=== PATIENT | female | born 1935 | race Caucasian/White ===

== ENCOUNTER 2018-01-13 08:03 | Day surgery (SDC) | payer MEDICARE, BC ==
[2018-01-13] MEDS ORDERED: Lactated Ringers 1,000 ML IV SCH (08:45)
[2018-01-13] MEDS ORDERED: Propofol 200 MG/20 ML SDV ONE (09:19)
[2018-01-13] MEDS ORDERED: fentaNYL 100 MCG/2 ML SDV ONE (09:19)
[2018-01-13] MEDS ORDERED: Midazolam 1 MG/ML 2 ML SDV ONE (09:20)
--- NOTE | 2018-01-13 11:47 | OR ---
DATE OF PROCEDURE: 01/13/2018 PREOPERATIVE DIAGNOSES: 1. Dysphagia. 2. Colon cancer screening. 3. Reportedly, positive FIT test. POSTOPERATIVE DIAGNOSES: 1. Unremarkable esophagus. 2. Pre-pyloric ulcers. 3. Unremarkable colon. PROCEDURES PERFORMED: 1. Esophagogastroduodenoscopy with antral biopsies for CLOtest, sent for pathology to look for Helicobacter pylori. 2. Colonoscopy to the cecum. ANESTHESIA: IV anesthesia with monitored anesthesia care. INDICATION: This 82-year-old white female is referred for upper and lower endoscopies. Indication for upper endoscopy is dysphagia. She says occasionally food gets stuck and will not pass, and she has to vomit it back up to relieve the obstruction. Indication for colonoscopy is positive FIT test, and she has not had one in over 10 years. I counseled her for these procedures, including risks and alternatives, and she gave her informed consent to proceed. DESCRIPTION OF PROCEDURE: The patient was placed in the left lateral decubitus position. IV anesthesia was administered by the Anesthesia Service. Time-out was held. The flexible video Olympus upper endoscope was passed through her mouth, down her esophagus, and into her stomach. The scope was easily passed through the pylorus and into the duodenum, reaching its third portion. The scope was then slowly withdrawn examining the mucosa throughout. The duodenal mucosa appeared unremarkable. The scope was brought up through the pylorus and into the antrum. In the antrum, we saw several small pre-pyloric ulcers. There was no bleeding associated with them. We obtained biopsies of this area for pathology to look for Helicobacter pylori and for CLOtest. The scope was retroflexed. The proximal stomach appeared unremarkable. The scope was straightened and brought up to the GE junction. This appeared unremarkable. The scope was then brought up through the unremarkable-appearing esophagus and was removed. Next, a rectal exam was performed, which was unremarkable. The flexible video Olympus colonoscope was introduced through her anus, up her rectum and out her colon, all the way to the cecum. Once the cecum was reached, the scope was slowly withdrawn, examining the mucosa throughout. No mucosal abnormalities were noted. The scope was retroflexed in the rectum with the distal rectum appearing unremarkable. The scope was straightened and removed. She tolerated the procedure well. Wesly Birmingham MD /[id number]
[2018-01-13 12:08] VITALS: BP 110/67
== END 2018-01-13 12:40 | disposition home or self-care (01) ==
LOC: JP.SDS 08:03
PROVIDERS: ATTEND Surgery
DX: R13.10 Dysphagia, unspecified (principal); R19.5 Other fecal abnormalities; I48.91 Unspecified atrial fibrillation; J43.9 Emphysema, unspecified; Z88.0 Allergy status to penicillin; Z88.2 Allergy status to sulfonamides; Z88.5 Allergy status to narcotic agent
CPT/HCPCS: 43239; 45378; 87081; J2250; J2704; J3010; J7120

== ENCOUNTER 2018-07-31 02:34 | Emergency (ER) | payer MEDICARE, BC ==
[2018-07-31 02:58] VITALS: BP 132/78
--- NOTE | 2018-07-31 03:19 | EDM.PDOC ---
ED HPI GENERAL MEDICAL PROBLEM - General Chief Complaint: ENT Problem Stated Complaint: NOSEBLEED Time Seen by Provider: 07/31/18 03:12 Source of Information: Reports: Patient, Family, RN Notes Reviewed History Limitations: Reports: No Limitations - History of Present Illness INITIAL COMMENTS - FREE TEXT/NARRATIVE: 83-year-old female presents emergency department day complaint of nosebleed right naris, she states she awoke this morning and had bleeding after she blew her nose was unable to get it stopped does take Coumadin for history of atrial fibrillation, otherwise no other complaints Treatments HOME PERFORMANCE CONSULTANT: Reports: Other (see below) Other Treatments HOME PERFORMANCE CONSULTANT: none - Related Data Allergies Allergy/AdvReac Type Severity Reaction Status Date / Time adhesive Allergy Other Verified 07/31/18 02:55 morphine Allergy Hallucinati Verified 07/31/18 02:55 ons Penicillins Allergy Rash Verified 07/31/18 02:55 Sulfa (Sulfonamide Allergy Hives Verified 07/31/18 02:55 Antibiotics) Home Meds: Home Meds Albuterol Sulfate [Proair Hfa] 2 puff IH ASDIRECTED PRN 03/09/13 [History] Calcium/Mag/D3/B12/FA/B6/[place] [Folgard OS] 1 each PO DAILY 03/09/13 [History] Metoprolol Tartrate 50 mg PO BID 03/09/13 [History] Multivitamin [Multi-Vitamin Daily] 1 each PO DAILY 03/09/13 [History] Warfarin Sliding Scale [Coumadin Sliding Scale] 5 mg PO ASDIRECTED 01/11/18 [ History] Fluticasone/Vilanterol [Breo Ellipta 100-25 MCG Inhalation Kit] 1 inh INH DAILY 07/31/18 [History] Warfarin [Coumadin] 2.5 mg PO DAILY 07/31/18 [History] Past Medical History HEENT History: Reports: Allergic Rhinitis, Cataract, Impaired Vision Cardiovascular History: Reports: Afib Respiratory History: Reports: Asthma, COPD Gastrointestinal History: Reports: GERD 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: Musculoskeletal History: Reports: Arthritis Hematologic History: Reports: Anticoagulation Therapy, Blood Transfusion(s) Dermatologic History: Reports: Eczema - Infectious Disease History Infectious Disease History: Reports: Chicken Pox, Measles, Mumps - Past Surgical History HEENT Surgical History: Reports: Cataract Surgery, Tonsillectomy GI Surgical History: Reports: Appendectomy, Cholecystectomy, Colonoscopy, EGD, Hernia, Inguinal Female Surgical History: Reports: Breast Biopsy, Hysterectomy, Salpingo- Oophorectomy Social & Family History - Family History Family Medical History: Noncontributory - Tobacco Use Smoking Status *Q: Never Smoker - Caffeine Use Caffeine Use: Reports: Coffee, Soda - Recreational Drug Use Recreational Drug Use: No ED ROS ENT - Review of Systems Review Of Systems: See Below Constitutional: Reports: No Symptoms HEENT: Reports: Nosebleed Respiratory: Reports: No Symptoms Cardiovascular: Reports: No Symptoms GI/Abdominal: Reports: No Symptoms ED EXAM, ENT - Physical Exam Exam: See Below Exam Limited By: No Limitations General Appearance: Alert, WD/WN, No Apparent Distress Eye Exam: Bilateral Eye: Normal Inspection Nose: Normal Inspection, Dried Blood. No: Active Bleeding Mouth/Throat: Normal Inspection, Normal Gums, Normal Lips, Normal Oropharynx, Normal Teeth Head: Atraumatic, Normocephalic Respiratory/Chest: No Respiratory Distress Course - Vital Signs Last Recorded V/S: Last Vital Signs Temp 98.1 F 07/31/18 02:58 Pulse 88 07/31/18 02:58 Resp 16 07/31/18 02:58 BP 132/78 07/31/18 02:58 Pulse Ox 98 07/31/18 02:58 - Orders/Labs/Meds Labs: Laboratory Tests 07/31/18 07/31/18 Range/Units 03:25 03:25 Hgb 13.7 (12.0-15.0) g/dL PT 23.0 H (9.5-12.0) sec INR 2.19 H (0.80-1.20) Departure - Departure Time of Disposition: 04:04 Disposition: Home, Self-Care 01 Condition: Good Clinical Impression: Epistaxis - Discharge Information Referrals: Jim Moore NP [Primary Care Provider] - Forms: ED Department Discharge Additional Instructions: Continue to use the nose clamp as needed to control bleeding symptoms, Please followup with your primary care provider in 3-5 days if not better, please call return to the emergency department with worsening of symptoms. - Assessment/Plan Plan: Assessment Acuity = acute Site and laterality = epistaxis right naris Etiology = unclear etiology Manifestations = none] Location of injury = Home Lab values = hemoglobin 13.7, INR 2.19 Plan After initial clamping she had no bleeding, plan is discharge home with nose clamp and follow-up with primary care 3-5 days if symptoms continue instructions were provided This note was dictated using [employer] voice recognition software please call with any questions on syntax or grammar.
== END 2018-07-31 04:17 | disposition home or self-care (01) ==
LOC: JP.ED 02:34
DX: R04.0 Epistaxis (principal); I48.91 Unspecified atrial fibrillation; J44.9 Chronic obstructive pulmonary disease, unspecified; Z88.8 Allergy status to other drugs, medicaments and biological substances; Z88.0 Allergy status to penicillin; Z88.2 Allergy status to sulfonamides; Z79.899 Other long term (current) drug therapy; Z79.01 Long term (current) use of anticoagulants
CPT/HCPCS: 36415; 85018; 85610; 99282; 99284

== ENCOUNTER 2021-05-25 16:21 | Inpatient (IN) | payer MEDICARE, BC ==
[2021-05-25] MEDS ORDERED: Sodium Chloride 0.9% 10 ML Syringe FLUSH PRN (17:03)
--- NOTE | 2021-05-25 17:41 | EDM.PDOC ---
ED HPI GENERAL MEDICAL PROBLEM - General Chief Complaint: Gastrointestinal Problem Stated Complaint: SOB, FATIGUE, CONSTIPATION AND DIARRHEA Time Seen by Provider: 05/25/21 16:51 Source of Information: Reports: Patient, Family History Limitations: Reports: No Limitations - History of Present Illness INITIAL COMMENTS - FREE TEXT/NARRATIVE: Jose is an 85-year-old female presenting to the ED with concerns of GI bleeding. Patient was in her usual state of health when she went to have a bowel movement this morning and initially had a very hard "rabbit pellet" stool followed by d ark bloody diarrhea. She has had several episodes since. She is on anticoagulation with Coumadin for atrial fibrillation. She denies taking any aspirin but has been taking some Tylenol and ibuprofen. Does report having some increased lightheadedness and dizziness today as well as more fatigue prompting her family to bring her in for evaluation. He denies any previous history of ulcers or GI bleed. - Related Data Allergies Allergy/AdvReac Type Severity Reaction Status Date / Time adhesive Allergy Other Verified 08/06/18 16:09 morphine Allergy Hallucinati Verified 08/06/18 16:09 ons Penicillins Allergy Rash Verified 08/06/18 16:09 Sulfa (Sulfonamide Allergy Hives Verified 08/06/18 16:09 Antibiotics) Home Meds: Home Meds Albuterol Sulfate [Proair Hfa] 2 puff IH ASDIRECTED PRN 03/09/13 [History] Calcium/Mag/D3/B12/FA/B6/[place] [Folgard OS] 1 each PO DAILY 03/09/13 [History] Metoprolol Tartrate 50 mg PO BID 03/09/13 [History] Multivitamin [Multi-Vitamin Daily] 1 each PO DAILY 03/09/13 [History] Warfarin Sliding Scale [Coumadin Sliding Scale] 5 mg PO ASDIRECTED 01/11/18 [History] Fluticasone/Vilanterol [Breo Ellipta 100-25 MCG Inhalation Kit] 1 inh INH DAILY 07/31/18 [History] Warfarin [Coumadin] 2.5 mg PO DAILY 07/31/18 [History] Past Medical History HEENT History: Reports: Allergic Rhinitis, Cataract, Impaired Vision Cardiovascular History: Reports: Afib Respiratory History: Reports: Asthma, COPD Gastrointestinal History: Reports: 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: Musculoskeletal History: Reports: Arthritis Hematologic History: Reports: Anticoagulation Therapy, Blood Transfusion(s) Dermatologic History: Reports: Eczema - Infectious Disease History Infectious Disease History: Reports: Chicken Pox, Measles, Mumps - Past Surgical History HEENT Surgical History: Reports: Cataract Surgery, Tonsillectomy Cardiovascular Surgical History: Reports: None GI Surgical History: Reports: Appendectomy, Cholecystectomy, Colonoscopy, EGD, Hernia, Inguinal Female Surgical History: Reports: Breast Biopsy, Hysterectomy, Salpingo- Oophorectomy Social & Family History - Family History Family Medical History: No Pertinent Family History - Tobacco Use Tobacco Use Status *Q: Never Tobacco User - Caffeine Use Caffeine Use: Reports: Coffee ED ROS GENERAL - Review of Systems Review Of Systems: See Below Constitutional: Reports: Malaise, Weakness (Generalized) HEENT: Reports: No Symptoms Respiratory: Reports: No Symptoms Cardiovascular: Reports: No Symptoms Endocrine: Reports: No Symptoms GI/Abdominal: Reports: Diarrhea, Hematochezia, Melena : Reports: No Symptoms Musculoskeletal: Reports: No Symptoms Skin: Reports: No Symptoms Neurological: Reports: Dizziness Psychiatric: Reports: No Symptoms Hematologic/Lymphatic: Reports: Easy Bleeding (Patient is anticoagulated with Coumadin for atrial fibrillation) Immunologic: Reports: No Symptoms ED EXAM, GI/ABD - Physical Exam Exam: See Below Exam Limited By: No Limitations General Appearance: Alert, No Apparent Distress, Anxious (Mildly anxious) Eyes: Bilateral: EOMI Throat/Mouth: Normal Inspection, Normal Oropharynx, Normal Voice, No Airway Compromise Head: Normocephalic Neck: Normal Inspection, Supple Respiratory/Chest: No Respiratory Distress, Lungs Clear, Normal Breath Sounds Cardiovascular: Normal Peripheral Pulses, No Murmur, Irregularly Irregular GI/Abdominal Exam: Normal Bowel Sounds, Soft, Non-Tender. No: Guarding, Rebound Rectal (Female) Exam: Normal Exam, Normal Rectal Tone, Black Stool, Heme + Stool. No: Hemorrhoids, Mass, Perirectal Abscess, Rectal Fissure Extremities: Normal Inspection Neurological: Alert, Oriented, Normal Cognition, No Motor/Sensory Deficits Course - Vital Signs Last Recorded V/S: Last Vital Signs Temp 36.7 C 05/25/21 17:48 Pulse 118 H 05/25/21 17:48 Resp 26 H 05/25/21 17:48 BP 96/45 L 05/25/21 17:48 Pulse Ox 96 05/25/21 17:48 - Orders/Labs/Meds Orders: Active Orders 24 hr Category Date Time Status COVID-19/FLU A+B/RSV [MOLEC] Stat Lab 05/25/21 18:07 Ordered PATIENT RETYPE [BBK] Stat Lab 05/25/21 17:10 Results TYPE AND SCREEN [BBK] Stat Lab 05/25/21 17:10 Received Phytonadione [AquaMephyton] 10 mg Med 05/25/21 17:48 Active Sodium Chloride 0.9% [Normal Saline] 50 ml IV NOW Sodium Chloride 0.9% [Saline Flush] Med 05/25/21 17:03 Active 10 ml FLUSH ASDIRECTED PRN Isolation [COMM] Stat Oth 05/25/21 18:07 Ordered Saline Lock Insert [OM.PC] Routine Oth 05/25/21 17:03 Ordered Medication Orders Phytonadione 10 mg/ Sodium (Chloride) 51 mls @ 100 mls/hr IV NOW ONE Stop: 05/25/21 18:18 Last Admin: 05/25/21 17:57 Dose: 100 mls/hr Documented by: PREILOR Sodium Chloride (Sodium Chloride 0.9% 10 Ml Syringe) 10 ml FLUSH ASDIRECTED PRN PRN Reason: Keep Vein Open Last Admin: 05/25/21 17:17 Dose: 10 ml Documented by: PREILOR Labs: Laboratory Tests 05/25/21 05/25/21 05/25/21 Range/Units 17:10 17:10 17:10 WBC 8.3 (4.5-11.0) K/uL RBC 3.03 L (3.30-5.50) M/uL Hgb 9.7 L D (12.0-15.0) g/dL Hct 30.0 L (36.0-48.0) % MCV 99 H (80-98) fL MCH 32 H (27-31) pg MCHC 32 (32-36) % Plt Count 252 (150-400) K/uL Neut % (Auto) 83.5 H (36-66) % Lymph % (Auto) 12.7 L (24-44) % [place] % (Auto) 3.7 (2-6) % Eos % (Auto) 0.0 L (2-4) % Baso % (Auto) 0.1 (0-1) % PT 31.4 H (9.2-10.6) sec INR 3.2 APTT 30.3 (21.4-31.8) sec Sodium 143 (140-148) mmol/L Potassium 5.0 (3.6-5.2) mmol/L Chloride 106 (100-108) mmol/L Carbon Dioxide 26 (21-32) mmol/L Anion Gap 11.2 (5.0-14.0) mmol/L BUN 67 H D (7-18) mg/dL Creatinine 0.7 (0.6-1.0) mg/dL Est Cr Clr Drug Dosing 47.51 mL/min Estimated GFR (MDRD) > 60 (>60) Glucose 135 H (74-106) mg/dL Lactic Acid (0.4-2.0) mmol/L Calcium 8.7 (8.5-10.1) mg/dL Total Bilirubin 0.9 (0.2-1.0) mg/dL AST 19 (15-37) U/L ALT 31 (12-78) U/L Alkaline Phosphatase 110 (46-116) U/L Total Protein 5.9 L (6.4-8.2) g/dL Albumin 3.2 L (3.4-5.0) g/dL Globulin 2.7 (2.3-3.5) g/dL Albumin/Globulin Ratio 1.2 (1.2-2.2) Blood Type Gel Antibody Screen 05/25/21 05/25/21 Range/Units 17:10 17:10 WBC (4.5-11.0) K/uL RBC (3.30-5.50) M/uL Hgb (12.0-15.0) g/dL Hct (36.0-48.0) % MCV (80-98) fL MCH (27-31) pg MCHC (32-36) % Plt Count (150-400) K/uL Neut % (Auto) (36-66) % Lymph % (Auto) (24-44) % [place] % (Auto) (2-6) % Eos % (Auto) (2-4) % Baso % (Auto) (0-1) % PT (9.2-10.6) sec INR APTT (21.4-31.8) sec Sodium (140-148) mmol/L Potassium (3.6-5.2) mmol/L Chloride (100-108) mmol/L Carbon Dioxide (21-32) mmol/L Anion Gap (5.0-14.0) mmol/L BUN (7-18) mg/dL Creatinine (0.6-1.0) mg/dL Est Cr Clr Drug Dosing mL/min Estimated GFR (MDRD) (>60) Glucose (74-106) mg/dL Lactic Acid 2.8 H (0.4-2.0) mmol/L Calcium (8.5-10.1) mg/dL Total Bilirubin (0.2-1.0) mg/dL AST (15-37) U/L ALT (12-78) U/L Alkaline Phosphatase (46-116) U/L Total Protein (6.4-8.2) g/dL Albumin (3.4-5.0) g/dL Globulin (2.3-3.5) g/dL Albumin/Globulin Ratio (1.2-2.2) Blood Type O NEGATIVE Gel Antibody Screen Negative Meds: Medications Generic Name Dose Route Start Last Admin Trade Name Freq PRN Reason Stop Dose Admin Phytonadione 10 mg/ Sodium 51 mls @ 100 mls/hr 05/25/21 17:48 05/25/21 17:57 Chloride IV 05/25/21 18:18 100 mls/hr NOW ONE Administration Sodium Chloride 10 ml 05/25/21 17:03 05/25/21 17:17 Sodium Chloride 0.9% 10 Ml Syringe FLUSH 10 ml ASDIRECTED PRN Administration Keep Vein Open Discontinued Medications Generic Name Dose Route Start Last Admin Trade Name Freq PRN Reason Stop Dose Admin Pantoprazole Sodium 40 mg 05/25/21 18:04 Pantoprazole 40 Mg Vial IVPUSH 05/25/21 18:05 ONETIME ONE - Re-Assessments/Exams Free Text/Narrative Re-Assessment/Exam: 05/25/21 18:07 patient's labs showing a leukocyte count of 8.3, hemoglobin of 9.7 which is down from 13.73 months ago, had a crit of 30 and a platelet count of 252,000. Her comprehensive metabolic panel shows a sodium 143, potassium 5.0, chloride of 106, bicarbonate of 26, BUN of 67 with a creatinine of 0.7 and a glucose of 135. Her GFR is calculated greater than 60. Her PT/INR is 31.4/3.2 and her PTT is 30.3. Patient's lactic acid is 2.8 likely elevated as her BUN is from gastrointestinal bleeding. Patient is positive for blood on the digital rectal exam. With her INR being 3.2, we will give her vitamin K to reverse her in preparation for an endoscopy tomorrow. I discussed the case with Dr. Hodge who will plan to further investigate her source of bleeding. We did initiate PPI with pantoprazole 40 mg IV push. The Coumadin reversal was initiated with vitamin K 10 mg IV. I discussed the case with Dr. Grimm who will arrange for admission of the patient in preparation for the endoscopy. This was discussed with the patient and family who are in agreement with this plan. Departure - Departure Time of Disposition: 18:10 Disposition: Admitted As Inpatient 65 Clinical Impression: GI bleeding Qualifiers: GI bleed type/associated pathology: unspecified gastrointestinal hemorrhage type Qualified Code(s): K92.2 - Gastrointestinal hemorrhage, unspecified - Discharge Information Referrals: Figueroa Coronado MD [Primary Care Provider] - Forms: ED Department Discharge Sepsis Event Note (ED) - Focused Exam Vital Signs: Vital Signs Temp Pulse Resp BP Pulse Ox 05/25/21 17:48 36.7 C 118 H 26 H 96/45 L 96 05/25/21 17:47 118 H 26 H 96/45 L 96 05/25/21 16:45 36.7 C 117 H 22 H 110/53 L 97 - Problem List & Annotations (1) GI bleeding SNOMED Code(s): 86788147 Code(s): K92.2 - GASTROINTESTINAL HEMORRHAGE, UNSPECIFIED Status: Acute Priority: High Current Visit: Yes Qualifiers: GI bleed type/associated pathology: unspecified gastrointestinal hemorrhage type Qualified Code(s): K92.2 - Gastrointestinal hemorrhage, unspecified - Problem List Review Problem List Initiated/Reviewed/Updated: Yes - My Orders Last 24 Hours: My Active Orders 05/25/21 17:03 Sodium Chloride 0.9% [Saline Flush] 10 ml FLUSH ASDIRECTED PRN Saline Lock Insert [OM.PC] Routine 05/25/21 17:10 PATIENT RETYPE [BBK] Stat TYPE AND SCREEN [BBK] Stat 05/25/21 17:48 Phytonadione [AquaMephyton] 10 mg Sodium Chloride 0.9% [Normal Saline] 50 ml IV NOW 05/25/21 18:07 COVID-19/FLU A+B/RSV [MOLEC] Stat Isolation [COMM] Stat - Assessment/Plan Last 24 Hours: My Active Orders 05/25/21 17:03 Sodium Chloride 0.9% [Saline Flush] 10 ml FLUSH ASDIRECTED PRN Saline Lock Insert [OM.PC] Routine 05/25/21 17:10 PATIENT RETYPE [BBK] Stat TYPE AND SCREEN [BBK] Stat 05/25/21 17:48 Phytonadione [AquaMephyton] 10 mg Sodium Chloride 0.9% [Normal Saline] 50 ml IV NOW 05/25/21 18:07 COVID-19/FLU A+B/RSV [MOLEC] Stat Isolation [COMM] Stat
[2021-05-25] MEDS ORDERED: Phytonadione 10 MG in Sodium Chloride 0.9% 50 ML IV ONE (17:48)
[2021-05-25] MEDS ORDERED: Pantoprazole 40 MG Vial IVPUSH ONE (18:04)
[2021-05-25 18:49] LABS: CORONAVIRUS COVID-19 NAA NEGATIVE (NEGATIVE)
--- NOTE | 2021-05-25 18:56 | PCM.HP.2 ---
H&P History of Present Illness - General Date of Service: 05/25/21 Admit Problem/Dx: Admission Diagnosis/Problem Admission Diagnosis/Problem Upper gastrointestinal hemorrhage Source of Information: Patient, Family, Provider History Limitations: Reports: No Limitations - History of Present Illness Initial Comments - Free Text/Narative: CC: I got dizzy and light headed HPI: Jose presents to the emergency room today with intermittent lightheadedness as well as black tarry stools with some blood. She reports intermittent difficulties with dizziness/lightheadedness usually with activity over the past week. These usually resolved with resting. This morning she had a bowel movement that initially started as a very hard stool but was soon followed by what she describes as a fairly large amount of black and tarry stool with some blood that was maroon in color. She had several of these episodes at home before coming in. She did have associated dizziness. She does not report any chest pain. She has not had heartburn. She does not report fevers or chills but has noticed some sweats in the middle of the night, usually around 3 AM. She feels more short of breath than usual and on a good day has dyspnea with even mild exertion. She does not report any chest pain. No nausea or vomiting. Stools had been normal for her which means constipated recently. She does not use nonsteroidal anti-inflammatory medications other than rarely. No use of alcohol or tobacco other than rarely having a glass of wine. No history of gastrointestinal bleeding. Patient does report longstanding difficulty with solid foods feeling like they get stuck while she is trying to swallow them. This has been worse recently. Work-up in the emergency room revealed hemoglobin of 9.7 and as recently as 3 months ago was 13.7. She is mildly tachycardic and has a mildly elevated lactic acid consistent with hypoperfusion. INR is 3. She has received pantoprazole and IV vitamin K in the emergency room. She will be admitted for management of a presumed upper GI bleed with anemia due to blood loss. - Related Data Allergies/Adverse Reactions: Allergies Allergy/AdvReac Type Severity Reaction Status Date / Time adhesive Allergy Other Verified 08/06/18 16:09 morphine Allergy Hallucinati Verified 08/06/18 16:09 ons Penicillins Allergy Rash Verified 08/06/18 16:09 Sulfa (Sulfonamide Allergy Hives Verified 08/06/18 16:09 Antibiotics) Home Medications: Home Meds Albuterol Sulfate [Proair Hfa] 2 puff IH ASDIRECTED PRN 03/09/13 [History] Calcium/Mag/D3/B12/FA/B6/[place] [Folgard OS] 1 each PO DAILY 03/09/13 [History] Metoprolol Tartrate 50 mg PO BID 03/09/13 [History] Multivitamin [Multi-Vitamin Daily] 1 each PO DAILY 03/09/13 [History] Warfarin Sliding Scale [Coumadin Sliding Scale] 5 mg PO ASDIRECTED 01/11/18 [History] Fluticasone/Vilanterol [Breo Ellipta 100-25 MCG Inhalation Kit] 1 inh INH DAILY 07/31/18 [History] Warfarin [Coumadin] 2.5 mg PO DAILY 07/31/18 [History] Past Medical History HEENT History: Reports: Allergic Rhinitis, Cataract, Impaired Vision Cardiovascular History: Reports: Afib Respiratory History: Reports: Asthma, COPD Gastrointestinal History: Reports: GERD HOME HEALTH TRAVEL OT History: Reports: Musculoskeletal History: Reports: Arthritis Hematologic History: Reports: Anticoagulation Therapy, Blood Transfusion(s) Dermatologic History: Reports: Eczema - Infectious Disease History Infectious Disease History: Reports: Chicken Pox, Measles, Mumps - Past Surgical History HEENT Surgical History: Reports: Cataract Surgery, Tonsillectomy Cardiovascular Surgical History: Reports: None GI Surgical History: Reports: Appendectomy, Cholecystectomy, Colonoscopy, EGD, Hernia, Inguinal Female Surgical History: Reports: Breast Biopsy, Hysterectomy, Salpingo- Oophorectomy Social & Family History - Family History Family Medical History: No Pertinent Family History - Tobacco Use Tobacco Use Status *Q: Never Tobacco User - Caffeine Use Caffeine Use: Reports: Coffee - Alcohol Use Alcohol Use History: Yes Date/Time of Last Drink Comment: Rare glass of wine Alcohol Use in Last Twelve Months: Yes Alcohol Use Frequency: Rarely H&P Review of Systems - Review of Systems: Review Of Systems: See Below Free Text/Narrative: A complete 12 point review of systems was obtained. Pertinent positives and negatives are noted in the history of present illness. All other systems were reviewed and were negative except as noted. Exam - Exam Exam: See Below - Vital Signs Vital Signs: Last Vital Signs Temp 36.7 C 05/25/21 17:48 Pulse 110 H 05/25/21 18:40 Resp 40 H 05/25/21 18:40 BP 96/49 L 05/25/21 18:40 Pulse Ox 98 05/25/21 18:40 Weight: 52.163 kg - Exam Quality Assessment: No: Supplemental Oxygen General: Alert, Oriented, Cooperative, Mild Distress, Other (Pale) HEENT: Conjunctiva Clear, Mucosa Moist & [place], Other (Subconjunctival pallor). No: Scleral Icterus Neck: Supple, Trachea Midline. No: Lymphadenopathy Lungs: Clear to Auscultation. No: Normal Respiratory Effort (Mild tachypnea) Cardiovascular: Irregular Rhythm, Tachycardia. No: Systolic Murmur GI/Abdominal Exam: Normal Bowel Sounds, Soft, No Distention, No Mass, Tender (Mild in the epigastrium) Back Exam: Normal Inspection, Full Range of Motion Extremities: No Pedal Edema. No: Increased Warmth Skin: Warm, Dry. No: Rash Neuro Extensive - Mental Status: Alert, Oriented x3, Nl Response to Commands Neuro Extensive - Motor, Sensory, Reflexes: No: Dysarthria, Abnormal Motor, Tremor Psychiatric: Alert, Normal Affect - Patient Data Lab Results Last 24 hrs: Laboratory Results - last 24 hr 05/25/21 05/25/21 05/25/21 Range/Units 17:10 17:10 17:10 WBC 8.3 (4.5-11.0) K/uL RBC 3.03 L (3.30-5.50) M/uL Hgb 9.7 L D (12.0-15.0) g/dL Hct 30.0 L (36.0-48.0) % MCV 99 H (80-98) fL MCH 32 H (27-31) pg MCHC 32 (32-36) % Plt Count 252 (150-400) K/uL Neut % (Auto) 83.5 H (36-66) % Lymph % (Auto) 12.7 L (24-44) % [place] % (Auto) 3.7 (2-6) % Eos % (Auto) 0.0 L (2-4) % Baso % (Auto) 0.1 (0-1) % PT 31.4 H (9.2-10.6) sec INR 3.2 APTT 30.3 (21.4-31.8) sec Sodium 143 (140-148) mmol/L Potassium 5.0 (3.6-5.2) mmol/L Chloride 106 (100-108) mmol/L Carbon Dioxide 26 (21-32) mmol/L Anion Gap 11.2 (5.0-14.0) mmol/L BUN 67 H D (7-18) mg/dL Creatinine 0.7 (0.6-1.0) mg/dL Est Cr Clr Drug Dosing 47.51 mL/min Estimated GFR (MDRD) > 60 (>60) Glucose 135 H (74-106) mg/dL Lactic Acid (0.4-2.0) mmol/L Calcium 8.7 (8.5-10.1) mg/dL Total Bilirubin 0.9 (0.2-1.0) mg/dL AST 19 (15-37) U/L ALT 31 (12-78) U/L Alkaline Phosphatase 110 (46-116) U/L Total Protein 5.9 L (6.4-8.2) g/dL Albumin 3.2 L (3.4-5.0) g/dL Globulin 2.7 (2.3-3.5) g/dL Albumin/Globulin Ratio 1.2 (1.2-2.2) Influenza Type A RNA (NEGATIVE) RSV RNA (INAAT) (NEGATIVE) Influenza Type B RNA (NEGATIVE) SARS-CoV-2 RNA (TAVO) (NEGATIVE) Blood Type Gel Antibody Screen 05/25/21 05/25/21 05/25/21 Range/Units 17:10 17:10 18:09 WBC (4.5-11.0) K/uL RBC (3.30-5.50) M/uL Hgb (12.0-15.0) g/dL Hct (36.0-48.0) % MCV (80-98) fL MCH (27-31) pg MCHC (32-36) % Plt Count (150-400) K/uL Neut % (Auto) (36-66) % Lymph % (Auto) (24-44) % [place] % (Auto) (2-6) % Eos % (Auto) (2-4) % Baso % (Auto) (0-1) % PT (9.2-10.6) sec INR APTT (21.4-31.8) sec Sodium (140-148) mmol/L Potassium (3.6-5.2) mmol/L Chloride (100-108) mmol/L Carbon Dioxide (21-32) mmol/L Anion Gap (5.0-14.0) mmol/L BUN (7-18) mg/dL Creatinine (0.6-1.0) mg/dL Est Cr Clr Drug Dosing mL/min Estimated GFR (MDRD) (>60) Glucose (74-106) mg/dL Lactic Acid 2.8 H (0.4-2.0) mmol/L Calcium (8.5-10.1) mg/dL Total Bilirubin (0.2-1.0) mg/dL AST (15-37) U/L ALT (12-78) U/L Alkaline Phosphatase (46-116) U/L Total Protein (6.4-8.2) g/dL Albumin (3.4-5.0) g/dL Globulin (2.3-3.5) g/dL Albumin/Globulin Ratio (1.2-2.2) Influenza Type A RNA Negative (NEGATIVE) RSV RNA (INAAT) Negative (NEGATIVE) Influenza Type B RNA Negative (NEGATIVE) SARS-CoV-2 RNA (TAVO) Negative (NEGATIVE) Blood Type O NEGATIVE Gel Antibody Screen Negative Result Diagrams: 05/25/21 17:10 05/25/21 17:10 Tre Results Last 24 hrs: Microbiology 05/25/21 17:05 Stool Occult Blood (TRE) - Final Stool / Feces Sepsis Event Note - Evaluation Sepsis Screening Result: No Definite Risk - Focused Exam Vital Signs: Vital Signs Temp Pulse Resp BP Pulse Ox 05/25/21 18:40 110 H 40 H 96/49 L 98 05/25/21 17:48 36.7 C 118 H 26 H 96/45 L 96 05/25/21 17:47 118 H 26 H 96/45 L 96 05/25/21 16:45 36.7 C 117 H 22 H 110/53 L 97 *Q Meaningful Use (ADM) - VTE *Q VTE Pharmacological Contraindications *Q: Active Hemorrhage - VTE Risk Assess *Q Each Risk Factor Represents 1 Point: Abnormal Pulmonary Function (COPD) Total Score 1 Point Risk Factors: 1 Each Risk Factor Represents 2 Points: None Total Score 2 Point Risk Factors: 0 Each Risk Factor Represents 3 Points: Age 75 Years or Greater Total Score 3 Point Risk Factors: 3 Each Risk Factor Represents 5 Points: None Total Score 5 Point Risk Factors: 0 Venous Thromboembolism Risk Factor Score *Q: 4 - Problem List (1) Acute upper gastrointestinal hemorrhage SNOMED Code(s): 21492275 ICD Code: K92.2 - GASTROINTESTINAL HEMORRHAGE, UNSPECIFIED Status: Acute Current Visit: Yes (2) Anemia due to blood loss, acute SNOMED Code(s): 675777985 ICD Code: D62 - ACUTE POSTHEMORRHAGIC ANEMIA Status: Acute Current Visit: Yes (3) Chronic atrial fibrillation SNOMED Code(s): 907392795 ICD Code: I48.20 - CHRONIC ATRIAL FIBRILLATION, UNSPECIFIED Status: Chronic Current Visit: Yes Problem List Initiated/Reviewed/Updated: Yes Orders Last 24hrs: Active Orders 24 hr Category Date Time Status Patient Status Manage Transfer [TRANSFER] Routine ADT 05/25/21 18:49 Ordered PATIENT RETYPE [BBK] Stat Lab 05/25/21 17:10 Results TYPE AND SCREEN [BBK] Stat Lab 05/25/21 17:10 Results Sodium Chloride 0.9% [Normal Saline] 1,000 ml Med 05/25/21 19:00 Active IV ASDIRECTED Sodium Chloride 0.9% [Normal Saline] 1,000 ml Med 05/25/21 19:00 Active IV ASDIRECTED Sodium Chloride 0.9% [Saline Flush] Med 05/25/21 17:03 Active 10 ml FLUSH ASDIRECTED PRN Isolation [COMM] Stat Oth 05/25/21 18:07 Ordered Saline Lock Insert [OM.PC] Routine Oth 05/25/21 17:03 Ordered Resuscitation Status Routine Resus Stat 05/25/21 18:50 Ordered Medication Orders Sodium Chloride (Normal Saline) 1,000 mls @ 100 mls/hr IV ASDIRECTED BENNETT Sodium Chloride (Normal Saline) 1,000 mls @ 500 mls/hr IV ASDIRECTED BENNETT Stop: 05/25/21 20:01 Sodium Chloride (Sodium Chloride 0.9% 10 Ml Syringe) 10 ml FLUSH ASDIRECTED PRN PRN Reason: Keep Vein Open Last Admin: 05/25/21 17:17 Dose: 10 ml Documented by: PREILOR Assessment/Plan Comment:: ASSESSMENT AND PLAN - Upper gastrointestinal hemorrhage-complicated by anemia due to blood loss. Suspect upper GI source versus right colon source. No history of gastrointestinal bleeding. She has therapeutic with her warfarin which has been reversed in the emergency room. She is tachycardic at rest and symptomatic with any activity. Hemoglobin has dropped nearly 4 points from the most recent value. -PPI every 12 hours -500 normal saline bolus now and then start IV fluids continuously -INR in the morning -Repeat hemoglobin and lactic acid at 10 PM, transfuse if hemoglobin less than 8 or persistently hypotensive -Repeat hemoglobin in the morning -Consultation with Dr. Hodge to consider endoscopy in the morning Dysphagia-longstanding and progressive. Mostly solids but occasionally liquids. Sounds like this could be achalasia versus some sort of mechanical obstruction distally. Should get a good look anatomically with the upper endoscopy tomorrow. She does report night sweats. -EGD in the morning Chronic atrial fibrillation-chronically anticoagulated. She did receive vitamin K in the emergency room. She is mildly tachycardic. -Continue metoprolol but reduce dose to 25 mg -Hold warfarin as above Maintenance issues - -DVT prophylaxis-mechanical with active hemorrhage -GI prophylaxis-PPI as above -Nutrition-n.p.o. after midnight -Bardales catheter-not indicated CODE STATUS -DNR/DNI Admission justification -this patient will be admitted for inpatient services and is medically appropriate meeting medical necessity for inpatient admission as outlined in my documentation. I reasonably expect the patient will require inpatient services that span a period time over 2 midnights. I reasonably expect this patient to be discharged or transferred within 96 hours [facility]. Disposition -I anticipate discharge home after the hospital stay Primary care physician -CONCETTA Powers M.D. - Mortality Measure Prognosis:: Good
[2021-05-25] MEDS ORDERED: Sodium Chloride 0.9% 1,000 ML IV SCH (19:00)
[2021-05-25] MEDS ORDERED: Melatonin 3 MG Tab PO PRN (19:26)
[2021-05-25] MEDS ORDERED: Albuterol 8 GM Inhaler INH PRN (19:26)
[2021-05-25] MEDS ORDERED: Albuterol 0.083% 2.5 MG/3 ML Neb Soln NEB PRN (19:26)
[2021-05-25] MEDS ORDERED: LORazepam 2 MG/ML SDV IVPUSH PRN (19:26)
[2021-05-25] MEDS ORDERED: Ondansetron 4 MG/2 ML SDV IV PRN (19:26)
[2021-05-25] MEDS ORDERED: Magnesium Hydroxide 400 MG/5 ML Susp 30 ML Cup PO PRN (19:26)
[2021-05-25] MEDS ORDERED: Ondansetron 4 MG Tab.DIS PO PRN (19:26)
[2021-05-25] MEDS ORDERED: Metoprolol Tartrate 50 MG Tab PO SCH ×2 (21:00)
[2021-05-25] MEDS: Sodium Chloride 0.9% 1,000 ML IV SCH (21:49)
[2021-05-26] MEDS: Pantoprazole 40 MG Vial IV SCH ×2 (06:27→18:29)
[2021-05-26] MEDS ORDERED: Propofol 200 MG/20 ML SDV ONE (06:39)
[2021-05-26] MEDS ORDERED: Lidocaine 2% 5 ML SDV ONE (06:39)
[2021-05-26] MEDS: Metoprolol Tartrate 25 MG Tab PO SCH ×3 (07:18→20:27)
[2021-05-26] MEDS: Sodium Chloride 0.9% 1,000 ML IV SCH (07:29)
[2021-05-26] MEDS ORDERED: Sodium Chloride 0.9% 1,000 ML IV SCH (09:15)
--- NOTE | 2021-05-26 09:52 | PCM.PN ---
- General Info Date of Service: 05/26/21 Subjective Update: No acute events overnight. Tachycardia slightly better today. No abdominal pain or nausea. No melena. Hemoglobin last night was 8.2 and is down to 7.8 this morning. She feels weak and does feel short of breath. EGD this morning revealed a gastric ulcer that was likely the bleeding source but was not actively bleeding. Functional Status: Reports: Pain Controlled - Review of Systems General: Reports: Weakness Gastrointestinal: Denies: Melena - Patient Data Vitals - Most Recent: Last Vital Signs Temp 36.6 C 05/26/21 08:30 Pulse 97 05/26/21 09:10 Resp 20 05/26/21 09:30 BP 95/69 05/26/21 09:30 Pulse Ox 90 L 05/26/21 09:30 Weight - Most Recent: 50.802 kg I&O - Last 24 Hours: Intake & Output 05/25/21 05/26/21 05/26/21 22:59 06:59 14:59 Intake Total 200 1811 100 Output Total 300 400 300 Balance -100 1411 -200 Lab Results Last 24 Hours: Laboratory Results - last 24 hr 05/25/21 05/25/21 05/25/21 Range/Units 17:10 17:10 17:10 WBC 8.3 (4.5-11.0) K/uL RBC 3.03 L (3.30-5.50) M/uL Hgb 9.7 L D (12.0-15.0) g/dL Hct 30.0 L (36.0-48.0) % MCV 99 H (80-98) fL MCH 32 H (27-31) pg MCHC 32 (32-36) % Plt Count 252 (150-400) K/uL Neut % (Auto) 83.5 H (36-66) % Lymph % (Auto) 12.7 L (24-44) % [place] % (Auto) 3.7 (2-6) % Eos % (Auto) 0.0 L (2-4) % Baso % (Auto) 0.1 (0-1) % PT 31.4 H (9.2-10.6) sec INR 3.2 APTT 30.3 (21.4-31.8) sec Sodium 143 (140-148) mmol/L Potassium 5.0 (3.6-5.2) mmol/L Chloride 106 (100-108) mmol/L Carbon Dioxide 26 (21-32) mmol/L Anion Gap 11.2 (5.0-14.0) mmol/L BUN 67 H D (7-18) mg/dL Creatinine 0.7 (0.6-1.0) mg/dL Est Cr Clr Drug Dosing 47.51 mL/min Estimated GFR (MDRD) > 60 (>60) Glucose 135 H (74-106) mg/dL Lactic Acid (0.4-2.0) mmol/L Calcium 8.7 (8.5-10.1) mg/dL Total Bilirubin 0.9 (0.2-1.0) mg/dL AST 19 (15-37) U/L ALT 31 (12-78) U/L Alkaline Phosphatase 110 (46-116) U/L Total Protein 5.9 L (6.4-8.2) g/dL Albumin 3.2 L (3.4-5.0) g/dL Globulin 2.7 (2.3-3.5) g/dL Albumin/Globulin Ratio 1.2 (1.2-2.2) Urine Color (YELLOW) Urine Appearance (CLEAR) Urine pH (5.0-8.0) Ur Specific [place] (1.008-1.030) Urine Protein (NEGATIVE) mg/dL Urine Glucose (UA) (NEGATIVE) mg/dL Urine Ketones (NEGATIVE) mg/dL Urine Occult Blood (NEGATIVE) Urine Nitrite (NEGATIVE) Urine Bilirubin (NEGATIVE) Urine Urobilinogen (0.2-1.0) EU/dL Ur Leukocyte Esterase (NEGATIVE) Urine RBC (0-5) Urine WBC (0-5) Ur Epithelial Cells Amorphous Sediment Urine Bacteria Urine Mucus Influenza Type A RNA (NEGATIVE) RSV RNA (INAAT) (NEGATIVE) Influenza Type B RNA (NEGATIVE) SARS-CoV-2 RNA (TAVO) (NEGATIVE) Blood Type Gel Antibody Screen Crossmatch 05/25/21 05/25/21 05/25/21 Range/Units 17:10 17:10 18:09 WBC (4.5-11.0) K/uL RBC (3.30-5.50) M/uL Hgb (12.0-15.0) g/dL Hct (36.0-48.0) % MCV (80-98) fL MCH (27-31) pg MCHC (32-36) % Plt Count (150-400) K/uL Neut % (Auto) (36-66) % Lymph % (Auto) (24-44) % [place] % (Auto) (2-6) % Eos % (Auto) (2-4) % Baso % (Auto) (0-1) % PT (9.2-10.6) sec INR APTT (21.4-31.8) sec Sodium (140-148) mmol/L Potassium (3.6-5.2) mmol/L Chloride (100-108) mmol/L Carbon Dioxide (21-32) mmol/L Anion Gap (5.0-14.0) mmol/L BUN (7-18) mg/dL Creatinine (0.6-1.0) mg/dL Est Cr Clr Drug Dosing mL/min Estimated GFR (MDRD) (>60) Glucose (74-106) mg/dL Lactic Acid 2.8 H (0.4-2.0) mmol/L Calcium (8.5-10.1) mg/dL Total Bilirubin (0.2-1.0) mg/dL AST (15-37) U/L ALT (12-78) U/L Alkaline Phosphatase (46-116) U/L Total Protein (6.4-8.2) g/dL Albumin (3.4-5.0) g/dL Globulin (2.3-3.5) g/dL Albumin/Globulin Ratio (1.2-2.2) Urine Color (YELLOW) Urine Appearance (CLEAR) Urine pH (5.0-8.0) Ur Specific [place] (1.008-1.030) Urine Protein (NEGATIVE) mg/dL Urine Glucose (UA) (NEGATIVE) mg/dL Urine Ketones (NEGATIVE) mg/dL Urine Occult Blood (NEGATIVE) Urine Nitrite (NEGATIVE) Urine Bilirubin (NEGATIVE) Urine Urobilinogen (0.2-1.0) EU/dL Ur Leukocyte Esterase (NEGATIVE) Urine RBC (0-5) Urine WBC (0-5) Ur Epithelial Cells Amorphous Sediment Urine Bacteria Urine Mucus Influenza Type A RNA Negative (NEGATIVE) RSV RNA (INAAT) Negative (NEGATIVE) Influenza Type B RNA Negative (NEGATIVE) SARS-CoV-2 RNA (TAVO) Negative (NEGATIVE) Blood Type O NEGATIVE Gel Antibody Screen Negative Crossmatch See Detail 05/25/21 05/25/21 05/26/21 Range/Units 22:00 22:07 00:42 WBC (4.5-11.0) K/uL RBC (3.30-5.50) M/uL Hgb 8.2 L (12.0-15.0) g/dL Hct (36.0-48.0) % MCV (80-98) fL MCH (27-31) pg MCHC (32-36) % Plt Count (150-400) K/uL Neut % (Auto) (36-66) % Lymph % (Auto) (24-44) % [place] % (Auto) (2-6) % Eos % (Auto) (2-4) % Baso % (Auto) (0-1) % PT (9.2-10.6) sec INR APTT (21.4-31.8) sec Sodium (140-148) mmol/L Potassium (3.6-5.2) mmol/L Chloride (100-108) mmol/L Carbon Dioxide (21-32) mmol/L Anion Gap (5.0-14.0) mmol/L BUN (7-18) mg/dL Creatinine (0.6-1.0) mg/dL Est Cr Clr Drug Dosing mL/min Estimated GFR (MDRD) (>60) Glucose (74-106) mg/dL Lactic Acid 1.8 (0.4-2.0) mmol/L Calcium (8.5-10.1) mg/dL Total Bilirubin (0.2-1.0) mg/dL AST (15-37) U/L ALT (12-78) U/L Alkaline Phosphatase (46-116) U/L Total Protein (6.4-8.2) g/dL Albumin (3.4-5.0) g/dL Globulin (2.3-3.5) g/dL Albumin/Globulin Ratio (1.2-2.2) Urine Color Yellow (YELLOW) Urine Appearance Clear (CLEAR) Urine pH 5.0 (5.0-8.0) Ur Specific [place] 1.015 (1.008-1.030) Urine Protein Negative (NEGATIVE) mg/dL Urine Glucose (UA) Negative (NEGATIVE) mg/dL Urine Ketones Negative (NEGATIVE) mg/dL Urine Occult Blood Moderate H (NEGATIVE) Urine Nitrite Negative (NEGATIVE) Urine Bilirubin Negative (NEGATIVE) Urine Urobilinogen 0.2 (0.2-1.0) EU/dL Ur Leukocyte Esterase Trace H (NEGATIVE) Urine RBC 0-5 (0-5) Urine WBC 0-5 (0-5) Ur Epithelial Cells Few Amorphous Sediment Few Urine Bacteria Few Urine Mucus Not seen Influenza Type A RNA (NEGATIVE) RSV RNA (INAAT) (NEGATIVE) Influenza Type B RNA (NEGATIVE) SARS-CoV-2 RNA (TAVO) (NEGATIVE) Blood Type Gel Antibody Screen Crossmatch 05/26/21 05/26/21 05/26/21 Range/Units 04:10 04:10 04:10 WBC 5.2 (4.5-11.0) K/uL RBC 2.45 L (3.30-5.50) M/uL Hgb 7.8 L (12.0-15.0) g/dL Hct 24.1 L (36.0-48.0) % MCV 98 (80-98) fL MCH 32 H (27-31) pg MCHC 32 (32-36) % Plt Count 221 (150-400) K/uL Neut % (Auto) (36-66) % Lymph % (Auto) (24-44) % [place] % (Auto) (2-6) % Eos % (Auto) (2-4) % Baso % (Auto) (0-1) % PT 12.2 H (9.2-10.6) sec INR 1.2 D APTT (21.4-31.8) sec Sodium 146 (140-148) mmol/L Potassium 3.9 (3.6-5.2) mmol/L Chloride 110 H (100-108) mmol/L Carbon Dioxide 26 (21-32) mmol/L Anion Gap 13.9 (5.0-14.0) mmol/L BUN 52 H (7-18) mg/dL Creatinine 0.7 (0.6-1.0) mg/dL Est Cr Clr Drug Dosing 46.27 mL/min Estimated GFR (MDRD) > 60 (>60) Glucose 104 (74-106) mg/dL Lactic Acid (0.4-2.0) mmol/L Calcium 8.0 L (8.5-10.1) mg/dL Total Bilirubin (0.2-1.0) mg/dL AST (15-37) U/L ALT (12-78) U/L Alkaline Phosphatase (46-116) U/L Total Protein (6.4-8.2) g/dL Albumin (3.4-5.0) g/dL Globulin (2.3-3.5) g/dL Albumin/Globulin Ratio (1.2-2.2) Urine Color (YELLOW) Urine Appearance (CLEAR) Urine pH (5.0-8.0) Ur Specific [place] (1.008-1.030) Urine Protein (NEGATIVE) mg/dL Urine Glucose (UA) (NEGATIVE) mg/dL Urine Ketones (NEGATIVE) mg/dL Urine Occult Blood (NEGATIVE) Urine Nitrite (NEGATIVE) Urine Bilirubin (NEGATIVE) Urine Urobilinogen (0.2-1.0) EU/dL Ur Leukocyte Esterase (NEGATIVE) Urine RBC (0-5) Urine WBC (0-5) Ur Epithelial Cells Amorphous Sediment Urine Bacteria Urine Mucus Influenza Type A RNA (NEGATIVE) RSV RNA (INAAT) (NEGATIVE) Influenza Type B RNA (NEGATIVE) SARS-CoV-2 RNA (TAVO) (NEGATIVE) Blood Type Gel Antibody Screen Crossmatch Tre Results Last 24 Hours: Microbiology 05/25/21 17:05 Stool Occult Blood (TRE) - Final Stool / Feces Med Orders - Current: Current Medications Acetaminophen (Acetaminophen 325 Mg Tab) 650 mg PO Q4H PRN PRN Reason: Pain (Mild 1-3)/fever Albuterol (Albuterol 8 Gm Inhaler) 0 gm INH Q4H PRN PRN Reason: Dyspnea Albuterol (Albuterol 0.083% 2.5 Mg/3 Ml Neb Soln) 2.5 mg NEB Q4H PRN PRN Reason: Shortness Of Breath/wheezing Sodium Chloride (Normal Saline) 1,000 mls @ 100 mls/hr IV ASDIRECTED [facility] Last Admin: 05/26/21 07:29 Dose: 100 mls/hr Documented by: Lorazepam (Lorazepam 2 Mg/Ml Sdv) 0.5 mg IVPUSH Q4H PRN PRN Reason: Nausea/Vomiting Magnesium Hydroxide (Magnesium Hydroxide 400 Mg/5 Ml Susp 30 Ml Cup) 30 ml PO Q12H PRN PRN Reason: Constipation Melatonin (Melatonin 3 Mg Tab) 9 mg PO BEDTIME PRN PRN Reason: Sleep Metoprolol Tartrate (Metoprolol Tartrate 25 Mg Tab) 25 mg PO BID [facility] Last Admin: 05/26/21 08:11 Dose: Not Given Documented by: Mometasone Furoate/Formoterol Fumar (Formoterol/Mometasone 200-5 Mcg 8.8 Gm Inhaler) 0 puff IH BIDRT [facility] Ondansetron HCl (Ondansetron 4 Mg/2 Ml Sdv) 4 mg IV Q6H PRN PRN Reason: Nausea/Vomiting Ondansetron HCl (Ondansetron 4 Mg Tab.Dis) 4 mg PO Q6H PRN PRN Reason: Nausea able to take PO Pantoprazole Sodium (Pantoprazole 40 Mg Vial) 40 mg IV Q12H [facility] Stop: 05/26/21 23:00 Last Admin: 05/26/21 06:27 Dose: 40 mg Documented by: Senna/Docusate Sodium (Docusate Sodium/Sennosides 50-8.6 Mg Tab) 1 tab PO BID PRN PRN Reason: Constipation Sodium Chloride (Sodium Chloride 0.9% 10 Ml Syringe) 10 ml FLUSH ASDIRECTED PRN PRN Reason: Keep Vein Open Last Admin: 05/25/21 17:17 Dose: 10 ml Documented by: Discontinued Medications Phytonadione 10 mg/ Sodium (Chloride) 51 mls @ 100 mls/hr IV [facility] Stop: 05/25/21 18:18 Last Admin: 05/25/21 17:57 Dose: 100 mls/hr Documented by: Sodium Chloride (Normal Saline) 1,000 mls @ 500 mls/hr IV ASDIRECTED [facility] Stop: 05/25/21 20:01 Last Admin: 05/25/21 19:53 Dose: 500 mls/hr Documented by: Sodium Chloride (Normal Saline) 1,000 mls @ 999 mls/hr IV ASDIRECTED [facility] Stop: 05/26/21 10:16 Lidocaine (Lidocaine 2% 5 Ml Sdv) Confirm Administered Dose 5 ml .ROUTE .STK-MED ONE Stop: 05/26/21 06:40 Metoprolol Tartrate (Metoprolol Tartrate 50 Mg Tab) 50 mg PO BID [facility] Metoprolol Tartrate (Metoprolol Tartrate 50 Mg Tab) 25 mg PO BID [facility] Last Admin: 05/25/21 20:32 Dose: 25 mg Documented by: Pantoprazole Sodium (Pantoprazole 40 Mg Vial) 40 mg IVPUSH ONETIME ONE Stop: 05/25/21 18:05 Last Admin: 05/25/21 18:15 Dose: 40 mg Documented by: Propofol (Propofol 200 Mg/20 Ml Sdv) Confirm Administered Dose 200 mg .ROUTE .STK-MED ONE Stop: 05/26/21 06:40 - Exam Quality Assessment: No: Supplemental Oxygen General: Alert, Oriented, Cooperative, No Acute Distress Lungs: Clear to Auscultation, Normal Respiratory Effort Cardiovascular: Regular Rate, Irregular Rhythm GI/Abdominal Exam: Soft, No Distention Extremities: No Pedal Edema. No: Increased Warmth Skin: Warm, Dry Psy/Mental Status: Alert, Normal Affect - Patient Data Lab Results Last 24 hrs: Laboratory Results - last 24 hr 05/25/21 05/25/21 05/25/21 Range/Units 17:10 17:10 17:10 WBC 8.3 (4.5-11.0) K/uL RBC 3.03 L (3.30-5.50) M/uL Hgb 9.7 L D (12.0-15.0) g/dL Hct 30.0 L (36.0-48.0) % MCV 99 H (80-98) fL MCH 32 H (27-31) pg MCHC 32 (32-36) % Plt Count 252 (150-400) K/uL Neut % (Auto) 83.5 H (36-66) % Lymph % (Auto) 12.7 L (24-44) % [place] % (Auto) 3.7 (2-6) % Eos % (Auto) 0.0 L (2-4) % Baso % (Auto) 0.1 (0-1) % PT 31.4 H (9.2-10.6) sec INR 3.2 APTT 30.3 (21.4-31.8) sec Sodium 143 (140-148) mmol/L Potassium 5.0 (3.6-5.2) mmol/L Chloride 106 (100-108) mmol/L Carbon Dioxide 26 (21-32) mmol/L Anion Gap 11.2 (5.0-14.0) mmol/L BUN 67 H D (7-18) mg/dL Creatinine 0.7 (0.6-1.0) mg/dL Est Cr Clr Drug Dosing 47.51 mL/min Estimated GFR (MDRD) > 60 (>60) Glucose 135 H (74-106) mg/dL Lactic Acid (0.4-2.0) mmol/L Calcium 8.7 (8.5-10.1) mg/dL Total Bilirubin 0.9 (0.2-1.0) mg/dL AST 19 (15-37) U/L ALT 31 (12-78) U/L Alkaline Phosphatase 110 (46-116) U/L Total Protein 5.9 L (6.4-8.2) g/dL Albumin 3.2 L (3.4-5.0) g/dL Globulin 2.7 (2.3-3.5) g/dL Albumin/Globulin Ratio 1.2 (1.2-2.2) Urine Color (YELLOW) Urine Appearance (CLEAR) Urine pH (5.0-8.0) Ur Specific [place] (1.008-1.030) Urine Protein (NEGATIVE) mg/dL Urine Glucose (UA) (NEGATIVE) mg/dL Urine Ketones (NEGATIVE) mg/dL Urine Occult Blood (NEGATIVE) Urine Nitrite (NEGATIVE) Urine Bilirubin (NEGATIVE) Urine Urobilinogen (0.2-1.0) EU/dL Ur Leukocyte Esterase (NEGATIVE) Urine RBC (0-5) Urine WBC (0-5) Ur Epithelial Cells Amorphous Sediment Urine Bacteria Urine Mucus Influenza Type A RNA (NEGATIVE) RSV RNA (INAAT) (NEGATIVE) Influenza Type B RNA (NEGATIVE) SARS-CoV-2 RNA (TAVO) (NEGATIVE) Blood Type Gel Antibody Screen Crossmatch 05/25/21 05/25/21 05/25/21 Range/Units 17:10 17:10 18:09 WBC (4.5-11.0) K/uL RBC (3.30-5.50) M/uL Hgb (12.0-15.0) g/dL Hct (36.0-48.0) % MCV (80-98) fL MCH (27-31) pg MCHC (32-36) % Plt Count (150-400) K/uL Neut % (Auto) (36-66) % Lymph % (Auto) (24-44) % [place] % (Auto) (2-6) % Eos % (Auto) (2-4) % Baso % (Auto) (0-1) % PT (9.2-10.6) sec INR APTT (21.4-31.8) sec Sodium (140-148) mmol/L Potassium (3.6-5.2) mmol/L Chloride (100-108) mmol/L Carbon Dioxide (21-32) mmol/L Anion Gap (5.0-14.0) mmol/L BUN (7-18) mg/dL Creatinine (0.6-1.0) mg/dL Est Cr Clr Drug Dosing mL/min Estimated GFR (MDRD) (>60) Glucose (74-106) mg/dL Lactic Acid 2.8 H (0.4-2.0) mmol/L Calcium (8.5-10.1) mg/dL Total Bilirubin (0.2-1.0) mg/dL AST (15-37) U/L ALT (12-78) U/L Alkaline Phosphatase (46-116) U/L Total Protein (6.4-8.2) g/dL Albumin (3.4-5.0) g/dL Globulin (2.3-3.5) g/dL Albumin/Globulin Ratio (1.2-2.2) Urine Color (YELLOW) Urine Appearance (CLEAR) Urine pH (5.0-8.0) Ur Specific [place] (1.008-1.030) Urine Protein (NEGATIVE) mg/dL Urine Glucose (UA) (NEGATIVE) mg/dL Urine Ketones (NEGATIVE) mg/dL Urine Occult Blood (NEGATIVE) Urine Nitrite (NEGATIVE) Urine Bilirubin (NEGATIVE) Urine Urobilinogen (0.2-1.0) EU/dL Ur Leukocyte Esterase (NEGATIVE) Urine RBC (0-5) Urine WBC (0-5) Ur Epithelial Cells Amorphous Sediment Urine Bacteria Urine Mucus Influenza Type A RNA Negative (NEGATIVE) RSV RNA (INAAT) Negative (NEGATIVE) Influenza Type B RNA Negative (NEGATIVE) SARS-CoV-2 RNA (TAVO) Negative (NEGATIVE) Blood Type O NEGATIVE Gel Antibody Screen Negative Crossmatch See Detail 05/25/21 05/25/21 05/26/21 Range/Units 22:00 22:07 00:42 WBC (4.5-11.0) K/uL RBC (3.30-5.50) M/uL Hgb 8.2 L (12.0-15.0) g/dL Hct (36.0-48.0) % MCV (80-98) fL MCH (27-31) pg MCHC (32-36) % Plt Count (150-400) K/uL Neut % (Auto) (36-66) % Lymph % (Auto) (24-44) % [place] % (Auto) (2-6) % Eos % (Auto) (2-4) % Baso % (Auto) (0-1) % PT (9.2-10.6) sec INR APTT (21.4-31.8) sec Sodium (140-148) mmol/L Potassium (3.6-5.2) mmol/L Chloride (100-108) mmol/L Carbon Dioxide (21-32) mmol/L Anion Gap (5.0-14.0) mmol/L BUN (7-18) mg/dL Creatinine (0.6-1.0) mg/dL Est Cr Clr Drug Dosing mL/min Estimated GFR (MDRD) (>60) Glucose (74-106) mg/dL Lactic Acid 1.8 (0.4-2.0) mmol/L Calcium (8.5-10.1) mg/dL Total Bilirubin (0.2-1.0) mg/dL AST (15-37) U/L ALT (12-78) U/L Alkaline Phosphatase (46-116) U/L Total Protein (6.4-8.2) g/dL Albumin (3.4-5.0) g/dL Globulin (2.3-3.5) g/dL Albumin/Globulin Ratio (1.2-2.2) Urine Color Yellow (YELLOW) Urine Appearance Clear (CLEAR) Urine pH 5.0 (5.0-8.0) Ur Specific [place] 1.015 (1.008-1.030) Urine Protein Negative (NEGATIVE) mg/dL Urine Glucose (UA) Negative (NEGATIVE) mg/dL Urine Ketones Negative (NEGATIVE) mg/dL Urine Occult Blood Moderate H (NEGATIVE) Urine Nitrite Negative (NEGATIVE) Urine Bilirubin Negative (NEGATIVE) Urine Urobilinogen 0.2 (0.2-1.0) EU/dL Ur Leukocyte Esterase Trace H (NEGATIVE) Urine RBC 0-5 (0-5) Urine WBC 0-5 (0-5) Ur Epithelial Cells Few Amorphous Sediment Few Urine Bacteria Few Urine Mucus Not seen Influenza Type A RNA (NEGATIVE) RSV RNA (INAAT) (NEGATIVE) Influenza Type B RNA (NEGATIVE) SARS-CoV-2 RNA (TAVO) (NEGATIVE) Blood Type Gel Antibody Screen Crossmatch 05/26/21 05/26/21 05/26/21 Range/Units 04:10 04:10 04:10 WBC 5.2 (4.5-11.0) K/uL RBC 2.45 L (3.30-5.50) M/uL Hgb 7.8 L (12.0-15.0) g/dL Hct 24.1 L (36.0-48.0) % MCV 98 (80-98) fL MCH 32 H (27-31) pg MCHC 32 (32-36) % Plt Count 221 (150-400) K/uL Neut % (Auto) (36-66) % Lymph % (Auto) (24-44) % [place] % (Auto) (2-6) % Eos % (Auto) (2-4) % Baso % (Auto) (0-1) % PT 12.2 H (9.2-10.6) sec INR 1.2 D APTT (21.4-31.8) sec Sodium 146 (140-148) mmol/L Potassium 3.9 (3.6-5.2) mmol/L Chloride 110 H (100-108) mmol/L Carbon Dioxide 26 (21-32) mmol/L Anion Gap 13.9 (5.0-14.0) mmol/L BUN 52 H (7-18) mg/dL Creatinine 0.7 (0.6-1.0) mg/dL Est Cr Clr Drug Dosing 46.27 mL/min Estimated GFR (MDRD) > 60 (>60) Glucose 104 (74-106) mg/dL Lactic Acid (0.4-2.0) mmol/L Calcium 8.0 L (8.5-10.1) mg/dL Total Bilirubin (0.2-1.0) mg/dL AST (15-37) U/L ALT (12-78) U/L Alkaline Phosphatase (46-116) U/L Total Protein (6.4-8.2) g/dL Albumin (3.4-5.0) g/dL Globulin (2.3-3.5) g/dL Albumin/Globulin Ratio (1.2-2.2) Urine Color (YELLOW) Urine Appearance (CLEAR) Urine pH (5.0-8.0) Ur Specific [place] (1.008-1.030) Urine Protein (NEGATIVE) mg/dL Urine Glucose (UA) (NEGATIVE) mg/dL Urine Ketones (NEGATIVE) mg/dL Urine Occult Blood (NEGATIVE) Urine Nitrite (NEGATIVE) Urine Bilirubin (NEGATIVE) Urine Urobilinogen (0.2-1.0) EU/dL Ur Leukocyte Esterase (NEGATIVE) Urine RBC (0-5) Urine WBC (0-5) Ur Epithelial Cells Amorphous Sediment Urine Bacteria Urine Mucus Influenza Type A RNA (NEGATIVE) RSV RNA (INAAT) (NEGATIVE) Influenza Type B RNA (NEGATIVE) SARS-CoV-2 RNA (TAVO) (NEGATIVE) Blood Type Gel Antibody Screen Crossmatch Result Diagrams: 05/26/21 04:10 05/26/21 04:10 Tre Results Last 24 hrs: Microbiology 05/25/21 17:05 Stool Occult Blood (TRE) - Final Stool / Feces Sepsis Event Note - Evaluation Sepsis Screening Result: No Definite Risk - Focused Exam Vital Signs: Vital Signs Temp Pulse Pulse Resp BP BP Pulse Ox 05/26/21 09:30 20 95/69 90 L 05/26/21 09:10 97 20 89/50 L 93 L 05/26/21 09:02 127 H 22 H 99/54 L 93 L 05/26/21 08:30 36.6 C 76 12 93/51 L 98 05/26/21 08:25 71 12 88/50 L 98 05/26/21 08:20 73 12 91/47 L 100 05/26/21 08:15 36.6 C 77 12 82/43 L 100 05/26/21 08:10 73 12 82/42 L 100 05/26/21 08:07 77 89/40 L 05/26/21 08:05 78 12 77/41 L 100 05/26/21 08:00 36.7 C 76 12 77/42 L 100 05/26/21 07:18 94 95/49 L 05/26/21 06:55 36.6 C 84 18 95/49 L 95 05/26/21 04:00 37.9 C 106 H 20 90/50 L 96 05/26/21 00:44 37.7 C 107 H 20 94/49 L 96 - Problem List & Annotations (1) Acute upper gastrointestinal hemorrhage SNOMED Code(s): 29242882 Code(s): K92.2 - GASTROINTESTINAL HEMORRHAGE, UNSPECIFIED Status: Acute Current Visit: Yes (2) Anemia due to blood loss, acute SNOMED Code(s): 457084198 Code(s): D62 - ACUTE POSTHEMORRHAGIC ANEMIA Status: Acute Current Visit: Yes (3) Chronic atrial fibrillation SNOMED Code(s): 801321600 Code(s): I48.20 - CHRONIC ATRIAL FIBRILLATION, UNSPECIFIED Status: Chronic Current Visit: Yes - Problem List Review Problem List Initiated/Reviewed/Updated: Yes - My Orders Last 24 Hours: My Active Orders 05/25/21 18:50 Resuscitation Status Routine 05/25/21 19:00 Sodium Chloride 0.9% [Normal Saline] 1,000 ml IV ASDIRECTED 05/25/21 19:26 Acetaminophen [TylenoL] 650 mg PO Q4H PRN Albuterol [Proventil Neb Soln] 2.5 mg NEB Q4H PRN Albuterol [Ventolin HFA] 0 gm INH Q4H PRN Docusate Sodium/Sennosides [Senna Plus] 1 tab PO BID PRN LORazepam [Ativan] 0.5 mg IVPUSH Q4H PRN Magnesium Hydroxide [Milk of Magnesia] 30 ml PO Q12H PRN Melatonin 9 mg PO BEDTIME PRN Ondansetron [Zofran ODT] 4 mg PO Q6H PRN Ondansetron [Zofran] 4 mg IV Q6H PRN 05/25/21 19:26 Patient Status [ADT] Routine Antiembolic Devices [RC] .Routine Intake and Output [RC] QSHIFT Notify Provider Consults [RC] ASDIRECTED Notify Provider Vital Signs [RC] ASDIRECTED RT Aerosol Therapy [RC] ASDIRECTED RT Post Treatment Assessment [RC] Click to Edit VTE/DVT Education [RC] Per Unit Routine Vital Signs [RC] Q4H Consult to Physician [CONS] Routine Sequential Compression Device [OM.PC] Routine VTE Pharmacological Contraindications [AST] Routine 05/26/21 06:00 Pantoprazole [ProTONIX IV] 40 mg IV Q12H 05/26/21 06:53 Transfuse Red Blood Cells [COMM] Routine 05/26/21 09:00 Metoprolol Tartrate [Lopressor] 25 mg PO BID Mometasone/Formoterol [Dulera 200-5 MCG] 0 puff IH BIDRT 05/26/21 09:03 RED BLOOD CELLS LP [BBK] Routine 05/26/21 09:49 Discontinue Telemetry Monitoring [Cardiac Monitoring Discontinue] [RC] Click to Edit Up With Assistance [RC] ASDIRECTED 05/26/21 15:00 HGB [HEMOGLOBIN] [HEME] Routine 05/27/21 05:00 BASIC METABOLIC PANEL,BMP [CHEM] Timed CBC W/O DIFF,HEMOGRAM [HEME] Timed (1) 05/27/21 07:30 Pantoprazole [ProTONIX] 40 mg PO BIDAC - Plan Plan:: ASSESSMENT AND PLAN - Upper gastrointestinal hemorrhage-complicated by anemia due to blood loss. EGD revealed gastric ulcer that was likely the bleeding source. CLOtest is pending. -PPI every 12 hours today, transition to oral tomorrow -Continue IV fluids -Repeat hemoglobin this afternoon and again in the morning -Follow-up CLOtest Dysphagia-longstanding and progressive. Mostly solids but occasionally liquids. No abnormalities seen on EGD. Chronic atrial fibrillation-chronically anticoagulated. She did receive vitamin K in the emergency room and INR is normal. -Continue metoprolol but reduce dose to 25 mg -Hold warfarin Maintenance issues - -DVT prophylaxis-mechanical with active hemorrhage -GI prophylaxis-PPI as above -Nutrition-full liquids Disposition -I anticipate discharge home after the hospital stay Primary care physician -CONCETTA Powers M.D.
[2021-05-26] MEDS: Acetaminophen 325 MG Tab PO PRN ×2 (10:26→20:26)
[2021-05-26] MEDS: Formoterol/Mometasone 200-5 MCG 8.8 GM Inhaler IH SCH ×2 (10:31→20:27)
[2021-05-26] MEDS ORDERED: Calcium Carbonate 500 MG Tab.Chew PO PRN (14:11)
[2021-05-27] MEDS: Formoterol/Mometasone 200-5 MCG 8.8 GM Inhaler IH SCH ×2 (07:06→21:01)
[2021-05-27] MEDS: Pantoprazole 40 MG Tab.CR PO SCH ×2 (07:40→16:17)
[2021-05-27] MEDS: Metoprolol Tartrate 25 MG Tab PO SCH ×2 (10:02→21:01)
--- NOTE | 2021-05-27 15:38 | PCM.PN ---
- General Info Date of Service: 05/27/21 Subjective Update: Ms. Steele has remained fairly stable since yesterday. There has been a modest drop in hemoglobin this morning from yesterday afternoon. She did have one melenic appearing stool this morning, no other evidence of active bleeding. Blood pressure has remained borderline low, she is asymptomatic with this. Functional Status: Reports: Tolerating Diet, Ambulating, Urinating - Review of Systems General: Reports: Weakness, Fatigue. Denies: Fever, Chills Pulmonary: Reports: No Symptoms Cardiovascular: Reports: No Symptoms Gastrointestinal: Reports: Melena. Denies: Abdominal Pain, Difficulty Swallowing, Hematochezia, Nausea, Vomiting Genitourinary: Reports: No Symptoms - Patient Data Vitals - Most Recent: Last Vital Signs Temp 99 F 05/27/21 15:03 Pulse 81 05/27/21 15:03 Resp 18 05/27/21 15:03 BP 98/51 L 05/27/21 15:03 Pulse Ox 97 05/27/21 15:03 Weight - Most Recent: 112 lb I&O - Last 24 Hours: Intake & Output 05/27/21 05/27/21 05/27/21 06:59 14:59 22:59 Intake Total 750 Output Total 300 Balance 450 Lab Results Last 24 Hours: Laboratory Results - last 24 hr 05/26/21 05/27/21 05/27/21 Range/Units 16:07 05:35 05:35 WBC 6.0 (4.5-11.0) K/uL RBC 2.57 L (3.30-5.50) M/uL Hgb 8.4 L 7.9 L (12.0-15.0) g/dL Hct 24.9 L (36.0-48.0) % MCV 97 (80-98) fL MCH 31 (27-31) pg MCHC 32 (32-36) % Plt Count 177 (150-400) K/uL Sodium 147 (140-148) mmol/L Potassium 3.6 (3.6-5.2) mmol/L Chloride 114 H (100-108) mmol/L Carbon Dioxide 26 (21-32) mmol/L Anion Gap 10.6 (5.0-14.0) mmol/L BUN 28 H (7-18) mg/dL Creatinine 0.6 (0.6-1.0) mg/dL Est Cr Clr Drug Dosing 53.98 mL/min Estimated GFR (MDRD) > 60 (>60) Glucose 94 (74-106) mg/dL Calcium 7.8 L (8.5-10.1) mg/dL Tre Results Last 24 Hours: Microbiology 05/26/21 09:18 CLOtest - Final Stomach NEGATIVE CLOTEST REFERENCE RANGE: NEGATIVE Med Orders - Current: Current Medications Acetaminophen (Acetaminophen 325 Mg Tab) 650 mg PO Q4H PRN PRN Reason: Pain (Mild 1-3)/fever Last Admin: 05/26/21 20:26 Dose: 650 mg Documented by: Albuterol (Albuterol 8 Gm Inhaler) 0 gm INH Q4H PRN PRN Reason: Dyspnea Albuterol (Albuterol 0.083% 2.5 Mg/3 Ml Neb Soln) 2.5 mg NEB Q4H PRN PRN Reason: Shortness Of Breath/wheezing Calcium Carbonate/Glycine (Calcium Carbonate 500 Mg Tab.Chew) 1,000 mg PO Q2H PRN PRN Reason: Indigestion Last Admin: 05/26/21 14:38 Dose: 1,000 mg Documented by: Lorazepam (Lorazepam 2 Mg/Ml Sdv) 0.5 mg IVPUSH Q4H PRN PRN Reason: Nausea/Vomiting Magnesium Hydroxide (Magnesium Hydroxide 400 Mg/5 Ml Susp 30 Ml Cup) 30 ml PO Q12H PRN PRN Reason: Constipation Melatonin (Melatonin 3 Mg Tab) 9 mg PO BEDTIME PRN PRN Reason: Sleep Metoprolol Tartrate (Metoprolol Tartrate 25 Mg Tab) 25 mg PO BID [facility] Last Admin: 05/27/21 10:02 Dose: 25 mg Documented by: Mometasone Furoate/Formoterol Fumar (Formoterol/Mometasone 200-5 Mcg 8.8 Gm Inhaler) 0 puff IH BIDRT [facility] Last Admin: 05/27/21 07:06 Dose: 2 puff Documented by: Ondansetron HCl (Ondansetron 4 Mg/2 Ml Sdv) 4 mg IV Q6H PRN PRN Reason: Nausea/Vomiting Ondansetron HCl (Ondansetron 4 Mg Tab.Dis) 4 mg PO Q6H PRN PRN Reason: Nausea able to take PO Pantoprazole Sodium (Pantoprazole 40 Mg Tab.Cr) 40 mg PO BIDAC [facility] Last Admin: 05/27/21 07:40 Dose: 40 mg Documented by: Senna/Docusate Sodium (Docusate Sodium/Sennosides 50-8.6 Mg Tab) 1 tab PO BID PRN PRN Reason: Constipation Sodium Chloride (Sodium Chloride 0.9% 10 Ml Syringe) 10 ml FLUSH ASDIRECTED PRN PRN Reason: Keep Vein Open Last Admin: 05/25/21 17:17 Dose: 10 ml Documented by: Discontinued Medications Phytonadione 10 mg/ Sodium (Chloride) 51 mls @ 100 mls/hr IV NOW ONE Stop: 05/25/21 18:18 Last Admin: 05/25/21 17:57 Dose: 100 mls/hr Documented by: Sodium Chloride (Normal Saline) 1,000 mls @ 100 mls/hr IV ASDIRECTED [facility] Last Admin: 05/26/21 07:29 Dose: 100 mls/hr Documented by: Sodium Chloride (Normal Saline) 1,000 mls @ 500 mls/hr IV ASDIRECTED [facility] Stop: 05/25/21 20:01 Last Admin: 05/25/21 19:53 Dose: 500 mls/hr Documented by: Sodium Chloride (Normal Saline) 1,000 mls @ 999 mls/hr IV ASDIRECTED [facility] Stop: 05/26/21 10:16 Lidocaine (Lidocaine 2% 5 Ml Sdv) Confirm Administered Dose 5 ml .ROUTE .STK-MED ONE Stop: 05/26/21 06:40 Metoprolol Tartrate (Metoprolol Tartrate 50 Mg Tab) 50 mg PO BID [facility] Metoprolol Tartrate (Metoprolol Tartrate 50 Mg Tab) 25 mg PO BID [facility] Last Admin: 05/25/21 20:32 Dose: 25 mg Documented by: Pantoprazole Sodium (Pantoprazole 40 Mg Vial) 40 mg IVPUSH ONETIME ONE Stop: 05/25/21 18:05 Last Admin: 05/25/21 18:15 Dose: 40 mg Documented by: Pantoprazole Sodium (Pantoprazole 40 Mg Vial) 40 mg IV Q12H [facility] Stop: 05/26/21 23:00 Last Admin: 05/26/21 18:29 Dose: 40 mg Documented by: Propofol (Propofol 200 Mg/20 Ml Sdv) Confirm Administered Dose 200 mg .ROUTE .STK-MED ONE Stop: 05/26/21 06:40 - Exam Quality Assessment: DVT Prophylaxis General: Alert, Oriented, Cooperative, No Acute Distress Lungs: Clear to Auscultation, Normal Respiratory Effort Cardiovascular: Regular Rate, No Murmurs, Irregular Rhythm GI/Abdominal Exam: Soft, Non-Tender, No Organomegaly, No Distention Extremities: Non-Tender, No Pedal Edema - Patient Data Lab Results Last 24 hrs: Laboratory Results - last 24 hr 05/26/21 05/27/21 05/27/21 Range/Units 16:07 05:35 05:35 WBC 6.0 (4.5-11.0) K/uL RBC 2.57 L (3.30-5.50) M/uL Hgb 8.4 L 7.9 L (12.0-15.0) g/dL Hct 24.9 L (36.0-48.0) % MCV 97 (80-98) fL MCH 31 (27-31) pg MCHC 32 (32-36) % Plt Count 177 (150-400) K/uL Sodium 147 (140-148) mmol/L Potassium 3.6 (3.6-5.2) mmol/L Chloride 114 H (100-108) mmol/L Carbon Dioxide 26 (21-32) mmol/L Anion Gap 10.6 (5.0-14.0) mmol/L BUN 28 H (7-18) mg/dL Creatinine 0.6 (0.6-1.0) mg/dL Est Cr Clr Drug Dosing 53.98 mL/min Estimated GFR (MDRD) > 60 (>60) Glucose 94 (74-106) mg/dL Calcium 7.8 L (8.5-10.1) mg/dL Result Diagrams: 05/27/21 05:35 05/27/21 05:35 Tre Results Last 24 hrs: Microbiology 05/26/21 09:18 CLOtest - Final Stomach NEGATIVE CLOTEST REFERENCE RANGE: NEGATIVE Sepsis Event Note - Evaluation Sepsis Screening Result: No Definite Risk - Focused Exam Vital Signs: Vital Signs Temp Pulse Pulse Resp BP BP BP 05/27/21 15:03 99 F 81 18 98/51 L 05/27/21 10:36 98.3 F 57 L 18 97/45 L 05/27/21 10:02 92 127/70 05/27/21 09:32 92 18 104/52 L 05/27/21 07:25 97.9 F 95 16 127/70 05/27/21 07:01 99 F 109 H 18 97/50 L Pulse Ox 05/27/21 15:03 97 05/27/21 10:36 98 05/27/21 10:02 05/27/21 09:32 95 05/27/21 07:25 98 05/27/21 07:01 96 - Problem List Review Problem List Initiated/Reviewed/Updated: Yes - My Orders Last 24 Hours: My Active Orders 05/27/21 15:29 HGB [HEMOGLOBIN] [HEME] Stat 05/28/21 05:00 BASIC METABOLIC PANEL,BMP [CHEM] Timed CBC WITH AUTO DIFF [HEME] Timed - Plan Plan:: ASSESSMENT AND PLAN Upper gastrointestinal hemorrhage-complicated by anemia due to blood loss. EGD revealed gastric ulcer that was likely the bleeding source. CLOtest is pending. -PPI every 12 hours today -Saline lock IV -Repeat hemoglobin this afternoon and again in the morning -Follow-up CLOtest Dysphagia-longstanding and progressive. Mostly solids but occasionally liquids. No abnormalities seen on EGD. Chronic atrial fibrillation-chronically anticoagulated. She did receive vitamin K in the emergency room and INR is normal. -Continue metoprolol but reduce dose to 25 mg -Hold warfarin Maintenance issues - -DVT prophylaxis-mechanical with active hemorrhage -GI prophylaxis-PPI as above -Nutrition-full liquids Disposition -I anticipate discharge home after the hospital stay Primary care physician -Jim Moore NP
[2021-05-28] MEDS: Formoterol/Mometasone 200-5 MCG 8.8 GM Inhaler IH SCH ×2 (07:13→21:50)
[2021-05-28] MEDS: Pantoprazole 40 MG Tab.CR PO SCH ×2 (07:18→16:50)
--- NOTE | 2021-05-28 08:30 | OR ---
DATE OF PROCEDURE: 05/26/2021 SURGEON: Theo Hodge MD PREOPERATIVE DIAGNOSIS: Upper gastrointestinal bleeding. POSTOPERATIVE DIAGNOSES: Upper gastrointestinal bleeding associated with antral gastritis and focal antral ulcer. OPERATIVE PROCEDURE: Esophagogastroduodenoscopy with antral biopsies for CLOtest. ANESTHESIA: IV sedation. INDICATION FOR PROCEDURE: This is an 85-year-old presenting with some black and maroon stools. She is undergoing upper GI endoscopy for diagnostic purposes. Potential risks of the procedure including bleeding and perforation were discussed, and the patient wishes to proceed. DETAILS OF PROCEDURE: The patient was taken to the operating room and placed in a left lateral decubitus position. IV sedation was administered after which the upper GI endoscope was passed orally through the length of the esophagus into the stomach with retroflexion view of the fundus, thereafter through the pyloric channel and into the proximal duodenum. Findings included normal hypopharynx, larynx, upper esophageal sphincter, and esophageal body. The patient had minimal hiatal hernia without inflammation or blood in that area. Within the stomach, there was diffuse antral gastritis and within the sigmoid was a focal antral ulcer measuring around 3 mm. This was fairly deep. Biopsies were bleeding issues. Remainder of the pyloric channel and visualized portions of the duodenum were unremarkable. Biopsies were then obtained from the antrum and sent for CLOtest for H pylori. Minimal bleeding from the biopsy site was seen and the procedure then concluded. The ulcer and gastritis were likely the recent bleeding source. To rule out a malignancy, the patient should have a followup endoscopy in roughly 1 month and to confirm healing of the gastric ulcer. Theo Hodge MD /[id number]
[2021-05-28] MEDS: Metoprolol Tartrate 25 MG Tab PO SCH ×2 (09:24→21:50)
--- NOTE | 2021-05-28 14:22 | PCM.PN ---
- General Info Date of Service: 05/28/21 Subjective Update: Ms. Steele has remained stable since yesterday with no further evidence of active bleeding. Hemoglobin level has varied somewhat on follow-up labs. She denies h ematemesis and melena. Energy level improved and she has been tolerating a full liquid diet. Functional Status: Reports: Tolerating Diet, Ambulating, Urinating - Review of Systems General: Reports: Weakness, Fatigue. Denies: Fever, Chills Pulmonary: Reports: No Symptoms Cardiovascular: Reports: No Symptoms Gastrointestinal: Reports: No Symptoms Genitourinary: Reports: No Symptoms - Patient Data Vitals - Most Recent: Last Vital Signs Temp 97.7 F 05/28/21 11:00 Pulse 74 05/28/21 11:00 Resp 16 05/28/21 11:00 BP 90/46 L 05/28/21 11:00 Pulse Ox 98 05/28/21 11:00 Weight - Most Recent: 112 lb I&O - Last 24 Hours: Intake & Output 05/27/21 05/28/21 05/28/21 22:59 06:59 14:59 Intake Total 550 150 360 Output Total 375 275 500 Balance 175 -125 -140 Lab Results Last 24 Hours: Laboratory Results - last 24 hr 05/27/21 05/28/21 05/28/21 Range/Units 15:29 05:45 05:45 WBC 5.2 (4.5-11.0) K/uL RBC 2.47 L (3.30-5.50) M/uL Hgb 9.4 L 7.9 L (12.0-15.0) g/dL Hct 24.4 L (36.0-48.0) % MCV 99 H (80-98) fL MCH 32 H (27-31) pg MCHC 32 (32-36) % Plt Count 175 (150-400) K/uL Neut % (Auto) 65.1 (36-66) % Lymph % (Auto) 22.0 L (24-44) % [place] % (Auto) 10.2 H (2-6) % Eos % (Auto) 2.5 (2-4) % Baso % (Auto) 0.2 (0-1) % Sodium 146 (140-148) mmol/L Potassium 3.7 (3.6-5.2) mmol/L Chloride 110 H (100-108) mmol/L Carbon Dioxide 28 (21-32) mmol/L Anion Gap 11.7 (5.0-14.0) mmol/L BUN 16 (7-18) mg/dL Creatinine 0.6 (0.6-1.0) mg/dL Est Cr Clr Drug Dosing 53.98 mL/min Estimated GFR (MDRD) > 60 (>60) Glucose 95 (74-106) mg/dL Calcium 7.7 L (8.5-10.1) mg/dL Tre Results Last 24 Hours: Microbiology 05/26/21 09:18 CLOtest - Final Stomach NEGATIVE CLOTEST REFERENCE RANGE: NEGATIVE Med Orders - Current: Current Medications Acetaminophen (Acetaminophen 325 Mg Tab) 650 mg PO Q4H PRN PRN Reason: Pain (Mild 1-3)/fever Last Admin: 05/26/21 20:26 Dose: 650 mg Documented by: Albuterol (Albuterol 8 Gm Inhaler) 0 gm INH Q4H PRN PRN Reason: Dyspnea Albuterol (Albuterol 0.083% 2.5 Mg/3 Ml Neb Soln) 2.5 mg NEB Q4H PRN PRN Reason: Shortness Of Breath/wheezing Calcium Carbonate/Glycine (Calcium Carbonate 500 Mg Tab.Chew) 1,000 mg PO Q2H PRN PRN Reason: Indigestion Last Admin: 05/26/21 14:38 Dose: 1,000 mg Documented by: Lorazepam (Lorazepam 2 Mg/Ml Sdv) 0.5 mg IVPUSH Q4H PRN PRN Reason: Nausea/Vomiting Magnesium Hydroxide (Magnesium Hydroxide 400 Mg/5 Ml Susp 30 Ml Cup) 30 ml PO Q12H PRN PRN Reason: Constipation Melatonin (Melatonin 3 Mg Tab) 9 mg PO BEDTIME PRN PRN Reason: Sleep Metoprolol Tartrate (Metoprolol Tartrate 25 Mg Tab) 25 mg PO BID [facility] Last Admin: 05/28/21 09:24 Dose: 25 mg Documented by: Mometasone Furoate/Formoterol Fumar (Formoterol/Mometasone 200-5 Mcg 8.8 Gm Inhaler) 0 puff IH BIDRT [facility] Last Admin: 05/28/21 07:13 Dose: 2 puff Documented by: Ondansetron HCl (Ondansetron 4 Mg/2 Ml Sdv) 4 mg IV Q6H PRN PRN Reason: Nausea/Vomiting Ondansetron HCl (Ondansetron 4 Mg Tab.Dis) 4 mg PO Q6H PRN PRN Reason: Nausea able to take PO Pantoprazole Sodium ([facility].Cr) [facility] Last Admin: 05/28/21 07:18 Dose: 40 mg Documented by: Senna/Docusate Sodium (Docusate Sodium/Sennosides 50-8.6 Mg Tab) 1 tab PO BID PRN PRN Reason: Constipation Sodium Chloride (Sodium Chloride 0.9% 10 Ml Syringe) 10 ml FLUSH ASDIRECTED PRN PRN Reason: Keep Vein Open Last Admin: 05/25/21 17:17 Dose: 10 ml Documented by: Discontinued Medications Phytonadione 10 mg/ Sodium (Chloride) 51 mls @ 100 mls/hr IV NOW ONE Stop: 05/25/21 18:18 Last Admin: 05/25/21 17:57 Dose: 100 mls/hr Documented by: Sodium Chloride (Normal Saline) 1,000 mls @ 100 mls/hr IV ASDIRECTED [facility] Last Admin: 05/26/21 07:29 Dose: 100 mls/hr Documented by: Sodium Chloride (Normal Saline) 1,000 mls @ 500 mls/hr IV ASDIRECTED [facility] Stop: 05/25/21 20:01 Last Admin: 05/25/21 19:53 Dose: 500 mls/hr Documented by: Sodium Chloride (Normal Saline) 1,000 mls @ 999 mls/hr IV ASDIRECTED [facility] Stop: 05/26/21 10:16 Lidocaine (Lidocaine 2% 5 Ml Sdv) Confirm Administered Dose 5 ml .ROUTE .STK-MED ONE Stop: 05/26/21 06:40 Metoprolol Tartrate (Metoprolol Tartrate 50 Mg Tab) 50 mg PO BID [facility] Metoprolol Tartrate (Metoprolol Tartrate 50 Mg Tab) 25 mg PO BID [facility] Last Admin: 05/25/21 20:32 Dose: 25 mg Documented by: Pantoprazole Sodium (Pantoprazole 40 Mg Vial) 40 mg IVPUSH ONETIME ONE Stop: 05/25/21 18:05 Last Admin: 05/25/21 18:15 Dose: 40 mg Documented by: Pantoprazole Sodium (Pantoprazole 40 Mg Vial) 40 mg IV Q12H [facility] Stop: 05/26/21 23:00 Last Admin: 05/26/21 18:29 Dose: 40 mg Documented by: Propofol (Propofol 200 Mg/20 Ml Sdv) Confirm Administered Dose 200 mg .ROUTE .STK-MED ONE Stop: 05/26/21 06:40 - Exam Quality Assessment: DVT Prophylaxis General: Alert, Oriented, Cooperative, Mild Distress Lungs: Clear to Auscultation, Normal Respiratory Effort Cardiovascular: Regular Rate, Regular Rhythm, No Murmurs GI/Abdominal Exam: Soft, Non-Tender, No Organomegaly, No Distention Extremities: Non-Tender, No Pedal Edema - Patient Data Lab Results Last 24 hrs: Laboratory Results - last 24 hr 05/27/21 05/28/21 05/28/21 Range/Units 15:29 05:45 05:45 WBC 5.2 (4.5-11.0) K/uL RBC 2.47 L (3.30-5.50) M/uL Hgb 9.4 L 7.9 L (12.0-15.0) g/dL Hct 24.4 L (36.0-48.0) % MCV 99 H (80-98) fL MCH 32 H (27-31) pg MCHC 32 (32-36) % Plt Count 175 (150-400) K/uL Neut % (Auto) 65.1 (36-66) % Lymph % (Auto) 22.0 L (24-44) % [place] % (Auto) 10.2 H (2-6) % Eos % (Auto) 2.5 (2-4) % Baso % (Auto) 0.2 (0-1) % Sodium 146 (140-148) mmol/L Potassium 3.7 (3.6-5.2) mmol/L Chloride 110 H (100-108) mmol/L Carbon Dioxide 28 (21-32) mmol/L Anion Gap 11.7 (5.0-14.0) mmol/L BUN 16 (7-18) mg/dL Creatinine 0.6 (0.6-1.0) mg/dL Est Cr Clr Drug Dosing 53.98 mL/min Estimated GFR (MDRD) > 60 (>60) Glucose 95 (74-106) mg/dL Calcium 7.7 L (8.5-10.1) mg/dL Result Diagrams: 05/28/21 05:45 05/28/21 05:45 Tre Results Last 24 hrs: Microbiology 05/26/21 09:18 CLOtest - Final Stomach NEGATIVE CLOTEST REFERENCE RANGE: NEGATIVE Sepsis Event Note - Evaluation Sepsis Screening Result: No Definite Risk - Focused Exam Vital Signs: Vital Signs Temp Pulse Pulse Resp BP BP BP 05/28/21 11:00 97.7 F 74 16 90/46 L 05/28/21 09:24 87 106/43 L 05/28/21 07:00 98.7 F 87 16 106/43 L 05/28/21 02:20 99.3 F 78 16 105/54 L Pulse Ox 05/28/21 11:00 98 05/28/21 09:24 05/28/21 07:00 95 05/28/21 02:20 94 L - Problem List Review Problem List Initiated/Reviewed/Updated: Yes - My Orders Last 24 Hours: My Active Orders 05/28/21 Lunch Soft Diet [DIET] 05/28/21 17:00 HGB [HEMOGLOBIN] [HEME] Stat 05/29/21 05:11 HGB [HEMOGLOBIN] [HEME] AM - Plan Plan:: ASSESSMENT AND PLAN Upper gastrointestinal hemorrhage-complicated by anemia due to blood loss. EGD revealed gastric ulcer that was likely the bleeding source. CLOtest is pending. -PPI every 12 hours -Saline lock IV -Repeat hemoglobin this afternoon and again in the morning -Follow-up CLOtest Dysphagia-longstanding and progressive. Mostly solids but occasionally liquids. No abnormalities seen on EGD. Chronic atrial fibrillation-chronically anticoagulated. She did receive vitamin K in the emergency room and INR is normal. -Continue metoprolol but reduce dose to 25 mg -Hold warfarin Maintenance issues - -DVT prophylaxis-mechanical with active hemorrhage -GI prophylaxis-PPI as above -Nutrition-full liquids Disposition -I anticipate discharge home after the hospital stay Primary care physician -Jim Moore NP
[2021-05-29] MEDS: Formoterol/Mometasone 200-5 MCG 8.8 GM Inhaler IH SCH (07:18)
[2021-05-29] MEDS: Pantoprazole 40 MG Tab.CR PO SCH (07:25)
[2021-05-29] MEDS: Metoprolol Tartrate 25 MG Tab PO SCH (08:37)
--- NOTE | 2021-05-29 12:51 | PCM.DCSUM1 ---
Discharge Summary - Hospital Course Brief History: Ms. Steele is an 85-year-old woman who was admitted through the emergency department with a history of lightheadedness and melenic stools, secondary to upper GI bleed. - Discharge Data Discharge Date: 05/29/21 Discharge Disposition: Home, W Home Health Agency 06 Condition: Fair - Referral to Home Health Date of Face to Face Encounter: 05/29/21 Reason for Homebound Status: Weakness secondary to recent GI bleed Primary Care Physician: Figueroa Coronado MD Skilled Need: Home health care nurse, home health aide, PT OT - Discharge Diagnosis/Problem(s) (1) Gastric ulcer SNOMED Code(s): 926385037 ICD Code: K25.9 - GASTRIC ULCER, UNSP ACUTE OR CHRONIC, W/O HEMOR OR PERF Status: Acute Current Visit: Yes (2) Acute upper gastrointestinal hemorrhage SNOMED Code(s): 65457202 ICD Code: K92.2 - GASTROINTESTINAL HEMORRHAGE, UNSPECIFIED Status: Acute Current Visit: Yes (3) Anemia due to blood loss, acute SNOMED Code(s): 536317648 ICD Code: D62 - ACUTE POSTHEMORRHAGIC ANEMIA Status: Acute Current Visit: Yes - Patient Summary/Data Consults: Consultations 05/25/21 19:26 Consult to Physician [CONS] Routine Consulting Provider: Theo Hodge Call Completed to Consulting Physician: Yes Reason for Consult: GI bleed Person Notified: CODY Date Notified: 05/25/21 Special Instructions: EGD in the morning Hospital Course: Ms. Steele presented to the emergency room with intermittent lightheadedness as well as black tarry stools with some blood. She reports intermittent difficulties with dizziness/lightheadedness usually with activity over the past week. These usually resolved with resting. This morning she had a bowel movement that initially started as a very hard stool but was soon followed by what she describes as a fairly large amount of black and tarry stool with some blood that was maroon in color. She had several of these episodes at home before coming in. She did have associated dizziness. No use of alcohol or tobacco other than rarely having a glass of wine. No history of gastrointestinal bleeding. Patient does report longstanding difficulty with solid foods feeling like they get stuck while she is trying to swallow them. Work-up in the emergency room revealed hemoglobin of 9.7 and as recently as 3 months ago was 13.7. She is mildly tachycardic and has a mildly elevated lactic acid consistent with hypoperfusion. INR is 3. She has received pantoprazole and IV vitamin K in the emergency room. She was admitted for management of a presumed upper GI bleed with anemia due to blood loss. She was continued on IV Protonix after admission. Serial hemoglobin levels were obtained and monitored. On the day after admission she was seen and evaluated by Dr. Hodge, EGD was performed which did show evidence of a gastric ulcer. The ulcer did not appear to be bleeding actively at the time of endoscopy. Biopsies were obtained at the time of endoscopy including evaluation for Helicobacter pylori. These results are pending at the time of discharge. She was transitioned to oral Protonix and her diet was slowly advanced. At the time of discharge there has been no evidence of active bleeding for 2 days. Hemoglobin did drop to 7.2 during the initial portion of hospital stay and because of active bleeding she was transfused 1 unit of red blood cells. She will be discharged home on oral Protonix 40 mg twice daily for 2 weeks and then once daily thereafter. She will be on a soft low residue diet for the next few weeks. Her anticoagulation was reversed at the time of admission and she remained off warfarin during her hospital stay. She should remain off of warfarin until seen for her follow-up appointment and decision to be made at that time as to whether to resume anticoagulation. CBC should be obtained at the time of follow-up appointment in 1 week with her primary care provider. She will be discharged home with home care services including home physical therapy and Occupational Therapy. - Patient Instructions Diet: GI Soft/Low Residue/Low Fiber Activity: As Tolerated Other/Special Instructions: Please arrange for home care services including home physical therapy and Occupational Therapy. Please schedule follow-up appointment with primary care provider within 1 week, CBC should be obtained at the time of follow-up appointment. Hold anticoagulation with warfarin until seen for follow-up appointment. - Discharge Plan *PRESCRIPTION DRUG MONITORING PROGRAM REVIEWED*: Not Applicable *COPY OF PRESCRIPTION DRUG MONITORING REPORT IN PATIENT CALE: Not Applicable Prescriptions/Med Rec: Metoprolol Tartrate [Lopressor] 25 mg PO BID #60 tablet Pantoprazole [ProTONIX] 40 mg PO BIDAC #30 tab.cr Home Medications: Home Meds Albuterol Sulfate [Proair Hfa] 2 puff IH ASDIRECTED PRN 03/09/13 [History] Calcium/Mag/D3/B12/FA/B6/[place] [Folgard OS] 1 each PO DAILY 03/09/13 [History] Multivitamin [Multi-Vitamin Daily] 1 each PO DAILY 03/09/13 [History] Fluticasone/Vilanterol [Breo Ellipta 100-25 MCG Inhalation Kit] 1 inh INH DAILY 07/31/18 [History] Metoprolol Tartrate [Lopressor] 25 mg PO BID #60 tablet 05/29/21 [Rx] Pantoprazole [ProTONIX] 40 mg PO BIDAC #30 tab.cr 05/29/21 [Rx] Patient Handouts: Fall Prevention in the Home, Adult, [id number], Upper Gastrointestinal Bleeding Forms: ED Department Discharge Referrals: Jim Moore NP [Family Provider] - 06/05/21 10:30 am (Your appt with Jim Moore will be at the [facility].) - Discharge Summary/Plan Comment DC Time >30 min.: No Total # of Minutes for Discharge Time: 20 - Patient Data Vitals - Most Recent: Last Vital Signs Temp 98.1 F 05/29/21 07:25 Pulse 84 05/29/21 08:37 Resp 18 05/29/21 07:25 BP 103/47 L 05/29/21 08:37 Pulse Ox 93 L 05/29/21 07:25 Weight - Most Recent: 112 lb I&O - Last 24 hours: Intake & Output 05/28/21 05/29/21 05/29/21 22:59 06:59 14:59 Intake Total 800 400 350 Output Total 200 400 Balance 600 0 350 Lab Results - Last 24 hrs: Laboratory Results - last 24 hr 05/28/21 05/29/21 Range/Units 17:14 06:04 Hgb 9.1 L 7.6 L (12.0-15.0) g/dL Med Orders - Current: Current Medications Acetaminophen (Acetaminophen 325 Mg Tab) 650 mg PO Q4H PRN PRN Reason: Pain (Mild 1-3)/fever Last Admin: 05/26/21 20:26 Dose: 650 mg Documented by: Albuterol (Albuterol 8 Gm Inhaler) 0 gm INH Q4H PRN PRN Reason: Dyspnea Albuterol (Albuterol 0.083% 2.5 Mg/3 Ml Neb Soln) 2.5 mg NEB Q4H PRN PRN Reason: Shortness Of Breath/wheezing Calcium Carbonate/Glycine (Calcium Carbonate 500 Mg Tab.Chew) 1,000 mg PO Q2H P RN PRN Reason: Indigestion Last Admin: 05/26/21 14:38 Dose: 1,000 mg Documented by: Lorazepam (Lorazepam 2 Mg/Ml Sdv) 0.5 mg IVPUSH Q4H PRN PRN Reason: Nausea/Vomiting Magnesium Hydroxide (Magnesium Hydroxide 400 Mg/5 Ml Susp 30 Ml Cup) 30 ml PO Q12H PRN PRN Reason: Constipation Melatonin (Melatonin 3 Mg Tab) 9 mg PO BEDTIME PRN PRN Reason: Sleep Metoprolol Tartrate (Metoprolol Tartrate 25 Mg Tab) 25 mg PO BID [facility] Last Admin: 05/29/21 08:37 Dose: 25 mg Documented by: Mometasone Furoate/Formoterol Fumar (Formoterol/Mometasone 200-5 Mcg 8.8 Gm Inhaler) 0 puff IH BIDRT [facility] Last Admin: 05/29/21 07:18 Dose: 2 puff Documented by: Ondansetron HCl (Ondansetron 4 Mg/2 Ml Sdv) 4 mg IV Q6H PRN PRN Reason: Nausea/Vomiting Ondansetron HCl (Ondansetron 4 Mg Tab.Dis) 4 mg PO Q6H PRN PRN Reason: Nausea able to take PO Pantoprazole Sodium ([facility] 40 [facility].Cr) [facility] Last Admin: 05/29/21 07:25 Dose: 40 mg Documented by: Senna/Docusate Sodium (Docusate Sodium/Sennosides 50-8.6 Mg Tab) 1 tab PO BID PRN PRN Reason: Constipation Sodium Chloride (Sodium Chloride 0.9% 10 Ml Syringe) 10 ml FLUSH ASDIRECTED PRN PRN Reason: Keep Vein Open Last Admin: 05/25/21 17:17 Dose: 10 ml Documented by: Discontinued Medications Phytonadione 10 mg/ Sodium (Chloride) 51 mls @ 100 mls/hr IV NOW ONE Stop: 05/25/21 18:18 Last Admin: 05/25/21 17:57 Dose: 100 mls/hr Documented by: Sodium Chloride (Normal Saline) 1,000 mls @ 100 mls/hr IV ASDIRECTED [facility] Last Admin: 05/26/21 07:29 Dose: 100 mls/hr Documented by: Sodium Chloride (Normal Saline) 1,000 mls @ 500 mls/hr IV ASDIRECTED [facility] Stop: 05/25/21 20:01 Last Admin: 05/25/21 19:53 Dose: 500 mls/hr Documented by: Sodium Chloride (Normal Saline) 1,000 mls @ 999 mls/hr IV ASDIRECTED [facility] Stop: 05/26/21 10:16 Lidocaine (Lidocaine 2% 5 Ml Sdv) Confirm Administered Dose 5 ml .ROUTE .STK-MED ONE Stop: 05/26/21 06:40 Metoprolol Tartrate (Metoprolol Tartrate 50 Mg Tab) 50 mg PO BID [facility] Metoprolol Tartrate (Metoprolol Tartrate 50 Mg Tab) 25 mg PO BID [facility] Last Admin: 05/25/21 20:32 Dose: 25 mg Documented by: Pantoprazole Sodium (Pantoprazole 40 Mg Vial) 40 mg IVPUSH ONETIME ONE Stop: 05/25/21 18:05 Last Admin: 05/25/21 18:15 Dose: 40 mg Documented by: Pantoprazole Sodium (Pantoprazole 40 Mg Vial) 40 mg IV Q12H [facility] Stop: 05/26/21 23:00 Last Admin: 05/26/21 18:29 Dose: 40 mg Documented by: Propofol (Propofol 200 Mg/20 Ml Sdv) Confirm Administered Dose 200 mg .ROUTE .STK-MED ONE Stop: 05/26/21 06:40 - Exam General: Reports: Alert, Oriented, Cooperative, No Acute Distress Lungs: Reports: Clear to Auscultation, Normal Respiratory Effort Cardiovascular: Reports: Regular Rate, Regular Rhythm, No Murmurs GI/Abdominal Exam: Soft, Non-Tender, No Organomegaly, No Distention Extremities: Non-Tender, No Pedal Edema *Q Meaningful Use (DIS) - VTE *Q VTE Pharmacological Contraindications *Q: Active Hemorrhage
[2021-05-29 13:13] VITALS: BP 98/34; PULSE 78
== END 2021-05-29 13:30 | disposition home health service (06) | DRG 811 ==
LOC: JP.ED 16:21 → JP.MS 18:55 → UNDOADMIN 19:27 → JP.MS 19:27 → UNDODISIN 05-29 13:30
PROVIDERS: ADMIT Internal Medicine; ATTEND Hospitalist
PROC: 0DB78ZX Excision of Stomach, Pylorus, Via Natural or Artificial Opening Endoscopic, Diagnostic (ICD-10-PCS; principal; 2021-05-26)
PROC: 30233N1 Transfusion of Nonautologous Red Blood Cells into Peripheral Vein, Percutaneous Approach (ICD-10-PCS; 2021-05-29)
DX: D62 Acute posthemorrhagic anemia (principal); K25.0 Acute gastric ulcer with hemorrhage; K29.71 Gastritis, unspecified, with bleeding; K92.1 Melena; J44.9 Chronic obstructive pulmonary disease, unspecified; I48.91 Unspecified atrial fibrillation; H54.7 Unspecified visual loss; K21.9 Gastro-esophageal reflux disease without esophagitis; M19.90 Unspecified osteoarthritis, unspecified site; Z88.6 Allergy status to analgesic agent; Z88.0 Allergy status to penicillin; Z88.2 Allergy status to sulfonamides; Z91.048 Other nonmedicinal substance allergy status; Z79.01 Long term (current) use of anticoagulants; Z79.899 Other long term (current) drug therapy; Z20.822 Contact with and (suspected) exposure to COVID-19
CPT/HCPCS: 0241U; 36415; 36430; 80048; 80053; 81001; 82272; 83605; 85018; 85025; 85027; 85610; 85730; 86850; 86900; 86901; 86920; 86922; 87081; 94640; 96365; 96375; 99285; A9270-GY; C9113; J2704; J3430; J7030; P9016

== ENCOUNTER 2021-06-02 09:16 | Inpatient (IN) | payer MEDICARE, BC ==
[2021-06-02] MEDS ORDERED: Aspirin 81 MG Tab.Chew PO ONE (10:24)
[2021-06-02] MEDS ORDERED: Albuterol/Ipratropium 3.0-0.5 MG/3 ML Neb Soln NEB ONE (10:28)
--- NOTE | 2021-06-02 10:30 | EDM.PDOC ---
<OfficerDion - Last Filed: 06/02/21 16:49> ED HPI GENERAL MEDICAL PROBLEM - General Chief Complaint: General Stated Complaint: SOB, WEAK Time Seen by Provider: 06/02/21 10:21 Source of Information: Reports: Patient, Family, RN Notes Reviewed History Limitations: Reports: No Limitations - History of Present Illness INITIAL COMMENTS - FREE TEXT/NARRATIVE: 85-year-old female presents emergency department day complaint of increasing shortness of breath. She was recently admitted to hospital for upper GI bleed had received transfusion as well. She states last night developed severe chest pain lasted a couple hours and then resolved by this morning however she feels more short of breath than usual, does have a known history of emphysema. - Related Data Allergies Allergy/AdvReac Type Severity Reaction Status Date / Time adhesive Allergy Other Verified 06/02/21 09:40 morphine Allergy Hallucinati Verified 06/02/21 09:40 ons Penicillins Allergy Rash Verified 06/02/21 09:40 Sulfa (Sulfonamide Allergy Hives Verified 06/02/21 09:40 Antibiotics) Home Meds: Home Meds Albuterol Sulfate [Proair Hfa] 2 puff IH ASDIRECTED PRN 03/09/13 [History] Calcium/Mag/D3/B12/FA/B6/[place] [Folgard OS] 1 each PO DAILY 03/09/13 [History] Multivitamin [Multi-Vitamin Daily] 1 each PO DAILY 03/09/13 [History] Fluticasone/Vilanterol [Breo Ellipta 100-25 MCG Inhalation Kit] 1 inh INH DAILY 07/31/18 [History] Metoprolol Tartrate [Lopressor] 25 mg PO BID #60 tablet 05/29/21 [Rx] Pantoprazole [ProTONIX] 40 mg PO BIDAC #30 tab.cr 05/29/21 [Rx] Past Medical History HEENT History: Reports: Allergic Rhinitis, Cataract, Impaired Vision Cardiovascular History: Reports: Afib Respiratory History: Reports: Asthma, COPD Gastrointestinal History: Reports: G[employer]D [employer]ER History: Reports: Musculoskeletal History: Reports: Arthritis Hematologic History: Reports: Anticoagulation Therapy, Blood Transfusion(s) Dermatologic History: Reports: Eczema - Infectious Disease History Infectious Disease History: Reports: Chicken Pox, Measles, Mumps - Past Surgical History HEENT Surgical History: Reports: Cataract Surgery, Tonsillectomy Cardiovascular Surgical History: Reports: None GI Surgical History: Reports: Appendectomy, Cholecystectomy, Colonoscopy, EGD, Hernia, Inguinal Female Surgical History: Reports: Breast Biopsy, Hysterectomy, Salpingo- Oophorectomy Social & Family History - Family History Family Medical History: No Pertinent Family History - Tobacco Use Tobacco Use Status *Q: Never Tobacco User - Caffeine Use Caffeine Use: Reports: Coffee - Recreational Drug Use Recreational Drug Use: No ED ROS GENERAL - Review of Systems Review Of Systems: See Below Constitutional: Reports: No Symptoms HEENT: Reports: No Symptoms Respiratory: Reports: Shortness of Breath Cardiovascular: Reports: Chest Pain, Dyspnea on Exertion GI/Abdominal: Reports: No Symptoms ED EXAM, GENERAL - Physical Exam Exam: See Below Exam Limited By: No Limitations General Appearance: Alert, WD/WN, No Apparent Distress Respiratory/Chest: No Respiratory Distress, Chest Non-Tender, Decreased Breath Sounds, Crackles Cardiovascular: Regular Rate, Rhythm, No Murmur GI/Abdominal: Soft, Non-Tender Extremities: No Pedal Edema Course - Re-Assessments/Exams Free Text/Narrative Re-Assessment/Exam: 06/02/21 14:12 Good response to 40 mg Lasix however she still will become hypoxic with exertion maintains her oxygen saturation at rest but any amount of movement will become hypoxic. 06/02/21 16:49 She is off oxygen while at rest however any exertion she will become hypoxic, she is willing to try another dose of Lasix to see if we can further relieve the fluid overload and then reassess in the morning hopefully she is able to ambulate without becoming hypoxic and we can discharge her home on a smaller dose of Lasix follow-up with primary care. Departure - Departure Disposition: Admitted As Inpatient 65 Clinical Impression: Hypoxemia, Hypokalemia, CHF, Congestive heart failure - Discharge Information Sepsis Event Note (ED) - Evaluation Sepsis Screening Result: No Definite Risk <Figueroa Galaviz - Last Filed: 06/02/21 22:42> Course - Vital Signs Last Recorded V/S: Last Vital Signs Temp 97.7 F 06/02/21 09:43 Pulse 92 06/02/21 20:34 Resp 23 H 06/02/21 20:34 BP 107/53 L 06/02/21 20:34 Pulse Ox 98 06/02/21 20:34 - Orders/Labs/Meds Orders: Active Orders 24 hr Category Date Time Status Chest 1V Frontal [CR] Stat Exams 06/02/21 10:27 Taken Medication Orders Acetaminophen (Acetaminophen 325 Mg Tab) 650 mg PO Q4H PRN PRN Reason: Pain (Mild 1-3)/fever Albuterol (Albuterol 8 Gm Inhaler) gm INH ASDIRECTED PRN PRN Reason: Dyspnea Albuterol/Ipratropium (Albuterol/Ipratropium 3.0-0.5 Mg/3 Ml Neb Soln) 3 ml NEB QID PRN PRN Reason: Shortness Of Breath/wheezing Sodium Chloride (Normal Saline) 80 mls @ 3.5 mls/sec IV ASDIRECTED [facility] Iopamidol (Iopamidol 755 Mg/Ml 100 Ml Bottle) 55 ml IV . DIRECTED [facility] Metoprolol Tartrate (Metoprolol Tartrate 25 Mg Tab) 25 mg PO BID [facility] Mometasone Furoate/Formoterol Fumar (Formoterol/Mometasone 100-5 Mcg 8.8 Gm Inhaler) 2 puff IH BID [facility] Ondansetron HCl (Ondansetron 4 Mg/2 Ml Sdv) 4 mg IV Q4H PRN PRN Reason: Nausea/Vomiting Pantoprazole Sodium (Pantoprazole 40 Mg Tab.Cr) 40 mg PO BIDAC [facility] Polyethylene Glycol (Polyethylene Glycol 3350 Powder 17 Gm Packet) 17 gm PO DAILY PRN PRN Reason: Constipation Sodium Chloride (Sodium Chloride 0.9% 10 Ml Syringe) 10 ml FLUSH ASDIRECTED PRN PRN Reason: Keep Vein Open Labs: Laboratory Tests 06/02/21 06/02/21 06/02/21 Range/Units 10:41 10:41 10:41 WBC 9.3 (4.5-11.0) K/uL RBC 2.98 L (3.30-5.50) M/uL Hgb 9.3 L (12.0-15.0) g/dL Hct 29.8 L (36.0-48.0) % MCV 100 H (80-98) fL MCH 31 (27-31) pg MCHC 31 L (32-36) % Plt Count 263 (150-400) K/uL Neut % (Auto) 85.3 H (36-66) % Lymph % (Auto) 5.5 L (24-44) % Rains % (Auto) 8.9 H (2-6) % Eos % (Auto) 0.2 L (2-4) % Baso % (Auto) 0.1 (0-1) % Sodium 142 (140-148) mmol/L Potassium 3.7 (3.6-5.2) mmol/L Chloride 104 (100-108) mmol/L Carbon Dioxide 31 (21-32) mmol/L Anion Gap 7.5 (5.0-14.0) mmol/L BUN 15 (7-18) mg/dL Creatinine 0.6 (0.6-1.0) mg/dL Est Cr Clr Drug Dosing 53.98 mL/min Estimated GFR (MDRD) > 60 (>60) Glucose 106 (74-106) mg/dL Lactic Acid 1.3 (0.4-2.0) mmol/L Calcium 8.3 L (8.5-10.1) mg/dL Total Bilirubin 1.1 H (0.2-1.0) mg/dL AST 27 (15-37) U/L ALT 35 (12-78) U/L Alkaline Phosphatase 136 H (46-116) U/L Troponin I < 0.017 (0.000-0.056) ng/mL NT-Pro-B Natriuret Pep 3499 H (5-450) pg/mL Total Protein 6.0 L (6.4-8.2) g/dL Albumin 3.1 L (3.4-5.0) g/dL Globulin 2.9 (2.3-3.5) g/dL Albumin/Globulin Ratio 1.1 L (1.2-2.2) Influenza Type A RNA (NEGATIVE) RSV RNA (INAAT) (NEGATIVE) Influenza Type B RNA (NEGATIVE) SARS-CoV-2 RNA (TAVO) (NEGATIVE) 06/02/21 06/02/21 Range/Units 11:05 17:12 WBC (4.5-11.0) K/uL RBC (3.30-5.50) M/uL Hgb (12.0-15.0) g/dL Hct (36.0-48.0) % MCV (80-98) fL MCH (27-31) pg MCHC (32-36) % Plt Count (150-400) K/uL Neut % (Auto) (36-66) % Lymph % (Auto) (24-44) % Rains % (Auto) (2-6) % Eos % (Auto) (2-4) % Baso % (Auto) (0-1) % Sodium (140-148) mmol/L Potassium 3.3 L (3.6-5.2) mmol/L Chloride (100-108) mmol/L Carbon Dioxide (21-32) mmol/L Anion Gap (5.0-14.0) mmol/L BUN (7-18) mg/dL Creatinine (0.6-1.0) mg/dL Est Cr Clr Drug Dosing mL/min Estimated GFR (MDRD) (>60) Glucose (74-106) mg/dL Lactic Acid (0.4-2.0) mmol/L Calcium (8.5-10.1) mg/dL Total Bilirubin (0.2-1.0) mg/dL AST (15-37) U/L ALT (12-78) U/L Alkaline Phosphatase (46-116) U/L Troponin I (0.000-0.056) ng/mL NT-Pro-B Natriuret Pep (5-450) pg/mL Total Protein (6.4-8.2) g/dL Albumin (3.4-5.0) g/dL Globulin (2.3-3.5) g/dL Albumin/Globulin Ratio (1.2-2.2) Influenza Type A RNA Negative (NEGATIVE) RSV RNA (INAAT) Negative (NEGATIVE) Influenza Type B RNA Negative (NEGATIVE) SARS-CoV-2 RNA (TAVO) Negative (NEGATIVE) Meds: Medications Generic Name Dose Route Start Last Admin Trade Name Freq PRN Reason Stop Dose Admin Acetaminophen 650 mg 06/02/21 22:19 Acetaminophen 325 Mg Tab PO Q4H PRN Pain (Mild 1-3)/fever Albuterol gm 06/02/21 22:19 Albuterol 8 Gm Inhaler INH ASDIRECTED PRN Dyspnea Albuterol/Ipratropium 3 ml 06/02/21 22:19 Albuterol/Ipratropium 3.0-0.5 Mg/3 Ml Neb Soln NEB QID PRN Shortness Of Breath/wheezing Sodium Chloride 80 mls @ 3.5 mls/sec 06/02/21 21:45 Normal Saline IV ASDIRECTED [facility] Iopamidol 55 ml 06/02/21 21:45 Iopamidol 755 Mg/Ml 100 Ml Bottle IV . DIRECTED [facility] Metoprolol Tartrate 25 mg 06/02/21 22:19 Metoprolol Tartrate 25 Mg Tab PO BID [facility] Mometasone Furoate/Formoterol Fumar 2 puff 06/03/21 09:00 Formoterol/Mometasone 100-5 Mcg 8.8 Gm Inhaler IH BID [facility] Ondansetron HCl 4 mg 06/02/21 22:19 Ondansetron 4 Mg/2 Ml Sdv IV Q4H PRN Nausea/Vomiting Pantoprazole Sodium 40 mg 06/03/21 07:30 Pantoprazole 40 Mg Tab.Cr PO BIDAC [facility] Polyethylene Glycol 17 gm 06/02/21 22:19 Polyethylene Glycol 3350 Powder 17 Gm Packet PO DAILY PRN Constipation Sodium Chloride 10 ml 06/02/21 22:19 Sodium Chloride 0.9% 10 Ml Syringe FLUSH ASDIRECTED PRN Keep Vein Open Discontinued Medications Generic Name Dose Route Start Last Admin Trade Name Freq PRN Reason Stop Dose Admin Albuterol/Ipratropium 3 ml 06/02/21 10:28 06/02/21 11:02 Albuterol/Ipratropium 3.0-0.5 Mg/3 Ml Neb Soln NEB 06/02/21 10:29 3 ml ONETIME ONE Administration Aspirin 324 mg 06/02/21 10:24 06/02/21 11:01 Aspirin 81 Mg Tab.Chew PO 06/02/21 10:25 324 mg ONETIME ONE Administration Furosemide 40 mg 06/02/21 11:20 06/02/21 11:28 Furosemide 40 Mg/4 Ml Vial IVPUSH 06/02/21 11:21 40 mg ONETIME ONE Administration Furosemide 40 mg 06/02/21 16:48 06/02/21 17:03 Furosemide 40 Mg/4 Ml Vial IVPUSH 06/02/21 16:49 40 mg ONETIME ONE Administration Potassium Chloride 20 meq/ 100 mls @ 50 mls/hr 06/02/21 17:44 06/02/21 18:45 Premix IV 06/02/21 19:43 50 mls/hr ONETIME ONE Administration Lidocaine HCl 2 ml 06/02/21 18:17 06/02/21 18:45 Lidocaine 1% 5 Ml Sdv INJECT 06/02/21 18:18 2 ml ONETIME ONE Administration Potassium Chloride 40 meq 06/02/21 17:44 06/02/21 18:21 Potassium Chloride 20 Meq Tab.Er PO 06/02/21 17:45 40 meq ONETIME ONE Administration Sodium Chloride 10 ml 06/02/21 21:40 Sodium Chloride 0.9% 10 Ml Syringe FLUSH 06/02/21 21:41 ONETIME ONE - Re-Assessments/Exams Free Text/Narrative Re-Assessment/Exam: 06/02/21 20:02 Patient care turned over from Officer, initial plan was to treat the patient with IV diuresis and IV potassium overnight, she is still desaturating with activity. However we were able to find a bed for inpatient care so Dr. Beatty kindly agreed to come in and see the patient to admit for congestive heart failure and hypokalemia. Departure - Departure Time of Disposition: 21:55 Sepsis Event Note (ED) - Focused Exam Vital Signs: Vital Signs Pulse Resp BP Pulse Ox 06/02/21 18:27 20 96/50 L 90 L 06/02/21 16:29 93 24 H 136/64 94 L 06/02/21 15:55 80 20 122/60 97 06/02/21 14:29 91 27 H 130/67 94 L 06/02/21 14:07 20 121/64 93 L 06/02/21 12:45 20 129/65 98 06/02/21 11:45 24 H 134/70 99 06/02/21 10:45 20 119/71 88 L
[2021-06-02] MEDS ORDERED: Furosemide 40 MG/4 ML VIAL IVPUSH ONE ×2 (11:20→16:48)
[2021-06-02 11:46] LABS: CORONAVIRUS COVID-19 NAA NEGATIVE (NEGATIVE)
[2021-06-02] MEDS ORDERED: Potassium Chloride 20 MEQ Tab.ER PO ONE (17:44)
[2021-06-02] MEDS ORDERED: Potassium Chloride 20 MEQ in Premix Bag 1 BAG IV ONE (17:44)
--- NOTE | 2021-06-02 20:04 | PCM.HP.2 ---
H&P History of Present Illness - General Date of Service: 06/02/21 Admit Problem/Dx: Admission Diagnosis/Problem Admission Diagnosis/Problem Dyspnea Source of Information: Patient, Provider, RN Notes Reviewed History Limitations: Reports: No Limitations - History of Present Illness Initial Comments - Free Text/Narative: Ms. Steele is an 85-year-old woman who was admitted through the emergency department observation status with increased shortness of breath secondary to pulmonary edema. She does have a known history of atrial fibrillation, but denies any previous history of congestive heart failure. She was hospitalized at this facility earlier in the week with an upper GI bleed secondary to a gastric ulcer. She was discharged home 4 days ago and reports that she felt well at that time. Over the last 36 hours has not felt as well and developed an episode of chest pain last night across her upper chest. At that time she also noted an increase in shortness of breath. She does have underlying pulmonary disease and at baseline experiences shortness of breath with activity. She was able to sleep through the night but noted when she got up to use the bathroom that she came back to bed very short of breath. This morning again experience shortness of breath with exertion and on her home pulse oximeter was noted to have oxygen saturations in the 80s after activity. She presented to the emergency department for further evaluation. She denies any recent change in her cough and has had no fever or chills. White blood cell count was found to be normal and Covid testing is negative. Chest x-ray suggests pulmonary edema and increased pulmonary vascularity consistent with congestive heart failure. - Related Data Allergies/Adverse Reactions: Allergies Allergy/AdvReac Type Severity Reaction Status Date / Time adhesive Allergy Other Verified 06/02/21 09:40 morphine Allergy Hallucinati Verified 06/02/21 09:40 ons Penicillins Allergy Rash Verified 06/02/21 09:40 Sulfa (Sulfonamide Allergy Hives Verified 06/02/21 09:40 Antibiotics) Home Medications: Home Meds Albuterol Sulfate [Proair Hfa] 2 puff IH ASDIRECTED PRN 03/09/13 [History] Calcium/Mag/D3/B12/FA/B6/[place] [Folgard OS] 1 each PO DAILY 03/09/13 [History] Multivitamin [Multi-Vitamin Daily] 1 each PO DAILY 03/09/13 [History] Fluticasone/Vilanterol [Breo Ellipta 100-25 MCG Inhalation Kit] 1 inh INH DAILY 07/31/18 [History] Metoprolol Tartrate [Lopressor] 25 mg PO BID #60 tablet 05/29/21 [Rx] Pantoprazole [ProTONIX] 40 mg PO BIDAC #30 tab.cr 05/29/21 [Rx] Past Medical History HEENT History: Reports: Allergic Rhinitis, Cataract, Impaired Vision Cardiovascular History: Reports: Afib Respiratory History: Reports: Asthma, COPD Gastrointestinal History: Reports: GERD [employer] History: Reports: Musculoskeletal History: Reports: Arthritis Hematologic History: Reports: Anticoagulation Therapy, Blood Transfusion(s) Dermatologic History: Reports: Eczema - Infectious Disease History Infectious Disease History: Reports: Chicken Pox, Measles, Mumps - Past Surgical History HEENT Surgical History: Reports: Cataract Surgery, Tonsillectomy Cardiovascular Surgical History: Reports: None GI Surgical History: Reports: Appendectomy, Cholecystectomy, Colonoscopy, EGD, Hernia, Inguinal Female Surgical History: Reports: Breast Biopsy, Hysterectomy, Salpingo- Oophorectomy Social & Family History - Family History Family Medical History: No Pertinent Family History - Tobacco Use Tobacco Use Status *Q: Never Tobacco User - Caffeine Use Caffeine Use: Reports: Coffee - Recreational Drug Use Recreational Drug Use: No H&P Review of Systems - Review of Systems: Review Of Systems: See Below General: Reports: Malaise, Weakness, Fatigue. Denies: Fever, Chills HEENT: Reports: No Symptoms Pulmonary: Reports: Shortness of Breath. Denies: Wheezing, Pleuritic Chest Pain, Cough, Sputum, Hemoptysis Cardiovascular: Reports: Chest Pain, Dyspnea on Exertion. Denies: Palpitations, Orthopnea, PND, Edema, Lightheadedness Gastrointestinal: Reports: No Symptoms Genitourinary: Reports: No Symptoms Musculoskeletal: Reports: No Symptoms Skin: Reports: No Symptoms Psychiatric: Reports: No Symptoms Neurological: Reports: No Symptoms Hematologic/Lymphatic: Reports: No Symptoms Immunologic: Reports: No Symptoms Exam - Exam Exam: See Below - Vital Signs Vital Signs: Last Vital Signs Temp 97.7 F 06/02/21 09:43 Pulse 93 06/02/21 16:29 Resp 20 06/02/21 18:27 BP 96/50 L 06/02/21 18:27 Pulse Ox 90 L 06/02/21 18:27 Weight: 112 lb - Exam Quality Assessment: Supplemental Oxygen, DVT Prophylaxis General: Alert, Oriented, Cooperative, Mild Distress HEENT: Conjunctiva Clear, Hearing Intact, Mucosa Moist & [place], Normal Nasal Septum, Posterior Pharynx Clear, Pupils Equal Neck: Supple, Trachea Midline, +2 Carotid Pulse wo Bruit Lungs: Clear to Auscultation, Normal Respiratory Effort, Decreased Breath Sounds. No: Crackles, Rales, Rhonchi, Wheezing Cardiovascular: Regular Rate, Normal S1, Normal S2, Irregular Rhythm. No: Systolic Murmur, Diastolic Murmur GI/Abdominal Exam: Soft, Non-Tender, No Organomegaly, No Distention Back Exam: Normal Inspection, Full Range of Motion Extremities: Non-Tender, No Pedal Edema Skin: Warm, Dry, Intact Neurological: Cranial Nerves Intact, Strength Equal Bilateral, Normal Speech, Normal Tone, Sensation Intact. No: Focal Deficit Neuro Extensive - Mental Status: Alert, Oriented x3, Normal Mood/Affect, Normal Cognition, Memory Intact - Patient Data Lab Results Last 24 hrs: Laboratory Results - last 24 hr 06/02/21 06/02/21 06/02/21 Range/Units 10:41 10:41 10:41 WBC 9.3 (4.5-11.0) K/uL RBC 2.98 L (3.30-5.50) M/uL Hgb 9.3 L (12.0-15.0) g/dL Hct 29.8 L (36.0-48.0) % MCV 100 H (80-98) fL MCH 31 (27-31) pg MCHC 31 L (32-36) % Plt Count 263 (150-400) K/uL Neut % (Auto) 85.3 H (36-66) % Lymph % (Auto) 5.5 L (24-44) % [place] % (Auto) 8.9 H (2-6) % Eos % (Auto) 0.2 L (2-4) % Baso % (Auto) 0.1 (0-1) % Sodium 142 (140-148) mmol/L Potassium 3.7 (3.6-5.2) mmol/L Chloride 104 (100-108) mmol/L Carbon Dioxide 31 (21-32) mmol/L Anion Gap 7.5 (5.0-14.0) mmol/L BUN 15 (7-18) mg/dL Creatinine 0.6 (0.6-1.0) mg/dL Est Cr Clr Drug Dosing 53.98 mL/min Estimated GFR (MDRD) > 60 (>60) Glucose 106 (74-106) mg/dL Lactic Acid 1.3 (0.4-2.0) mmol/L Calcium 8.3 L (8.5-10.1) mg/dL Total Bilirubin 1.1 H (0.2-1.0) mg/dL AST 27 (15-37) U/L ALT 35 (12-78) U/L Alkaline Phosphatase 136 H (46-116) U/L Troponin I < 0.017 (0.000-0.056) ng/mL NT-Pro-B Natriuret Pep 3499 H (5-450) pg/mL Total Protein 6.0 L (6.4-8.2) g/dL Albumin 3.1 L (3.4-5.0) g/dL Globulin 2.9 (2.3-3.5) g/dL Albumin/Globulin Ratio 1.1 L (1.2-2.2) Influenza Type A RNA (NEGATIVE) RSV RNA (INAAT) (NEGATIVE) Influenza Type B RNA (NEGATIVE) SARS-CoV-2 RNA (TAVO) (NEGATIVE) 06/02/21 06/02/21 Range/Units 11:05 17:12 WBC (4.5-11.0) K/uL RBC (3.30-5.50) M/uL Hgb (12.0-15.0) g/dL Hct (36.0-48.0) % MCV (80-98) fL MCH (27-31) pg MCHC (32-36) % Plt Count (150-400) K/uL Neut % (Auto) (36-66) % Lymph % (Auto) (24-44) % [place] % (Auto) (2-6) % Eos % (Auto) (2-4) % Baso % (Auto) (0-1) % Sodium (140-148) mmol/L Potassium 3.3 L (3.6-5.2) mmol/L Chloride (100-108) mmol/L Carbon Dioxide (21-32) mmol/L Anion Gap (5.0-14.0) mmol/L BUN (7-18) mg/dL Creatinine (0.6-1.0) mg/dL Est Cr Clr Drug Dosing mL/min Estimated GFR (MDRD) (>60) Glucose (74-106) mg/dL Lactic Acid (0.4-2.0) mmol/L Calcium (8.5-10.1) mg/dL Total Bilirubin (0.2-1.0) mg/dL AST (15-37) U/L ALT (12-78) U/L Alkaline Phosphatase (46-116) U/L Troponin I (0.000-0.056) ng/mL NT-Pro-B Natriuret Pep (5-450) pg/mL Total Protein (6.4-8.2) g/dL Albumin (3.4-5.0) g/dL Globulin (2.3-3.5) g/dL Albumin/Globulin Ratio (1.2-2.2) Influenza Type A RNA Negative (NEGATIVE) RSV RNA (INAAT) Negative (NEGATIVE) Influenza Type B RNA Negative (NEGATIVE) SARS-CoV-2 RNA (TAVO) Negative (NEGATIVE) Result Diagrams: 06/02/21 10:41 06/02/21 17:12 Sepsis Event Note - Evaluation Sepsis Screening Result: No Definite Risk - Focused Exam Vital Signs: Vital Signs Temp Pulse Resp BP Pulse Ox 06/02/21 18:27 20 96/50 L 90 L 06/02/21 16:29 93 24 H 136/64 94 L 06/02/21 15:55 80 20 122/60 97 06/02/21 14:29 91 27 H 130/67 94 L 06/02/21 14:07 20 121/64 93 L 06/02/21 12:45 20 129/65 98 06/02/21 11:45 24 H 134/70 99 06/02/21 10:45 20 119/71 88 L 06/02/21 09:43 97.7 F 84 14 117/67 90 L *Q Meaningful Use (ADM) - VTE *Q VTE Pharmacological Contraindications *Q: Active Hemorrhage - VTE Risk Assess *Q Each Risk Factor Represents 1 Point: Abnormal Pulmonary Function (COPD) Total Score 1 Point Risk Factors: 1 Each Risk Factor Represents 2 Points: None Total Score 2 Point Risk Factors: 0 Each Risk Factor Represents 3 Points: Age 75 Years or Greater Total Score 3 Point Risk Factors: 3 Each Risk Factor Represents 5 Points: None Total Score 5 Point Risk Factors: 0 Venous Thromboembolism Risk Factor Score *Q: 4 Problem List Initiated/Reviewed/Updated: Yes Orders Last 24hrs: Active Orders 24 hr Category Date Time Status Patient Status Manage Transfer [TRANSFER] Routine ADT 06/02/21 19:59 Ordered Cardiac Monitoring [RC] .As Directed Care 06/02/21 10:25 Active RT Aerosol Therapy [RC] ASDIRECTED Care 06/02/21 10:28 Active Chest 1V Frontal [CR] Stat Exams 06/02/21 10:27 Taken Isolation [COMM] Stat Oth 06/02/21 10:30 Ordered Resuscitation Status Routine Resus Stat 06/02/21 20:01 Ordered Assessment/Plan Comment:: ASSESSMENT AND PLAN PULMONARY EDEMA-onset over the last 36 hours with increased shortness of breath and an episode of chest pain last night. Troponin level obtained today is within normal range. No previous history of congestive heart failure, she does have a known history of atrial fibrillation. Recent hospitalization for GI bleed and her anticoagulation was held. She was treated with sequential compression devices during that hospital stay. BNP obtained in the emergency department elevated and chest x-ray shows evidence of pulmonary edema -IV furosemide, 2 doses given in the emergency department, reassess in a.m. -Cardiac monitoring -Echocardiogram in a.m. -CT angiogram of the chest tonight ATRIAL FIBRILLATION-rate has been well controlled on current therapy -Continue outpatient medication with metoprolol -Anticoagulation on hold because of recent GI bleed GASTRIC ULCER WITH RECENT UPPER GI BLEED-no evidence of active bleeding at the present time, hemoglobin is stable from discharge -Continue Protonix twice daily COPD-no evidence of acute exacerbation -Continue outpatient medications MAINTENANCE ISSUES -DVT prophylaxis; sequential compression device, hold on anticoagulation because of recent bleeding -GI prophylaxis; Protonix as above -Bardales catheter; not indicated -Nutrition; 2 g sodium diet -Nicotinic dependence; not required CODE STATUS-FULL CODE ADMISSION STATUS-this patient will be admitted to observation status, expect no more than a one night hospital stay for evaluation and management of problems as outlined above. DISPOSITION-anticipate discharge to home after the hospital stay. PRIMARY CARE PROVIDER-Dr. Coronado - Mortality Measure Prognosis:: Good
[2021-06-02] MEDS ORDERED: Iopamidol 755 Mg/ML 100 ML Bottle IV ONE (21:30)
[2021-06-02] MEDS ORDERED: Sodium Chloride 0.9% 10 ML Syringe FLUSH ONE (21:40)
[2021-06-02] MEDS ORDERED: Sodium Chloride 0.9% 80 ML IV SCH (21:45)
[2021-06-02] MEDS ORDERED: Iopamidol 755 Mg/ML 100 ML Bottle IV SCH (21:45)
[2021-06-02] MEDS ORDERED: Albuterol 8 GM Inhaler INH PRN ×2 (22:19→23:17)
[2021-06-02] MEDS ORDERED: Acetaminophen 325 MG Tab PO PRN (22:19)
[2021-06-02] MEDS ORDERED: Polyethylene Glycol 3350 Powder 17 GM Packet PO PRN (22:19)
[2021-06-02] MEDS ORDERED: Sodium Chloride 0.9% 10 ML Syringe FLUSH PRN (22:19)
[2021-06-02] MEDS ORDERED: Ondansetron 4 MG/2 ML SDV IV PRN (22:19)
[2021-06-02] MEDS ORDERED: Albuterol/Ipratropium 3.0-0.5 MG/3 ML Neb Soln NEB PRN (22:19)
--- NOTE | 2021-06-02 23:04 | CRLCT ---
For Patients: As a result of the Century Cures Act, medical imaging exams and procedure reports are released immediately into your electronic medical record. You may view this report before your referring provider. If you have questions, please contact your health care provider. INDICATION: Dyspnea, hypoxia TECHNIQUE: CT chest pulmonary PE protocol acquired with 55 cc Isovue 370 IV contrast. COMPARISON: May 31, 2019 FINDINGS: Cardiovascular structures: Normal vascular enhancement of the pulmonary arteries, no sign of pulmonary embolism. Cardiomegaly. Coronary artery calcifications. No sign of aneurysm in the thoracic aorta. Mediastinum and anthony: No mass or adenopathy. Fluid in the esophagus up to the level of the thoracic inlet. Lungs: Scattered ground-glass opacities throughout the lungs. Several bilateral pulmonary nodules measuring up to 7 mm in size. Pleura and pericardium: Small bilateral effusions. Chest wall and axilla: No mass or adenopathy. Upper abdomen: Unremarkable. Bones: No significant findings. IMPRESSION: No pulmonary embolism. Diffuse ground-glass opacities throughout the lungs likely represent infection. COVID-19 should be considered. Multiple bilateral pulmonary nodules. These are grossly stable compared to the prior study. Cardiomegaly with coronary artery disease. Small bilateral pleural effusions. Fluid in the esophagus up to the level of the thoracic inlet. This suggests gastroesophageal reflux disease. Please note that all CT scans at this facility use dose modulation, iterative reconstruction, and/or weight-based dosing when appropriate to reduce radiation dose to as low as reasonably achievable. Dictated by Belinda Rico MD @ 06/02/2021 11:03:45 PM (Electronically Signed)
[2021-06-02] MEDS: Metoprolol Tartrate 25 MG Tab PO SCH (23:44)
[2021-06-03] MEDS ORDERED: Vancomycin 1 GM SDV IV SCH (01:00)
[2021-06-03] MEDS ORDERED: Water For Injection, Sterile 20 ML ONE (01:01)
[2021-06-03] MEDS: Piperacillin/Tazobactam 3.375 GM in Sodium Chloride 0.9% 50 ML IV SCH ×2 (01:05→08:36)
[2021-06-03] MEDS ORDERED: Pantoprazole 40 MG Tab.CR PO ONE (07:30)
[2021-06-03] MEDS: Pantoprazole 40 MG Tab.CR PO SCH ×2 (07:41→15:50)
[2021-06-03] MEDS ORDERED: Potassium Chloride 20 MEQ Tab.ER PO ONE (08:30)
[2021-06-03] MEDS ORDERED: Levofloxacin/Dextrose 5%-Water 750 MG in Premix Bag 1 BAG IV SCH (08:30)
[2021-06-03] MEDS: Metoprolol Tartrate 25 MG Tab PO SCH ×2 (08:47→22:13)
[2021-06-03] MEDS: Formoterol/Mometasone 100-5 MCG 8.8 GM Inhaler IH SCH ×2 (08:53→22:10)
[2021-06-03] MEDS ORDERED: Non-Formulary Medication 1 Each (Fluticasone/Vilanterol 1 EACH Each) INH SCH (09:00)
[2021-06-03] MEDS ORDERED: Formoterol/Mometasone 100-5 MCG 8.8 GM Inhaler IH SCH (09:00)
[2021-06-03] MEDS ORDERED: diphenhydrAMINE 25 MG/10 ML Cup PO PRN (09:30)
--- NOTE | 2021-06-03 09:40 | CR ---
CHEST: Portable 06/02/2021 at 11:19 AM CLINICAL HISTORY:Chest pain COMPARISON:CT 2019 FINDINGS: There are diffuse emphysematous changes. Patient has patchy diffuse bilateral infiltrates superimposed over some pleural parenchymal scarring and nodularity which is seen on prior CT. Heart is enlarged. Pulmonary vascularity is normal. There are no effusions. IMPRESSION: Advanced changes of COPD Scattered patchy infiltrates and superimposed pleural parenchymal scarring and scattered nodularity. Cardiomegaly
[2021-06-03] MEDS: Azithromycin 250 MG Tab PO SCH (09:43)
[2021-06-03] MEDS: cefTRIAXone 1 GM in Sodium Chloride 0.9% 50 ML IV SCH (11:13)
--- NOTE | 2021-06-03 13:06 | PCM.PN ---
- General Info Date of Service: 06/03/21 Subjective Update: No acute events overnight. Feels about the same as yesterday. Still requiring supplemental oxygen. Intermittent cough. Short of breath with any activity. Weak. Not much of an appetite. No fevers overnight. Tolerating antibiotics. Functional Status: Reports: Pain Controlled, Tolerating Diet - Review of Systems General: Reports: Weakness Pulmonary: Reports: Shortness of Breath - Patient Data Vitals - Most Recent: Last Vital Signs Temp 36.6 C 06/03/21 11:41 Pulse 77 06/03/21 11:41 Resp 18 06/03/21 11:41 BP 101/52 L 06/03/21 11:41 Pulse Ox 97 06/03/21 11:41 Weight - Most Recent: 52.163 kg I&O - Last 24 Hours: Intake & Output 06/02/21 06/03/21 06/03/21 22:59 06:59 14:59 Intake Total 300 400 Output Total 2050 350 300 Balance -2049 -50 100 Lab Results Last 24 Hours: Laboratory Results - last 24 hr 06/02/21 06/02/21 06/02/21 Range/Units 17:10 17:10 17:12 Sodium (140-148) mmol/L Potassium 3.3 L (3.6-5.2) mmol/L Chloride (100-108) mmol/L Carbon Dioxide (21-32) mmol/L Anion Gap (5.0-14.0) mmol/L BUN (7-18) mg/dL Creatinine (0.6-1.0) mg/dL Est Cr Clr Drug Dosing mL/min Estimated GFR (MDRD) (>60) Glucose (74-106) mg/dL Calcium (8.5-10.1) mg/dL C-Reactive Protein 3.92 H (0.0-0.3) mg/dL Procalcitonin 0.51 ng/mL 06/03/21 Range/Units 05:59 Sodium 142 (140-148) mmol/L Potassium 3.5 L (3.6-5.2) mmol/L Chloride 104 (100-108) mmol/L Carbon Dioxide 31 (21-32) mmol/L Anion Gap 10.5 (5.0-14.0) mmol/L BUN 14 (7-18) mg/dL Creatinine 0.6 (0.6-1.0) mg/dL Est Cr Clr Drug Dosing 55.42 mL/min Estimated GFR (MDRD) > 60 (>60) Glucose 101 (74-106) mg/dL Calcium 8.2 L (8.5-10.1) mg/dL C-Reactive Protein (0.0-0.3) mg/dL Procalcitonin ng/mL Med Orders - Current: Current Medications Acetaminophen (Acetaminophen 325 Mg Tab) 650 mg PO Q4H PRN PRN Reason: Pain (Mild 1-3)/fever Albuterol (Albuterol 8 Gm Inhaler) 0 gm INH Q4H PRN PRN Reason: Dyspnea Albuterol/Ipratropium (Albuterol/Ipratropium 3.0-0.5 Mg/3 Ml Neb Soln) 3 ml NEB QID PRN PRN Reason: Shortness Of Breath/wheezing Azithromycin (Azithromycin 250 Mg Tab) 500 mg PO DAILY [facility] Last Admin: 06/03/21 09:43 Dose: 500 mg Documented by: Diphenhydramine HCl (Diphenhydramine 25 Mg/10 Ml Cup) 12.5 mg PO Q6H PRN PRN Reason: Itching Last Admin: 06/03/21 09:43 Dose: 12.5 mg Documented by: Vancomycin HCl 1 gm/ Sodium (Chloride) 250 mls @ 166.667 mls/hr IV Q12H [facility] Ceftriaxone Sodium 1 gm/ (Sodium Chloride) 50 mls @ 100 mls/hr IV Q24H [facility] Last Admin: 06/03/21 11:13 Dose: 100 mls/hr Documented by: Metoprolol Tartrate (Metoprolol Tartrate 25 Mg Tab) 25 mg PO BID [facility] Last Admin: 06/03/21 08:47 Dose: 25 mg Documented by: Mometasone Furoate/Formoterol Fumar (Formoterol/Mometasone 100-5 Mcg 8.8 Gm Inhaler) 2 puff IH BIDRT [facility] Last Admin: 06/03/21 08:53 Dose: 2 puff Documented by: Ondansetron HCl (Ondansetron 4 Mg/2 Ml Sdv) 4 mg IV Q4H PRN PRN Reason: Nausea/Vomiting Pantoprazole Sodium (Pantoprazole 40 Mg Tab.Cr) 40 mg PO BIDAC [facility] Stop: 06/11/21 16:31 Last Admin: 06/03/21 07:41 Dose: 40 mg Documented by: Pantoprazole Sodium (Pantoprazole 40 Mg Tab.Cr) 40 mg PO DAILY@0730 [facility] Polyethylene Glycol (Polyethylene Glycol 3350 Powder 17 Gm Packet) 17 gm PO DAILY PRN PRN Reason: Constipation Sodium Chloride (Sodium Chloride 0.9% 10 Ml Syringe) 10 ml FLUSH ASDIRECTED PRN PRN Reason: Keep Vein Open Discontinued Medications Albuterol (Albuterol 8 Gm Inhaler) gm INH ASDIRECTED PRN PRN Reason: Dyspnea Albuterol/Ipratropium (Albuterol/Ipratropium 3.0-0.5 Mg/3 Ml Neb Soln) 3 ml NEB ONETIME ONE Stop: 06/02/21 10:29 Last Admin: 06/02/21 11:02 Dose: 3 ml Documented by: Aspirin (Aspirin 81 Mg Tab.Chew) 324 mg PO ONETIME ONE Stop: 06/02/21 10:25 Last Admin: 06/02/21 11:01 Dose: 324 mg Documented by: Furosemide (Furosemide 40 Mg/4 Ml Vial) 40 mg IVPUSH ONETIME ONE Stop: 06/02/21 11:21 Last Admin: 06/02/21 11:28 Dose: 40 mg Documented by: Furosemide (Furosemide 40 Mg/4 Ml Vial) 40 mg IVPUSH ONETIME ONE Stop: 06/02/21 16:49 Last Admin: 06/02/21 17:03 Dose: 40 mg Documented by: Potassium Chloride 20 meq/ (Premix) 100 mls @ 50 mls/hr IV ONETIME ONE Stop: 06/02/21 19:43 Last Admin: 06/02/21 18:45 Dose: 50 mls/hr Documented by: Sodium Chloride (Normal Saline) 80 mls @ 3.5 mls/sec IV ASDIRECTED [facility] Last Admin: 06/02/21 22:05 Dose: 3.5 mls/sec Documented by: Piperacillin Sod/Tazobactam (Sod 3.375 gm/ Sodium Chloride) 50 mls @ 100 mls/hr IV Q6H [facility] Last Admin: 06/03/21 08:36 Dose: Not Given Documented by: Vancomycin HCl 0.75 gm/ Sodium (Chloride) 250 mls @ 166.667 mls/hr IV Q12H [facility] Last Admin: 06/03/21 01:38 Dose: 166.667 mls/hr Documented by: Sterile Water (Sterile Water For Injection) Confirm Administered Dose 20 mls @ as directed .ROUTE .STK-MED ONE Stop: 06/03/21 01:02 Last Admin: 06/03/21 01:24 Dose: Not Given Documented by: Levofloxacin/Dextrose 750 mg/ (Premix) 150 mls @ 100 mls/hr IV Q24H [facility] Last Admin: 06/03/21 08:44 Dose: 100 mls/hr Documented by: Iopamidol (Iopamidol 755 Mg/Ml 100 Ml Bottle) 55 ml IV . DIRECTED ONE Stop: 06/02/21 21:31 Last Admin: 06/02/21 22:05 Dose: 55 ml Documented by: Lidocaine HCl (Lidocaine 1% 5 Ml Sdv) 2 ml INJECT ONETIME ONE Stop: 06/02/21 18:18 Last Admin: 06/02/21 18:45 Dose: 2 ml Documented by: Potassium Chloride (Potassium Chloride 20 Meq Tab.Er) 40 meq PO ONETIME ONE Stop: 06/02/21 17:45 Last Admin: 06/02/21 18:21 Dose: 40 meq Documented by: Potassium Chloride (Potassium Chloride 20 Meq Tab.Er) 40 meq PO ONETIME ONE Stop: 06/03/21 08:31 Last Admin: 06/03/21 08:44 Dose: 40 meq Documented by: Sodium Chloride (Sodium Chloride 0.9% 10 Ml Syringe) 10 ml FLUSH ONETIME ONE Stop: 06/02/21 21:41 Last Admin: 06/02/21 23:38 Dose: Not Given Documented by: Vancomycin HCl (Vancomycin 1 Gm Sdv) 0 gm IV .PHARMACY TO DOSE BENNETT Stop: 06/03/21 08:00 - Exam Quality Assessment: Supplemental Oxygen General: Alert, Oriented, Cooperative, No Acute Distress Lungs: Normal Respiratory Effort, Crackles (few both bases). No: Wheezing Cardiovascular: Regular Rate, Regular Rhythm, Murmurs GI/Abdominal Exam: Soft, No Distention Extremities: No Pedal Edema. No: Increased Warmth Skin: Warm, Dry Psy/Mental Status: Alert, Normal Affect - Patient Data Lab Results Last 24 hrs: Laboratory Results - last 24 hr 06/02/21 06/02/21 06/02/21 Range/Units 17:10 17:10 17:12 Sodium (140-148) mmol/L Potassium 3.3 L (3.6-5.2) mmol/L Chloride (100-108) mmol/L Carbon Dioxide (21-32) mmol/L Anion Gap (5.0-14.0) mmol/L BUN (7-18) mg/dL Creatinine (0.6-1.0) mg/dL Est Cr Clr Drug Dosing mL/min Estimated GFR (MDRD) (>60) Glucose (74-106) mg/dL Calcium (8.5-10.1) mg/dL C-Reactive Protein 3.92 H (0.0-0.3) mg/dL Procalcitonin 0.51 ng/mL 06/03/21 Range/Units 05:59 Sodium 142 (140-148) mmol/L Potassium 3.5 L (3.6-5.2) mmol/L Chloride 104 (100-108) mmol/L Carbon Dioxide 31 (21-32) mmol/L Anion Gap 10.5 (5.0-14.0) mmol/L BUN 14 (7-18) mg/dL Creatinine 0.6 (0.6-1.0) mg/dL Est Cr Clr Drug Dosing 55.42 mL/min Estimated GFR (MDRD) > 60 (>60) Glucose 101 (74-106) mg/dL Calcium 8.2 L (8.5-10.1) mg/dL C-Reactive Protein (0.0-0.3) mg/dL Procalcitonin ng/mL Result Diagrams: 06/02/21 10:41 06/03/21 05:59 Sepsis Event Note - Evaluation Sepsis Screening Result: No Definite Risk - Focused Exam Vital Signs: Vital Signs Temp Pulse Pulse Resp BP BP Pulse Ox 06/03/21 11:41 36.6 C 77 18 101/52 L 97 06/03/21 08:47 82 116/53 L 06/03/21 07:29 36.3 C 82 16 116/53 L 97 06/03/21 03:11 36.3 C 87 16 105/47 L 93 L - Problem List Review Problem List Initiated/Reviewed/Updated: Yes - My Orders Last 24 Hours: My Active Orders 06/03/21 09:30 diphenhydrAMINE [Benadryl] 12.5 mg PO Q6H PRN 06/03/21 10:00 Azithromycin [Zithromax] 500 mg PO DAILY 06/03/21 10:30 cefTRIAXone [Rocephin] 1 gm Sodium Chloride 0.9% [Normal Saline AdvBag] 50 ml IV Q24H 06/03/21 11:56 Admission Status [Patient Status] [ADT] Routine 06/03/21 11:59 Resuscitation Status Routine 06/04/21 05:00 BASIC METABOLIC PANEL,BMP [CHEM] Timed CBC W/O DIFF,HEMOGRAM [HEME] Timed (1) - Plan Plan:: ASSESSMENT AND PLAN - ATYPICAL PNEUMONIA, SUSPECTED-initially this was thought to be a pulmonary edema type picture and there may have been a component but most likely this is because of infection. Seems to be a viral versus atypical bacterial infection. White count is normal but procalcitonin is moderately elevated. Has not improved much with excellent diuresis. She did have a reaction to levofloxacin this morning. CT scan of the chest last night suggested some patchy infiltrates. -Antibiotic coverage with azithromycin and ceftriaxone -Cardiac monitoring -Echocardiogram in a.m. -Supplemental oxygen, wean as able -Physical therapy for strengthening ATRIAL FIBRILLATION-rate has been well controlled. -Continue outpatient medication with metoprolol -Anticoagulation on hold because of recent GI bleed GASTRIC ULCER WITH RECENT UPPER GI BLEED-no evidence of active bleeding at the present time, hemoglobin is stable. -Continue Protonix twice daily COPD-no evidence of acute exacerbation -Continue outpatient medications MAINTENANCE ISSUES -DVT prophylaxis; sequential compression device, hold on anticoagulation because of recent bleeding -GI prophylaxis; Protonix as above -Bardales catheter; not indicated -Nutrition; 2 g sodium diet ADMISSION STATUS-this patient was initially admitted to observation status. She will be transitioned to inpatient status given pneumonia and hypoxic respiratory failure. DISPOSITION-anticipate discharge to home after the hospital stay. Dennys Grimm MD
[2021-06-04] MEDS: Formoterol/Mometasone 100-5 MCG 8.8 GM Inhaler IH SCH ×2 (07:12→20:09)
[2021-06-04] MEDS: Pantoprazole 40 MG Tab.CR PO SCH ×2 (07:24→16:16)
[2021-06-04] MEDS: Azithromycin 250 MG Tab PO SCH (08:38)
[2021-06-04] MEDS: Metoprolol Tartrate 25 MG Tab PO SCH ×2 (08:44→20:10)
[2021-06-04] MEDS: cefTRIAXone 1 GM in Sodium Chloride 0.9% 50 ML IV SCH (10:08)
--- NOTE | 2021-06-04 11:32 | PCM.PN ---
- General Info Date of Service: 06/04/21 Subjective Update: No acute events overnight. Vital signs have been stable. Supplemental oxygen is down to 1 L this morning. She thinks that maybe she feels a little less short of breath. Still short of breath with activity. She had some lightheadedness this morning that seems to have gotten better without any specific intervention. She is complaining of some right lateral knee pain that started this morning. This too was getting better. She noticed it when walking to the bathroom and back. Functional Status: Reports: Pain Controlled, Tolerating Diet - Review of Systems General: Reports: Weakness Pulmonary: Reports: Shortness of Breath Musculoskeletal: Reports: Joint Pain (right knee) - Patient Data Vitals - Most Recent: Last Vital Signs Temp 35.9 C L 06/04/21 07:20 Pulse 89 06/04/21 08:44 Resp 18 06/04/21 07:20 BP 104/55 L 06/04/21 08:44 Pulse Ox 97 06/04/21 07:20 Weight - Most Recent: 53.9 kg I&O - Last 24 Hours: Intake & Output 06/03/21 06/04/21 06/04/21 22:59 06:59 14:59 Intake Total 830 350 Balance 830 350 Lab Results Last 24 Hours: Laboratory Results - last 24 hr 06/04/21 06/04/21 Range/Units 05:35 05:35 WBC 6.0 (4.5-11.0) K/uL RBC 2.56 L (3.30-5.50) M/uL Hgb 7.9 L (12.0-15.0) g/dL Hct 26.0 L (36.0-48.0) % MCV 102 H (80-98) fL MCH 31 (27-31) pg MCHC 30 L (32-36) % Plt Count 309 (150-400) K/uL Sodium 141 (140-148) mmol/L Potassium 4.1 (3.6-5.2) mmol/L Chloride 103 (100-108) mmol/L Carbon Dioxide 32 (21-32) mmol/L Anion Gap 5.8 (5.0-14.0) mmol/L BUN 14 (7-18) mg/dL Creatinine 0.5 L (0.6-1.0) mg/dL Est Cr Clr Drug Dosing 68.72 mL/min Estimated GFR (MDRD) > 60 (>60) Glucose 99 (74-106) mg/dL Calcium 7.9 L (8.5-10.1) mg/dL Tre Results Last 24 Hours: Microbiology 06/03/21 00:50 Aerobic Blood Culture - Preliminary Blood - Arm, Left NO GROWTH AFTER 1 DAY Anaerobic Blood Culture - Preliminary NO GROWTH AFTER 1 DAY 06/03/21 00:45 Aerobic Blood Culture - Preliminary Blood - Arm, Left NO GROWTH AFTER 1 DAY Anaerobic Blood Culture - Preliminary NO GROWTH AFTER 1 DAY Med Orders - Current: Current Medications Acetaminophen (Acetaminophen 325 Mg Tab) 650 mg PO Q4H PRN PRN Reason: Pain (Mild 1-3)/fever Last Admin: 06/04/21 05:12 Dose: 650 mg Documented by: Albuterol (Albuterol 8 Gm Inhaler) 0 gm INH Q4H PRN PRN Reason: Dyspnea Albuterol/Ipratropium (Albuterol/Ipratropium 3.0-0.5 Mg/3 Ml Neb Soln) 3 ml NEB QID PRN PRN Reason: Shortness Of Breath/wheezing Azithromycin (Azithromycin 250 Mg Tab) 500 mg PO DAILY [facility] Last Admin: 06/04/21 08:38 Dose: 500 mg Documented by: Diphenhydramine HCl (Diphenhydramine 25 Mg/10 Ml Cup) 12.5 mg PO Q6H PRN PRN Reason: Itching Last Admin: 06/03/21 09:43 Dose: 12.5 mg Documented by: Ceftriaxone Sodium 1 gm/ (Sodium Chloride) 50 mls @ 100 mls/hr IV Q24H [facility] Last Admin: 06/04/21 10:08 Dose: 100 mls/hr Documented by: Metoprolol Tartrate (Metoprolol Tartrate 25 Mg Tab) 25 mg PO BID [facility] Last Admin: 06/04/21 08:44 Dose: 25 mg Documented by: Mometasone Furoate/Formoterol Fumar (Formoterol/Mometasone 100-5 Mcg 8.8 Gm Inhaler) 2 puff IH BIDRT [facility] Last Admin: 06/04/21 07:12 Dose: 2 puff Documented by: Ondansetron HCl (Ondansetron 4 Mg/2 Ml Sdv) 4 mg IV Q4H PRN PRN Reason: Nausea/Vomiting Pantoprazole Sodium (Pantoprazole 40 Mg Tab.Cr) 40 mg PO BIDAC [facility] Stop: 06/11/21 16:31 Last Admin: 06/04/21 07:24 Dose: 40 mg Documented by: Pantoprazole Sodium (Pantoprazole 40 Mg Tab.Cr) 40 mg PO DAILY@0730 [facility] Polyethylene Glycol (Polyethylene Glycol 3350 Powder 17 Gm Packet) 17 gm PO DAILY PRN PRN Reason: Constipation Sodium Chloride (Sodium Chloride 0.9% 10 Ml Syringe) 10 ml FLUSH ASDIRECTED PRN PRN Reason: Keep Vein Open Discontinued Medications Albuterol (Albuterol 8 Gm Inhaler) gm INH ASDIRECTED PRN PRN Reason: Dyspnea Albuterol/Ipratropium (Albuterol/Ipratropium 3.0-0.5 Mg/3 Ml Neb Soln) 3 ml NEB ONETIME ONE Stop: 06/02/21 10:29 Last Admin: 06/02/21 11:02 Dose: 3 ml Documented by: Aspirin (Aspirin 81 Mg Tab.Chew) 324 mg PO ONETIME ONE Stop: 06/02/21 10:25 Last Admin: 06/02/21 11:01 Dose: 324 mg Documented by: Furosemide (Furosemide 40 Mg/4 Ml Vial) 40 mg IVPUSH ONETIME ONE Stop: 06/02/21 11:21 Last Admin: 06/02/21 11:28 Dose: 40 mg Documented by: Furosemide (Furosemide 40 Mg/4 Ml Vial) 40 mg IVPUSH ONETIME ONE Stop: 06/02/21 16:49 Last Admin: 06/02/21 17:03 Dose: 40 mg Documented by: Potassium Chloride 20 meq/ (Premix) 100 mls @ 50 mls/hr IV ONETIME ONE Stop: 06/02/21 19:43 Last Admin: 06/02/21 18:45 Dose: 50 mls/hr Documented by: Sodium Chloride (Normal Saline) 80 mls @ 3.5 mls/sec IV ASDIRECTED [facility] Last Admin: 06/02/21 22:05 Dose: 3.5 mls/sec Documented by: Piperacillin Sod/Tazobactam (Sod 3.375 gm/ Sodium Chloride) 50 mls @ 100 mls/hr IV Q6H [facility] Last Admin: 06/03/21 08:36 Dose: Not Given Documented by: Vancomycin HCl 0.75 gm/ Sodium (Chloride) 250 mls @ 166.667 mls/hr IV Q12H [facility] Last Admin: 06/03/21 01:38 Dose: 166.667 mls/hr Documented by: Sterile Water (Sterile Water For Injection) Confirm Administered Dose 20 mls @ as directed .ROUTE .STK-MED ONE Stop: 06/03/21 01:02 Last Admin: 06/03/21 01:24 Dose: Not Given Documented by: Vancomycin HCl 1 gm/ Sodium (Chloride) 250 mls @ 166.667 mls/hr IV Q12H [facility] Last Admin: 06/04/21 01:03 Dose: 166.667 mls/hr Documented by: Levofloxacin/Dextrose 750 mg/ (Premix) 150 mls @ 100 mls/hr IV Q24H [facility] Last Admin: 06/03/21 08:44 Dose: 100 mls/hr Documented by: Iopamidol (Iopamidol 755 Mg/Ml 100 Ml Bottle) 55 ml IV . DIRECTED ONE Stop: 06/02/21 21:31 Last Admin: 06/02/21 22:05 Dose: 55 ml Documented by: Lidocaine HCl (Lidocaine 1% 5 Ml Sdv) 2 ml INJECT ONETIME ONE Stop: 06/02/21 18:18 Last Admin: 06/02/21 18:45 Dose: 2 ml Documented by: Potassium Chloride (Potassium Chloride 20 Meq Tab.Er) 40 meq PO ONETIME ONE Stop: 06/02/21 17:45 Last Admin: 06/02/21 18:21 Dose: 40 meq Documented by: Potassium Chloride (Potassium Chloride 20 Meq Tab.Er) 40 meq PO ONETIME ONE Stop: 06/03/21 08:31 Last Admin: 06/03/21 08:44 Dose: 40 meq Documented by: Sodium Chloride (Sodium Chloride 0.9% 10 Ml Syringe) 10 ml FLUSH ONETIME ONE Stop: 06/02/21 21:41 Last Admin: 06/02/21 23:38 Dose: Not Given Documented by: Vancomycin HCl (Vancomycin 1 Gm Sdv) 0 gm IV .PHARMACY TO DOSE [facility] Stop: 06/03/21 08:00 - Exam Quality Assessment: Supplemental Oxygen General: Alert, Oriented, Cooperative, No Acute Distress Lungs: Clear to Auscultation, Normal Respiratory Effort. No: Wheezing Cardiovascular: Regular Rate, Regular Rhythm GI/Abdominal Exam: Soft, No Distention Extremities: No Pedal Edema, Joint Swelling (very mild right lateral knee ). No: Increased Warmth (no warmth right knee ) Skin: Warm, Dry. No: Rash (no redness right knee ) Psy/Mental Status: Alert, Normal Affect - Patient Data Lab Results Last 24 hrs: Laboratory Results - last 24 hr 06/04/21 06/04/21 Range/Units 05:35 05:35 WBC 6.0 (4.5-11.0) K/uL RBC 2.56 L (3.30-5.50) M/uL Hgb 7.9 L (12.0-15.0) g/dL Hct 26.0 L (36.0-48.0) % MCV 102 H (80-98) fL MCH 31 (27-31) pg MCHC 30 L (32-36) % Plt Count 309 (150-400) K/uL Sodium 141 (140-148) mmol/L Potassium 4.1 (3.6-5.2) mmol/L Chloride 103 (100-108) mmol/L Carbon Dioxide 32 (21-32) mmol/L Anion Gap 5.8 (5.0-14.0) mmol/L BUN 14 (7-18) mg/dL Creatinine 0.5 L (0.6-1.0) mg/dL Est Cr Clr Drug Dosing 68.72 mL/min Estimated GFR (MDRD) > 60 (>60) Glucose 99 (74-106) mg/dL Calcium 7.9 L (8.5-10.1) mg/dL Result Diagrams: 06/04/21 05:35 06/04/21 05:35 Tre Results Last 24 hrs: Microbiology 06/03/21 00:50 Aerobic Blood Culture - Preliminary Blood - Arm, Left NO GROWTH AFTER 1 DAY Anaerobic Blood Culture - Preliminary NO GROWTH AFTER 1 DAY 06/03/21 00:45 Aerobic Blood Culture - Preliminary Blood - Arm, Left NO GROWTH AFTER 1 DAY Anaerobic Blood Culture - Preliminary NO GROWTH AFTER 1 DAY Sepsis Event Note - Evaluation Sepsis Screening Result: No Definite Risk - Focused Exam Vital Signs: Vital Signs Temp Pulse Pulse Resp BP BP Pulse Ox 06/04/21 08:44 89 104/55 L 06/04/21 07:20 35.9 C L 89 18 104/55 L 97 06/04/21 04:00 36.0 C L 80 - Problem List Review Problem List Initiated/Reviewed/Updated: Yes - My Orders Last 24 Hours: My Active Orders 06/03/21 11:56 Admission Status [Patient Status] [ADT] Routine 06/03/21 11:59 Resuscitation Status Routine 06/04/21 08:14 Discontinue Telemetry Monitoring [Cardiac Monitoring Discontinue] [RC] Click to Edit 06/04/21 10:39 PT Evaluation and Treatment [CONS] Routine 06/04/21 10:40 OT Evaluation and Treatment [CONS] Routine 06/04/21 11:30 Trolamine Salicylate/Aloe Vera [Aspercreme 10%] 1 gm TOP Q1H PRN 06/05/21 05:00 CBC W/O DIFF,HEMOGRAM [HEME] Timed (1) CRP [C-REACTIVE PROTEIN] [CHEM] Timed - Plan Plan:: ASSESSMENT AND PLAN - ATYPICAL PNEUMONIA, SUSPECTED-initially this was thought to be a pulmonary edema type picture but now suspect viral versus atypical bacterial infection. White count is normal but procalcitonin is moderately elevated. Seems to be slowly improving. Cultures negative so far. Echocardiogram unremarkable yesterday. -Antibiotic coverage with azithromycin and ceftriaxone -Discontinue cardiac monitoring -Supplemental oxygen, wean as able -Physical therapy for strengthening ATRIAL FIBRILLATION-rate has been well controlled. -Continue outpatient medication with metoprolol -Anticoagulation on hold because of recent GI bleed GASTRIC ULCER WITH RECENT UPPER GI BLEED-no evidence of active bleeding at the present time. Hemoglobin slightly lower today, possibly dilutional. -Recheck in the morning -Continue Protonix twice daily COPD-no evidence of acute exacerbation -Continue outpatient medications MAINTENANCE ISSUES -DVT prophylaxis; sequential compression device, hold on anticoagulation because of recent bleeding -GI prophylaxis; Protonix as above -Bardales catheter; not indicated -Nutrition; 2 g sodium diet DISPOSITION-anticipate discharge to home after the hospital stay. Dennys Grimm MD
[2021-06-04] MEDS: Trolamine Salicylate/Aloe Vera 10% Crm 85 GM Tube TOP PRN (14:33)
[2021-06-05] MEDS: Pantoprazole 40 MG Tab.CR PO SCH ×2 (07:19→16:26)
[2021-06-05] MEDS: Formoterol/Mometasone 100-5 MCG 8.8 GM Inhaler IH SCH ×2 (07:28→20:16)
[2021-06-05] MEDS: Azithromycin 250 MG Tab PO SCH (09:58)
[2021-06-05] MEDS: Metoprolol Tartrate 25 MG Tab PO SCH ×2 (10:17→20:17)
[2021-06-05] MEDS: cefTRIAXone 1 GM in Sodium Chloride 0.9% 50 ML IV SCH (10:58)
--- NOTE | 2021-06-05 14:27 | PCM.PN ---
- General Info Date of Service: 06/05/21 Subjective Update: No acute events overnight. Respiratory status slowly improving. Down to 1/2 L of oxygen this morning. Shortness of breath is slightly better and probably close to baseline. No melena has been noted. Appetite okay. Strength slowly improving. Cultures negative. Functional Status: Reports: Pain Controlled, Tolerating Diet - Review of Systems General: Reports: Weakness Pulmonary: Reports: Shortness of Breath - Patient Data Vitals - Most Recent: Last Vital Signs Temp 36.1 C 06/05/21 11:00 Pulse 88 06/05/21 11:00 Resp 16 06/05/21 11:00 BP 115/43 L 06/05/21 11:00 Pulse Ox 98 06/05/21 11:00 Weight - Most Recent: 53.7 kg I&O - Last 24 Hours: Intake & Output 06/04/21 06/05/21 06/05/21 22:59 06:59 14:59 Intake Total 1250 50 Balance 1250 50 Lab Results Last 24 Hours: Laboratory Results - last 24 hr 06/05/21 06/05/21 Range/Units 04:17 04:17 WBC 5.9 (4.5-11.0) K/uL RBC 2.63 L (3.30-5.50) M/uL Hgb 8.0 L (12.0-15.0) g/dL Hct 26.6 L (36.0-48.0) % MCV 101 H (80-98) fL MCH 30 (27-31) pg MCHC 30 L (32-36) % Plt Count 304 (150-400) K/uL C-Reactive Protein 2.11 H (0.0-0.3) mg/dL Tre Results Last 24 Hours: Microbiology 06/03/21 00:45 Aerobic Blood Culture - Preliminary Blood - Arm, Left NO GROWTH AFTER 2 DAYS Anaerobic Blood Culture - Preliminary NO GROWTH AFTER 2 DAYS 06/03/21 00:50 Aerobic Blood Culture - Preliminary Blood - Arm, Left NO GROWTH AFTER 2 DAYS Anaerobic Blood Culture - Preliminary NO GROWTH AFTER 2 DAYS Med Orders - Current: Current Medications Acetaminophen (Acetaminophen 325 Mg Tab) 650 mg PO Q4H PRN PRN Reason: Pain (Mild 1-3)/fever Last Admin: 06/04/21 05:12 Dose: 650 mg Documented by: Albuterol (Albuterol 8 Gm Inhaler) 0 gm INH Q4H PRN PRN Reason: Dyspnea Albuterol/Ipratropium (Albuterol/Ipratropium 3.0-0.5 Mg/3 Ml Neb Soln) 3 ml NEB QID PRN PRN Reason: Shortness Of Breath/wheezing Azithromycin (Azithromycin 250 Mg Tab) 500 mg PO DAILY [facility] Last Admin: 06/05/21 09:58 Dose: 500 mg Documented by: Diphenhydramine HCl (Diphenhydramine 25 Mg/10 Ml Cup) 12.5 mg PO Q6H PRN PRN Reason: Itching Last Admin: 06/03/21 09:43 Dose: 12.5 mg Documented by: Ceftriaxone Sodium 1 gm/ (Sodium Chloride) 50 mls @ 100 mls/hr IV Q24H [facility] Last Admin: 06/05/21 10:58 Dose: 100 mls/hr Documented by: Metoprolol Tartrate (Metoprolol Tartrate 25 Mg Tab) 25 mg PO BID [facility] Last Admin: 06/05/21 10:17 Dose: Not Given Documented by: Mometasone Furoate/Formoterol Fumar (Formoterol/Mometasone 100-5 Mcg 8.8 Gm Inhaler) 2 puff IH BIDRT [facility] Last Admin: 06/05/21 07:28 Dose: 2 puff Documented by: Ondansetron HCl (Ondansetron 4 Mg/2 Ml Sdv) 4 mg IV Q4H PRN PRN Reason: Nausea/Vomiting Pantoprazole Sodium (Pantoprazole 40 Mg Tab.Cr) 40 mg PO BIDAC [facility] Stop: 06/11/21 16:31 Last Admin: 06/05/21 07:19 Dose: 40 mg Documented by: Pantoprazole Sodium (Pantoprazole 40 Mg Tab.Cr) 40 mg PO DAILY@0730 [facility] Polyethylene Glycol (Polyethylene Glycol 3350 Powder 17 Gm Packet) 17 gm PO DAILY PRN PRN Reason: Constipation Sodium Chloride (Sodium Chloride 0.9% 10 Ml Syringe) 10 ml FLUSH ASDIRECTED PRN PRN Reason: Keep Vein Open Trolamine Salicylate (Trolamine Salicylate/Aloe Vera 10% Crm 85 Gm Tube) 0 gm TOP Q1H PRN PRN Reason: knee pain Last Admin: 06/04/21 14:33 Dose: 1 applic Documented by: Discontinued Medications Albuterol (Albuterol 8 Gm Inhaler) gm INH ASDIRECTED PRN PRN Reason: Dyspnea Albuterol/Ipratropium (Albuterol/Ipratropium 3.0-0.5 Mg/3 Ml Neb Soln) 3 ml NEB ONETIME ONE Stop: 06/02/21 10:29 Last Admin: 06/02/21 11:02 Dose: 3 ml Documented by: Aspirin (Aspirin 81 Mg Tab.Chew) 324 mg PO ONETIME ONE Stop: 06/02/21 10:25 Last Admin: 06/02/21 11:01 Dose: 324 mg Documented by: Furosemide (Furosemide 40 Mg/4 Ml Vial) 40 mg IVPUSH ONETIME ONE Stop: 06/02/21 11:21 Last Admin: 06/02/21 11:28 Dose: 40 mg Documented by: Furosemide (Furosemide 40 Mg/4 Ml Vial) 40 mg IVPUSH ONETIME ONE Stop: 06/02/21 16:49 Last Admin: 06/02/21 17:03 Dose: 40 mg Documented by: Potassium Chloride 20 meq/ (Premix) 100 mls @ 50 mls/hr IV ONETIME ONE Stop: 06/02/21 19:43 Last Admin: 06/02/21 18:45 Dose: 50 mls/hr Documented by: Sodium Chloride (Normal Saline) 80 mls @ 3.5 mls/sec IV ASDIRECTED [facility] Last Admin: 06/02/21 22:05 Dose: 3.5 mls/sec Documented by: Piperacillin Sod/Tazobactam (Sod 3.375 gm/ Sodium Chloride) 50 mls @ 100 mls/hr IV Q6H [facility] Last Admin: 06/03/21 08:36 Dose: Not Given Documented by: Vancomycin HCl 0.75 gm/ Sodium (Chloride) 250 mls @ 166.667 mls/hr IV Q12H [facility] Last Admin: 06/03/21 01:38 Dose: 166.667 mls/hr Documented by: Sterile Water (Sterile Water For Injection) Confirm Administered Dose 20 mls @ as directed .ROUTE .STK-MED ONE Stop: 06/03/21 01:02 Last Admin: 06/03/21 01:24 Dose: Not Given Documented by: Vancomycin HCl 1 gm/ Sodium (Chloride) 250 mls @ 166.667 mls/hr IV Q12H [facility] Last Admin: 06/04/21 01:03 Dose: 166.667 mls/hr Documented by: Levofloxacin/Dextrose 750 mg/ (Premix) 150 mls @ 100 mls/hr IV Q24H [facility] Last Admin: 06/03/21 08:44 Dose: 100 mls/hr Documented by: Iopamidol (Iopamidol 755 Mg/Ml 100 Ml Bottle) 55 ml IV . DIRECTED ONE Stop: 06/02/21 21:31 Last Admin: 06/02/21 22:05 Dose: 55 ml Documented by: Lidocaine HCl (Lidocaine 1% 5 Ml Sdv) 2 ml INJECT ONETIME ONE Stop: 06/02/21 18:18 Last Admin: 06/02/21 18:45 Dose: 2 ml Documented by: Potassium Chloride (Potassium Chloride 20 Meq Tab.Er) 40 meq PO ONETIME ONE Stop: 06/02/21 17:45 Last Admin: 06/02/21 18:21 Dose: 40 meq Documented by: Potassium Chloride (Potassium Chloride 20 Meq Tab.Er) 40 meq PO ONETIME ONE Stop: 06/03/21 08:31 Last Admin: 06/03/21 08:44 Dose: 40 meq Documented by: Sodium Chloride (Sodium Chloride 0.9% 10 Ml Syringe) 10 ml FLUSH ONETIME ONE Stop: 06/02/21 21:41 Last Admin: 06/02/21 23:38 Dose: Not Given Documented by: Vancomycin HCl (Vancomycin 1 Gm Sdv) 0 gm IV .PHARMACY TO DOSE [facility] Stop: 06/03/21 08:00 - Exam Quality Assessment: Supplemental Oxygen General: Alert, Oriented, Cooperative, No Acute Distress Lungs: Normal Respiratory Effort, Crackles (rare both bases) Cardiovascular: Regular Rate, Regular Rhythm GI/Abdominal Exam: Soft, No Distention Extremities: No Pedal Edema. No: Increased Warmth Skin: Warm, Dry Psy/Mental Status: Alert, Normal Affect - Patient Data Lab Results Last 24 hrs: Laboratory Results - last 24 hr 06/05/21 06/05/21 Range/Units 04:17 04:17 WBC 5.9 (4.5-11.0) K/uL RBC 2.63 L (3.30-5.50) M/uL Hgb 8.0 L (12.0-15.0) g/dL Hct 26.6 L (36.0-48.0) % MCV 101 H (80-98) fL MCH 30 (27-31) pg MCHC 30 L (32-36) % Plt Count 304 (150-400) K/uL C-Reactive Protein 2.11 H (0.0-0.3) mg/dL Result Diagrams: 06/05/21 04:17 06/04/21 05:35 Tre Results Last 24 hrs: Microbiology 06/03/21 00:45 Aerobic Blood Culture - Preliminary Blood - Arm, Left NO GROWTH AFTER 2 DAYS Anaerobic Blood Culture - Preliminary NO GROWTH AFTER 2 DAYS 06/03/21 00:50 Aerobic Blood Culture - Preliminary Blood - Arm, Left NO GROWTH AFTER 2 DAYS Anaerobic Blood Culture - Preliminary NO GROWTH AFTER 2 DAYS Sepsis Event Note - Evaluation Sepsis Screening Result: No Definite Risk - Focused Exam Vital Signs: Vital Signs Temp Pulse Resp BP Pulse Ox 06/05/21 11:00 36.1 C 88 16 115/43 L 98 06/05/21 07:00 36.4 C 76 18 115/53 L 96 06/05/21 03:05 36.2 C 90 18 111/49 L 93 L - Problem List Review Problem List Initiated/Reviewed/Updated: Yes - My Orders Last 24 Hours: My Active Orders 06/05/21 14:25 VITAMIN B12 [CHEM] Routine 06/06/21 05:00 BASIC METABOLIC PANEL,BMP [CHEM] Timed HGB [HEMOGLOBIN] [HEME] Timed 06/06/21 09:00 Cefdinir [Omnicef] 300 mg PO BID - Plan Plan:: ASSESSMENT AND PLAN - ATYPICAL PNEUMONIA, SUSPECTED-initially this was thought to be a pulmonary edema type picture but now suspect viral versus atypical bacterial infection. Slowly improving. We have weaned down the oxygen significantly. -Antibiotic coverage with azithromycin and cefdinir -Supplemental oxygen, wean as able -Physical therapy for strengthening ATRIAL FIBRILLATION-rate has been well controlled. -Continue outpatient medication with metoprolol -Anticoagulation on hold because of recent GI bleed GASTRIC ULCER WITH RECENT UPPER GI BLEED-no evidence of active bleeding at the present time. Hemoglobin stable. -Recheck in the morning -Continue Protonix twice daily -iron supplement after discharge COPD-no evidence of acute exacerbation -Continue outpatient medications MAINTENANCE ISSUES -DVT prophylaxis; sequential compression device, hold on anticoagulation because of recent bleeding -GI prophylaxis; Protonix as above -Bardales catheter; not indicated -Nutrition; 2 g sodium diet DISPOSITION-anticipate discharge to home after the hospital stay, hopefully tomorrow if stable overnight Dennys Grimm MD
[2021-06-05] MEDS: Lactobacillus Rhamnosus GG (Probiotic) Cap PO SCH (20:15)
[2021-06-05] MEDS: Trolamine Salicylate/Aloe Vera 10% Crm 85 GM Tube TOP PRN (20:16)
[2021-06-06] MEDS: Formoterol/Mometasone 100-5 MCG 8.8 GM Inhaler IH SCH (07:19)
[2021-06-06 07:54] VITALS: BP 104/47; PULSE 90
[2021-06-06] MEDS: Pantoprazole 40 MG Tab.CR PO SCH (07:55)
[2021-06-06] MEDS: Lactobacillus Rhamnosus GG (Probiotic) Cap PO SCH (07:59)
[2021-06-06] MEDS: Metoprolol Tartrate 25 MG Tab PO SCH (07:59)
[2021-06-06] MEDS: Azithromycin 250 MG Tab PO SCH (07:59)
[2021-06-06] MEDS ORDERED: Cefdinir 300 MG Cap PO SCH (09:00)
[2021-06-06] MEDS ORDERED: Metoprolol Tartrate 25 MG Tab PO SCH (09:45)
--- NOTE | 2021-06-06 10:50 | PCM.DCSUM1 ---
Discharge Summary - Hospital Course Brief History: 85-year-old female with history of chronic atrial fibrillation on anticoagulation, recent gastrointestinal hemorrhage related to a gastric ulcer who presented with weakness and shortness of breath. She was admitted for management of what was initially suspected to be a congestive heart failure type picture. Diagnosis: Stroke: No - Discharge Data Discharge Date: 06/06/21 Discharge Disposition: Home, W Home Health Agency 06 Condition: Good - Referral to Home Health Date of Face to Face Encounter: 06/06/21 Reason for Homebound Status: Weakness and dyspnea after acute pneumonia Primary Care Physician: Figueroa Coronado MD Skilled Need: Nursing, physical therapy - Discharge Diagnosis/Problem(s) (1) Bilateral pneumonia SNOMED Code(s): 206197111 ICD Code: J18.9 - PNEUMONIA, UNSPECIFIED ORGANISM Status: Acute Qualifiers: Pneumonia type: due to unspecified organism Lung location: unspecified part of lung Qualified Code(s): J18.9 - Pneumonia, unspecified organism (2) Acute respiratory failure with hypoxia SNOMED Code(s): 47501826, 015400135 ICD Code: J96.01 - ACUTE RESPIRATORY FAILURE WITH HYPOXIA Status: Acute (3) Gastric ulcer SNOMED Code(s): 511499876 ICD Code: K25.9 - GASTRIC ULCER, UNSP ACUTE OR CHRONIC, W/O HEMOR OR PERF Status: Acute Qualifiers: Gastric ulcer chronicity: acute Gastric ulcer complication status: unspecified whether hemorrhage or perforation present Qualified Code(s): K25.3 - Acute gastric ulcer without hemorrhage or perforation (4) Hypokalemia SNOMED Code(s): 37501218 ICD Code: E87.6 - HYPOKALEMIA Status: Acute (5) Chronic atrial fibrillation SNOMED Code(s): 147187538 ICD Code: I48.20 - CHRONIC ATRIAL FIBRILLATION, UNSPECIFIED Status: Chronic - Patient Summary/Data Consults: Consultations 06/04/21 10:39 PT Evaluation and Treatment [CONS] Routine Please Evaluate and Treat. PT Reason for Consult: Strengthening Pending Discharge: Yes Discharge Disposition: Home w Home Health This query below is only for informational purposes and is not editable. Admission Diagnosis/Problem: Pneumonia 06/04/21 10:40 OT Evaluation and Treatment [CONS] Routine Please Evaluate and Treat. OT Reason for Consult: ADL's Pending Discharge: Yes Discharge Disposition: Home w [facility] This query below is only for informational purposes and is not editable. Admission Diagnosis/Problem: Pneumonia Hospital Course: Jose presented to the emergency room with progressive shortness of breath as well as some right-sided chest pain. Work-up in the emergency room revealed hypoxic respiratory failure and initially there was concern for congestive heart failure. The x-ray was suggestive of pulmonary edema. Patient was aggressively diuresed during the day and had a very good response to diuresis. However she continued to be hypoxic and did not feel significantly better. She was admitted to the hospital for further diuresis and work-up of suspected c ongestive heart failure. After admission a CT pulmonary angiogram was obtained and did show some patchy infiltrates that were consistent with pneumonitis, either viral or bacterial. Patient did have a procalcitonin level that was in the range suggestive of lower respiratory tract infection. The next morning the patient was started on antibiotic therapy with levofloxacin and ceftriaxone. Unfortunately she had a reaction with significant rash at the injection site to the levofloxacin. This was discontinued and she was started on oral azithromycin. It was not entirely clear if this represented a bacterial or a viral infection since her white count was normal but she did have the elevated procalcitonin. Respiratory virus testing was all negative. Over the next couple of days we did see a steady trend towards improvement. We are able to wean down her supplemental oxygen and eventually wean off her supplemental oxygen. All of her cultures remained negative. Strength and appetite have been improving. Overall she is feeling better since admission. Now that we have been able to wean her off the supplemental oxygen she feels well enough to go home. The plan is for her to continue antibiotics after hospital discharge. She will be on azithromycin for 1 more day and cefdinir for 3-1/2 more days. She has home care set up. We did reduce the dose of her metoprolol slightly. T he plan is for her to restart her warfarin tomorrow. She has early primary care follow-up. - Patient Instructions Diet: Regular Diet as Tolerated Diet, Other: no extra salt Activity: As Tolerated Showering/Bathing: May Shower Other/Special Instructions: 1. You were in the hospital for management of an atypical pneumonia that led to hypoxic respiratory failure. We did not determine a causative bacteria and all of your cultures were negative. You have been improving with antibiotic therapy provided here in the hospital. I do recommend additional antibiotic therapy to complete treatment after hospital discharge. Please take azithromycin 500 mg for 1 dose. Your first dose outside of the hospital will be due on Thursday morning. Please also take cefdinir 300 mg twice daily with food for 9 doses. Your first dose outside of the hospital will be due tonight around 8 or 9 PM. You may increase your activity as tolerated. 2. Atrial fibrillation management -your blood pressure has been on the low side of normal so I recommend we decrease your metoprolol to 12.5 mg twice daily. You should restart your warfarin on Thursday morning. Please take 5 mg on Thursday, Thursday, Thursday and Thursday and then 2.5 mg daily thereafter. We will schedule a Coumadin check with your follow-up appointment on 06/13. 3. Follow up with Jim Moore on 06/13. You should have your hemoglobin level rechecked at that time. 4. Because of the blood loss related to your recent gastric ulcer I recommend that you take Vitron-C 1 tablet daily to help improve your body's iron stores and give your body of the building blocks to make new red blood cells. You should do this for at least 1 month and preferably 2. 5. A Referral to home health care has been placed. They will provide nursing and physical therapy services to ease your transition home after the hospital stay. - Discharge Plan *PRESCRIPTION DRUG MONITORING PROGRAM REVIEWED*: Not Applicable *COPY OF PRESCRIPTION DRUG MONITORING REPORT IN PATIENT CALE: Not Applicable Prescriptions/Med Rec: Azithromycin 500 mg PO DAILY #1 tablet Warfarin [Coumadin] 2.5 mg PO DAILY #35 tab Metoprolol Tartrate [Lopressor] 12.5 mg PO BID #60 tablet Cefdinir [Omnicef] 300 mg PO BID #9 cap Ferrous Fumarate/Vitamin C [Vitron-C] 1 tab PO DAILY #30 tablet Home Medications: Home Meds Albuterol Sulfate [Proair Hfa] 2 puff IH ASDIRECTED PRN 03/09/13 [History] Calcium/Mag/D3/B12/FA/B6/[place] [Folgard OS] 1 each PO DAILY 03/09/13 [History] Multivitamin [Multi-Vitamin Daily] 1 each PO DAILY 03/09/13 [History] Fluticasone/Vilanterol [Breo Ellipta 100-25 MCG Inhalation Kit] 1 inh INH DAILY 07/31/18 [History] Pantoprazole [ProTONIX] 40 mg PO BIDAC #30 tab.cr 05/29/21 [Rx] Azithromycin 500 mg PO DAILY #1 tablet 06/06/21 [Rx] Cefdinir [Omnicef] 300 mg PO BID #9 cap 06/06/21 [Rx] Ferrous Fumarate/Vitamin C [Vitron-C] 1 tab PO DAILY #30 tablet 06/06/21 [Rx] Metoprolol Tartrate [Lopressor] 12.5 mg PO BID #60 tablet 06/06/21 [Rx] Warfarin [Coumadin] 2.5 mg PO DAILY #35 tab 06/06/21 [Rx] Oxygen Therapy Mode: Room Air Patient Handouts: Fall Prevention in the Home, Adult, [id number], Hypoxemia, Community-Acquired Pneumonia, Adult, [id number] Referrals: Coumadin,Clinic [Ordering Only Provider] - 06/13/21 2:30 pm Jim Moore DRY ROLLER [Nurse Practitioner] - 06/13/21 3:20 pm (Please arrive 15 minutes early to register for your appointment. Hemoglobin lab draw prior to appointment with Jim Moore.) - Discharge Summary/Plan Comment DC Time >30 min.: Yes Total # of Minutes for Discharge Time: 40-home health care - Patient Data Vitals - Most Recent: Last Vital Signs Temp 36.0 C L 06/06/21 02:44 Pulse 90 06/06/21 07:59 Resp 16 06/06/21 07:52 BP 104/47 L 06/06/21 07:59 Pulse Ox 93 L 06/06/21 07:52 Weight - Most Recent: 56.9 kg I&O - Last 24 hours: Intake & Output 06/05/21 06/06/21 06/06/21 22:59 06:59 14:59 Intake Total 600 Balance 600 Lab Results - Last 24 hrs: Laboratory Results - last 24 hr 06/05/21 06/06/21 06/06/21 Range/Units 14:25 05:04 05:04 Hgb 9.1 L (12.0-15.0) g/dL Sodium 138 L (140-148) mmol/L Potassium 3.8 (3.6-5.2) mmol/L Chloride 101 (100-108) mmol/L Carbon Dioxide 32 (21-32) mmol/L Anion Gap 8.8 (5.0-14.0) mmol/L BUN 16 (7-18) mg/dL Creatinine 0.6 (0.6-1.0) mg/dL Est Cr Clr Drug Dosing 60.46 mL/min Estimated GFR (MDRD) > 60 (>60) Glucose 104 (74-106) mg/dL Calcium 8.4 L (8.5-10.1) mg/dL Vitamin B12 419 (193-986) pg/ml RADHA Results - Last 24 hrs: Microbiology 06/03/21 00:50 Aerobic Blood Culture - Preliminary Blood - Arm, Left NO GROWTH AFTER 3 DAYS Anaerobic Blood Culture - Preliminary NO GROWTH AFTER 3 DAYS 06/03/21 00:45 Aerobic Blood Culture - Preliminary Blood - Arm, Left NO GROWTH AFTER 3 DAYS Anaerobic Blood Culture - Preliminary NO GROWTH AFTER 3 DAYS Med Orders - Current: Current Medications Acetaminophen (Acetaminophen 325 Mg Tab) 650 mg PO Q4H PRN PRN Reason: Pain (Mild 1-3)/fever Last Admin: 06/04/21 05:12 Dose: 650 mg Documented by: Albuterol (Albuterol 8 Gm Inhaler) 0 gm INH Q4H PRN PRN Reason: Dyspnea Albuterol/Ipratropium (Albuterol/Ipratropium 3.0-0.5 Mg/3 Ml Neb Soln) 3 ml NEB QID PRN PRN Reason: Shortness Of Breath/wheezing Azithromycin (Azithromycin 250 Mg Tab) 500 mg PO DAILY [facility] Last Admin: 06/06/21 07:59 Dose: 500 mg Documented by: Cefdinir (Cefdinir 300 Mg Cap) 300 mg PO BID [facility] Last Admin: 06/06/21 07:59 Dose: 300 mg Documented by: Diphenhydramine HCl (Diphenhydramine 25 Mg/10 Ml Cup) 12.5 mg PO Q6H PRN PRN Reason: Itching Last Admin: 06/03/21 09:43 Dose: 12.5 mg Documented by: Lactobacillus Rhamnosus (Lactobacillus Rhamnosus Gg (Probiotic) Cap) 1 cap PO BID [facility] Last Admin: 06/06/21 07:59 Dose: 1 cap Documented by: Metoprolol Tartrate (Metoprolol Tartrate 25 Mg Tab) 12.5 mg PO BID [facility] Mometasone Furoate/Formoterol Fumar (Formoterol/Mometasone 100-5 Mcg 8.8 Gm Inhaler) 2 puff IH BIDRT BENNETT Last Admin: 06/06/21 07:19 Dose: 2 puff Documented by: Ondansetron HCl (Ondansetron 4 Mg/2 Ml Sdv) 4 mg IV Q4H PRN PRN Reason: Nausea/Vomiting Pantoprazole Sodium (Pantoprazole 40 Mg Tab.Cr) 40 mg PO BIDAC [facility] Stop: 06/11/21 16:31 Last Admin: 06/06/21 07:55 Dose: 40 mg Documented by: Pantoprazole Sodium (Pantoprazole 40 Mg Tab.Cr) 40 mg PO DAILY@729 [facility] Polyethylene Glycol (Polyethylene Glycol 3350 Powder 17 Gm Packet) 17 gm PO DAILY PRN PRN Reason: Constipation Sodium Chloride (Sodium Chloride 0.9% 10 Ml Syringe) 10 ml FLUSH ASDIRECTED PRN PRN Reason: Keep Vein Open Trolamine Salicylate (Trolamine Salicylate/Aloe Vera 10% Crm 85 Gm Tube) 0 gm TOP Q1H PRN PRN Reason: knee pain Last Admin: 06/05/21 20:16 Dose: 1 applic Documented by: Discontinued Medications Albuterol (Albuterol 8 Gm Inhaler) gm INH ASDIRECTED PRN PRN Reason: Dyspnea Albuterol/Ipratropium (Albuterol/Ipratropium 3.0-0.5 Mg/3 Ml Neb Soln) 3 ml NEB ONETIME ONE Stop: 06/02/21 10:29 Last Admin: 06/02/21 11:02 Dose: 3 ml Documented by: Aspirin (Aspirin 81 Mg Tab.Chew) 324 mg PO ONETIME ONE Stop: 06/02/21 10:25 Last Admin: 06/02/21 11:01 Dose: 324 mg Documented by: Furosemide (Furosemide 40 Mg/4 Ml Vial) 40 mg IVPUSH ONETIME ONE Stop: 06/02/21 11:21 Last Admin: 06/02/21 11:28 Dose: 40 mg Documented by: Furosemide (Furosemide 40 Mg/4 Ml Vial) 40 mg IVPUSH ONETIME ONE Stop: 06/02/21 16:49 Last Admin: 06/02/21 17:03 Dose: 40 mg Documented by: Potassium Chloride 20 meq/ (Premix) 100 mls @ 50 mls/hr IV ONETIME ONE Stop: 06/02/21 19:43 Last Admin: 06/02/21 18:45 Dose: 50 mls/hr Documented by: Sodium Chloride (Normal Saline) 80 mls @ 3.5 mls/sec IV ASDIRECTED [facility] Last Admin: 06/02/21 22:05 Dose: 3.5 mls/sec Documented by: Piperacillin Sod/Tazobactam (Sod 3.375 gm/ Sodium Chloride) 50 mls @ 100 mls/hr IV Q6H [facility] Last Admin: 06/03/21 08:36 Dose: Not Given Documented by: Vancomycin HCl 0.75 gm/ Sodium (Chloride) 250 mls @ 166.667 mls/hr IV Q12H [facility] Last Admin: 06/03/21 01:38 Dose: 166.667 mls/hr Documented by: Sterile Water (Sterile Water For Injection) Confirm Administered Dose 20 mls @ as directed .ROUTE .STK-MED ONE Stop: 06/03/21 01:02 Last Admin: 06/03/21 01:24 Dose: Not Given Documented by: Vancomycin HCl 1 gm/ Sodium (Chloride) 250 mls @ 166.667 mls/hr IV Q12H [facility] Last Admin: 06/04/21 01:03 Dose: 166.667 mls/hr Documented by: Levofloxacin/Dextrose 750 mg/ (Premix) 150 mls @ 100 mls/hr IV Q24H [facility] Last Admin: 06/03/21 08:44 Dose: 100 mls/hr Documented by: Ceftriaxone Sodium 1 gm/ (Sodium Chloride) 50 mls @ 100 mls/hr IV Q24H [facility] Last Admin: 06/05/21 10:58 Dose: 100 mls/hr Documented by: Iopamidol (Iopamidol 755 Mg/Ml 100 Ml Bottle) 55 ml IV . DIRECTED ONE Stop: 06/02/21 21:31 Last Admin: 06/02/21 22:05 Dose: 55 ml Documented by: Lidocaine HCl (Lidocaine 1% 5 Ml Sdv) 2 ml INJECT ONETIME ONE Stop: 06/02/21 18:18 Last Admin: 06/02/21 18:45 Dose: 2 ml Documented by: Metoprolol Tartrate (Metoprolol Tartrate 25 Mg Tab) 25 mg PO BID [facility] Last Admin: 06/06/21 07:59 Dose: Not Given Documented by: Potassium Chloride (Potassium Chloride 20 Meq Tab.Er) 40 meq PO ONETIME ONE Stop: 06/02/21 17:45 Last Admin: 06/02/21 18:21 Dose: 40 meq Documented by: Potassium Chloride (Potassium Chloride 20 Meq Tab.Er) 40 meq PO ONETIME ONE Stop: 06/03/21 08:31 Last Admin: 06/03/21 08:44 Dose: 40 meq Documented by: Sodium Chloride (Sodium Chloride 0.9% 10 Ml Syringe) 10 ml FLUSH ONETIME ONE Stop: 06/02/21 21:41 Last Admin: 06/02/21 23:38 Dose: Not Given Documented by: Vancomycin HCl (Vancomycin 1 Gm Sdv) 0 gm IV .PHARMACY TO DOSE [facility] Stop: 06/03/21 08:00 *Q Meaningful Use (DIS) - VTE *Q VTE Pharmacological Contraindications *Q: Active Hemorrhage
[2021-06-12] MEDS ORDERED: Pantoprazole 40 MG Tab.CR PO SCH (07:30)
== END 2021-06-06 13:59 | disposition home health service (06) | DRG 193 ==
LOC: JP.ED 09:16 → JP.MS 19:59 → OBSVTOIN 06-03 11:56
PROVIDERS: ADMIT Hospitalist; ATTEND Internal Medicine
DX: J18.9 Pneumonia, unspecified organism (principal); R09.02 Hypoxemia; J96.01 Acute respiratory failure with hypoxia; I48.20 Chronic atrial fibrillation, unspecified; K25.3 Acute gastric ulcer without hemorrhage or perforation; E87.6 Hypokalemia; H54.7 Unspecified visual loss; I48.91 Unspecified atrial fibrillation; J44.9 Chronic obstructive pulmonary disease, unspecified; M19.90 Unspecified osteoarthritis, unspecified site; Z20.822 Contact with and (suspected) exposure to COVID-19; I50.9 Heart failure, unspecified; K21.9 Gastro-esophageal reflux disease without esophagitis; Z91.09 Other allergy status, other than to drugs and biological substances; Z79.01 Long term (current) use of anticoagulants; Z88.5 Allergy status to narcotic agent; Z88.2 Allergy status to sulfonamides; Z79.899 Other long term (current) drug therapy; Z98.49 Cataract extraction status, unspecified eye; Z90.49 Acquired absence of other specified parts of digestive tract; Z90.710 Acquired absence of both cervix and uterus; Z88.0 Allergy status to penicillin; Z88.6 Allergy status to analgesic agent; Z87.11 Personal history of peptic ulcer disease
CPT/HCPCS: 0241U; 36415; 71045; 71275; 80048; 80053; 82607; 83605; 83880; 84132; 84145; 84484; 85018; 85025; 85027; 86140; 87040; 93306; 94640; 96365; 96366; 96375; 96376; 97110; 97162; 97165; 97530; 99285; 96367; 96368; A9270-GY; G0378; J0696; J1940; J1956; J2543; J3370; J3480; J7050; J7620-GY; Q9967

== ENCOUNTER 2021-06-24 05:28 | Day surgery (SDC) | payer MEDICARE, BC ==
[2021-06-24] MEDS ORDERED: Dextrose 5%-Lactated Ringers 1,000 ML IV SCH (06:00)
[2021-06-24] MEDS ORDERED: Propofol 200 MG/20 ML SDV ONE (07:08)
[2021-06-24 08:50] VITALS: BP 121/67; PULSE 79
--- NOTE | 2021-07-03 12:24 | OR ---
DATE OF PROCEDURE: 06/24/2021 SURGEON: Theo Hodge MD PREOPERATIVE DIAGNOSES: 1. History of gastric ulcer. 2. Dysphagia referable to distal esophagus. POSTOPERATIVE DIAGNOSES: 1. Healed gastric ulcer with focal mild antral gastritis. 2. Minimal retained solid food within the stomach suggestive of element of gastroparesis. 3. Small hiatal hernia without inflammation or stricturing. OPERATIVE PROCEDURES: Esophagogastroduodenoscopy with: 1. Biopsy of antrum for CLOtest. 2. Dilation of esophagus. ANESTHESIA: IV sedation. INDICATION FOR PROCEDURE: This is an 85-year-old female presenting for followup of gastric ulcer, which was seen on 05/25/2021 at the time of endoscopy. She has been on Protonix 40 mg b.i.d., and plan is to proceed with an upper endoscopy to ascertain the extent of healing of the ulcer. The patient recently has complained also of some dysphagia referable to the distal esophagus, and unless there appeared to be any contraindication, we will likely proceed with an esophageal dilation to see if by some chance that is helpful with regard to those symptoms. Potential risks of the procedure including bleeding and perforation were discussed, and the patient wishes to proceed. DETAILS OF PROCEDURE: The patient was taken to the operating room and placed in a left lateral decubitus position. IV sedation was administered after which the upper GI endoscope was passed orally through the length of esophagus, into the stomach with retroflexion view of the fundus, and thereafter through the pyloric channel into the proximal duodenum. Findings included a normal hypopharynx, larynx, and upper esophageal sphincter. Within the distal esophagus, there was roughly a 2 cm hiatal hernia. This was not associated with any significant inflammation or stricturing. Within the stomach, there was noted to be a small amount of retained bile and some scattered old material was relatively minimal in terms of volume, but would be suggestive of element of gastric motility disorder or gastroparesis. The area of the ulceration seen previously was now healed with intact mucosa throughout the surface. This still had an area of mild antral gastritis. The pyloric channel and proximal duodenum were otherwise unremarkable. At this point, biopsies were obtained from the antrum to once again assess the patient's H. pylori status. Minimal bleeding from the biopsy site was seen. The gastroscope was then withdrawn as the guidewire was left in the stomach. Over the guidewire, then a 48-[place] Savary dilator was placed and held in position for 1 minute to see if there was some dilation that might be helpful with regard to the dysphagia. Wire and dilator were then removed, and the procedure concluded. There were no evident complications. The patient is presently on Protonix 40 mg b.i.d. At this point, I think we will once a day dose. We will contact the patient if CLOtest happens to be positive. Otherwise, she will be following with Jim Moore CNP, in [facility] in 3 to 4 weeks. Theo Hodge MD /[id number]
== END 2021-06-24 09:20 | disposition home or self-care (01) ==
LOC: JP.SDS 05:28
PROVIDERS: ATTEND Surgery
DX: R13.10 Dysphagia, unspecified (principal); K25.9 Gastric ulcer, unspecified as acute or chronic, without hemorrhage or perforation; K29.60 Other gastritis without bleeding; K44.9 Diaphragmatic hernia without obstruction or gangrene; J45.909 Unspecified asthma, uncomplicated; I48.91 Unspecified atrial fibrillation
CPT/HCPCS: 43239; 43248; 87081; J2704; J7121

== ENCOUNTER 2023-04-15 09:56 | Inpatient (IN) | payer MEDICARE, BC ==
[2023-04-15 10:29] LABS: BASOPHILS PERCENT AUTO 0.1 % (0.1-1.3); HEMATOCRIT 37.4 % (34.3-46.0); HEMOGLOBIN 11.7 g/dL (11.2-15.5); IMMATURE GRAN ABSOLUTE AUTO 0.03 K/uL (0.00-0.23); IMMATURE GRAN PERCENT AUTO 0.3 % (0.0-0.7); LYMPHOCYTES ABSOLUTE AUTO 0.42 K/uL (0.8-3.3); LYMPHOCYTES PERCENT AUTO 4.9 % (11.4-47.7); MEAN CORPUSCULAR HEMOGLOBIN 32.1 pg (31.6-35.5); MEAN CORPUSCULAR HGB CONC 31.3 g/dL (31.6-35.5); MEAN CORPUSCULAR VOLUME 102.5 fL (81.4-99.0); MONOCYTES ABSOLUTE AUTO 0.56 K/uL (0.20-0.90); MONOCYTES PERCENT AUTO 6.5 % (3.3-12.6); NEUTROPHILS ABSOLUTE AUTO 7.61 K/uL (1.0-7.6); NEUTROPHILS PERCENT AUTO 88.2 % (40.0-78.1); PLATELET COUNT,PLT 211 K/uL (130-375); RED BLOOD CELL COUNT 3.65 M/uL (3.77-5.24); WHITE BLOOD CELL COUNT,WBC 8.6 K/uL (3.2-11.0)
[2023-04-15] MEDS ORDERED: Sodium Chloride 0.9% 10 ML Syringe FLUSH PRN ×2 (10:31→18:05)
[2023-04-15 10:33] LABS: BASE EXCESS VENOUS 14.8 mm/L; BASOPHILS ABSOLUTE AUTO 0.01 K/uL (0.00-0.10); BICARBONATE,VENOUS 43.4 mmol/L; CARBOXYHEMOGLOBIN 3.6 % (0.0-1.6); METHEMOGLOBIN 0.5 %; O2 SATURATION VENOUS 87.6; PCO2 VENOUS 79.1 mm/Hg; PH,VENOUS 7.358 (7.350-7.450); PO2 VENOUS 55.3 mm/Hg
[2023-04-15] MEDS ORDERED: Furosemide 40 MG/4 ML VIAL IVPUSH ONE (10:34)
[2023-04-15 10:59] LABS: BLOOD UREA NITROGEN,BUN 19 mg/dL (7-18); CALCIUM 8.6 mg/dL (8.5-10.1); CARBON DIOXIDE,CO2 42 mmol/L (21-32); CHLORIDE,CL 92 mmol/L (100-108); CREATININE 0.5 mg/dL (0.6-1.0); ESTIMATED GFR 90 mL/min (>60); GLUCOSE RANDOM 112 mg/dL (74-106); POTASSIUM,K 4.9 mmol/L (3.6-5.2); SODIUM,NA 134 mmol/L (140-148)
[2023-04-15 11:00] LABS: ANION GAP 4.9 mmol/L (5.0-14.0)
[2023-04-15 11:14] LABS: CORONAVIRUS COVID-19 NAA NEGATIVE (NEGATIVE); INFLUENZA A NAA NEGATIVE (NEGATIVE); INFLUENZA B NAA NEGATIVE (NEGATIVE); RESPIRATORY SYNCYTIAL VIR NAA NEGATIVE (NEGATIVE)
[2023-04-15] MEDS ORDERED: Magnesium Sulfate/Water 2 GM in Premix Bag 1 BAG IV ONE (11:35)
[2023-04-15] MEDS ORDERED: Sodium Chloride 0.9% 100 ML IV SCH (16:30)
[2023-04-15] MEDS ORDERED: Iopamidol 755 Mg/ML 100 ML Bottle IV SCH (16:30)
[2023-04-15] MEDS ORDERED: Albuterol 6.7 GM Inhaler INH PRN (18:05)
[2023-04-15] MEDS ORDERED: Albuterol/Ipratropium 3.0-0.5 MG/3 ML Neb Soln NEB PRN (18:05)
[2023-04-15] MEDS ORDERED: Polyethylene Glycol 3350 Powder 17 GM Packet PO PRN (18:05)
[2023-04-15] MEDS ORDERED: Ondansetron 4 MG/2 ML SDV IV PRN (18:05)
[2023-04-15] MEDS ORDERED: Acetaminophen 325 MG Tab PO PRN (18:05)
[2023-04-15 18:16] LABS: PROTHROMBIN TIME 62.3 sec (9.2-10.6)
[2023-04-15 18:18] LABS: INR 6.9
[2023-04-15] MEDS ORDERED: Phytonadione 1 MG in Sodium Chloride 0.9% 50 ML IV ONE (18:30)
[2023-04-15] MEDS ORDERED: cefTRIAXone 1 GM in Sodium Chloride 0.9% 50 ML IV SCH (18:45)
[2023-04-15] MEDS: Doxycycline 100 MG in Sodium Chloride 0.9% 100 ML IV SCH (20:24)
[2023-04-15] MEDS: Metoprolol Tartrate 25 MG Tab PO SCH (20:53)
[2023-04-16 05:06] LABS: HEMATOCRIT 35.7 % (34.3-46.0); HEMOGLOBIN 11.2 g/dL (11.2-15.5); MEAN CORPUSCULAR HEMOGLOBIN 32.7 pg (31.6-35.5); MEAN CORPUSCULAR HGB CONC 31.4 g/dL (31.6-35.5); MEAN CORPUSCULAR VOLUME 104.1 fL (81.4-99.0); RED BLOOD CELL COUNT 3.43 M/uL (3.77-5.24); WHITE BLOOD CELL COUNT,WBC 8.2 K/uL (3.2-11.0)
[2023-04-16 05:21] LABS: CALCIUM 8.5 mg/dL (8.5-10.1); CREATININE 0.4 mg/dL (0.6-1.0); EST CRCL DRUG DOSING (CG) 89.59 mL/min; MAGNESIUM 1.8 mg/dL (1.8-2.4); POTASSIUM,K 4.5 mmol/L (3.6-5.2)
[2023-04-16 05:23] LABS: INR 2.2; PROTHROMBIN TIME 21.3 sec (9.2-10.6)
[2023-04-16 05:32] LABS: ANION GAP 4.5 mmol/L (5.0-14.0)
[2023-04-16] MEDS: Formoterol/Mometasone 100-5 MCG 8.8 GM Inhaler IH SCH ×2 (08:18→20:38)
[2023-04-16] MEDS: Metoprolol Tartrate 25 MG Tab PO SCH ×2 (08:42→20:38)
[2023-04-16] MEDS: Doxycycline 100 MG in Sodium Chloride 0.9% 100 ML IV SCH (08:50)
[2023-04-16] MEDS ORDERED: Formoterol/Mometasone 100-5 MCG 8.8 GM Inhaler IH SCH (09:00)
[2023-04-16] MEDS ORDERED: Furosemide 40 MG/4 ML VIAL IVPUSH SCH (09:00)
[2023-04-16] MEDS ORDERED: Non-Formulary Medication 1 Each (Fluticasone/Vilanterol 1 EACH Each) INH SCH (09:00)
[2023-04-16] MEDS ORDERED: Warfarin 2.5 MG Tab PO SCH (13:00)
[2023-04-16] MEDS ORDERED: Morphine 10 MG/0.5 ML Oral Syringe PO PRN (16:49)
[2023-04-16] MEDS ORDERED: LORazepam 0.5 MG Tab PO PRN (16:49)
[2023-04-17 05:16] VITALS: BP 87/55; PULSE 105
[2023-04-17 06:10] LABS: INR 1.5; PROTHROMBIN TIME 14.7 sec (9.2-10.6)
[2023-04-17] MEDS: Formoterol/Mometasone 100-5 MCG 8.8 GM Inhaler IH SCH (07:41)
[2023-04-17] MEDS: Metoprolol Tartrate 25 MG Tab PO SCH (09:32)
== END 2023-04-17 10:30 | disposition hospice, home (50) | DRG 291 ==
LOC: JP.ED 09:56 → JP.MS 16:16
PROVIDERS: ADMIT Hospitalist; ATTEND Hospitalist
PROC: 4A033R1 Measurement of Arterial Saturation, Peripheral, Percutaneous Approach (ICD-10-PCS; principal; 2023-04-15)
PROC: 5A09357 Assistance with Respiratory Ventilation, Less than 24 Consecutive Hours, Continuous Positive Airway Pressure (ICD-10-PCS; 2023-04-15)
DX: I50.9 Heart failure, unspecified (principal); I50.33 Acute on chronic diastolic (congestive) heart failure; J44.9 Chronic obstructive pulmonary disease, unspecified; J96.21 Acute and chronic respiratory failure with hypoxia; I48.11 Longstanding persistent atrial fibrillation; I48.20 Chronic atrial fibrillation, unspecified; Z66 Do not resuscitate; Z20.822 Contact with and (suspected) exposure to COVID-19; Z99.81 Dependence on supplemental oxygen; K21.9 Gastro-esophageal reflux disease without esophagitis; E83.42 Hypomagnesemia; J43.9 Emphysema, unspecified; Z79.51 Long term (current) use of inhaled steroids; Z79.899 Other long term (current) drug therapy; Z79.01 Long term (current) use of anticoagulants; Z51.5 Encounter for palliative care; Z88.8 Allergy status to other drugs, medicaments and biological substances; Z91.040 Latex allergy status; Z98.49 Cataract extraction status, unspecified eye; Z90.89 Acquired absence of other organs; Z90.49 Acquired absence of other specified parts of digestive tract; Z98.890 Other specified postprocedural states; Z90.710 Acquired absence of both cervix and uterus; Z90.721 Acquired absence of ovaries, unilateral; Z88.0 Allergy status to penicillin; Z88.2 Allergy status to sulfonamides
CPT/HCPCS: 0241U; 36415; 71045; 71275; 80048; 82803; 83735; 83880; 84145; 84484; 85025; 85027; 85610; 87040; 94640; 94660; 96365; 96366; 96375; 99285; A9270-GY; J0696; J1940; J3430; J3475; J3490; J7620; Q9967